=== PATIENT | female | born 1945 | race Caucasian/White ===

== ENCOUNTER 2017-06-03 18:39 | Inpatient (IN) | payer MEDICARE ==
[~2017-06-03] VITALS: Ht 160 cm; Wt 95.7 kg
--- NOTE | 2017-06-03 18:42 | ED.ADGEN ---
Past History Past Medical History: Angina, Anxiety, Depression, Other Adult General Chief Complaint Chief Complaint ".. They took some meds away... and am getting more night terrors... I just so depressed I want to .. I have got as bad when I tried to kill myself after delivery of my daughter and ended up at [facility] Psych..but been really bad since my diet in 2013.. and I just really worse the last few days..." HPI HPI Patient is a 71 year old female who presents with above hx and sent from [facility] for mental status change. Pt. recently discharged from [facility] to [facility]. Pt. threatening suicide at [facility], depressed, anxious, refusing to participate in her care. 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 Pt. currently very tearful and anxious. Pt. reports suicide ideation, but no plan. Daughter at bed side. Review of Systems Review of Systems Complaints of Depression. Constitutional: Denies fever or chills [] Eyes: Denies change in visual acuity, redness, or eye pain [] HENT: Denies nasal congestion or sore throat [] Respiratory: Denies cough or shortness of breath [] Cardiovascular: No additional information not addressed in HPI [] GI: Denies abdominal pain, nausea, vomiting, bloody stools or diarrhea [] : Denies dysuria or hematuria [] Musculoskeletal: Denies back pain or joint pain [] Integument: Denies rash or skin lesions [] Neurologic: Denies headache, focal weakness or sensory changes [] Endocrine: Denies polyuria or polydipsia [] All other systems were reviewed and found to be within normal limits, except as documented in this note. Family History Family History Non-contributory. Current Medications Current Medications Current Medications Medications (Trade) Dose Ordered Sig/Shahnaz Start Time Stop Time Status Last Admin Dose Admin Lactated Ringer's 1,000 ml @ 500 mls/hr 1X ONCE 06/03/17 18:45 06/03/17 20:44 DC 06/03/17 20:16 500 MLS/HR Allergies Allergies Allergies Coded Allergies Type Severity Reaction Last Updated Verified acetaminophen Allergy Unknown Unknown 06/03/17 Yes adhesive Allergy Unknown Unknown 06/03/17 Yes azithromycin Allergy Unknown Unknown 06/03/17 Yes hydrocodone Allergy Unknown Unknown 06/03/17 Yes latex Allergy Unknown Unknown 06/03/17 Yes nortriptyline Allergy Unknown Unknown 06/03/17 Yes olanzapine Allergy Unknown Unknown 06/03/17 Yes quetiapine Allergy Unknown Unknown 06/03/17 Yes tolmetin Allergy Unknown Unknown 06/03/17 Yes Physical Exam Physical Exam Constitutional: in acute emotional distress, non-toxic appearance. [Tearful. Crying. HENT: Normocephalic, atraumatic, bilateral external ears normal, oropharynx moist, no oral exudates, nose normal. [] Eyes: PERRLA, EOMI, conjunctiva normal, no discharge. [] Neck: Normal range of motion, no tenderness, supple, no stridor. [] Cardiovascular:Heart rate regular rhythm, no murmur [] Lungs & Thorax: Bilateral breath sounds equal at apex, with few scattered wheezes on auscultation [] Abdomen: Bowel sounds normal, soft, no tenderness, no masses, no pulsatile masses. [] Obese. Skin: Warm, dry, no erythema, no rash. [] Back: No tenderness, no CVA tenderness. [] Extremities: No tenderness, no cyanosis, no clubbing, ROM intact, no edema. [] Neurologic: Alert and oriented X 3, No gross motor or sensory function deficits from her baseline, no new focal deficits noted. [] Psychologic: Affect very anxious, judgement normal, mood depressed. Current Patient Data Vital Signs Vital Signs Date Time Temp Pulse Resp B/P (MAP) Pulse Ox O2 Delivery O2 Flow Rate FiO2 06/04/17 04:00 88 18 152/76 (101) 94 Room Air 06/03/17 18:39 98.0 Lab Results Laboratory Tests Test 06/03/17 19:08 06/03/17 19:39 White Blood Count 10.8 x10^3/uL (4.0-11.0) Red Blood Count 4.54 x10^6/uL (3.50-5.40) Hemoglobin 12.5 g/dL (12.0-15.5) Hematocrit 37.3 % (36.0-47.0) Mean Corpuscular Volume 82 fL (79-100) Mean Corpuscular Hemoglobin 28 pg (25-35) Mean Corpuscular Hemoglobin Concent 33 g/dL (31-37) Red Cell Distribution Width 15.8 % (11.5-14.5) H Platelet Count 256 x10^3/uL (140-400) Neutrophils (%) (Auto) 67 % (31-73) Lymphocytes (%) (Auto) 23 % (24-48) L Monocytes (%) (Auto) 6 % (0-9) Eosinophils (%) (Auto) 4 % (0-3) H Basophils (%) (Auto) 1 % (0-3) Neutrophils # (Auto) 7.2 x10^3uL (1.8-7.7) Lymphocytes # (Auto) 2.4 x10^3/uL (1.0-4.8) Monocytes # (Auto) 0.6 x10^3/uL (0.0-1.1) Eosinophils # (Auto) 0.4 x10^3/uL (0.0-0.7) Basophils # (Auto) 0.1 x10^3/uL (0.0-0.2) Prothrombin Time 9.5 SEC (9.4-11.4) Prothrombin Time INR 0.9 (0.9-1.1) PTT 28 SEC (23-33) Sodium Level 140 mmol/L (136-145) Potassium Level 4.2 mmol/L (3.5-5.1) Chloride Level 105 mmol/L (98-107) Carbon Dioxide Level 27 mmol/L (21-32) Anion Gap 8 (6-14) Blood Urea Nitrogen 22 mg/dL (7-20) H Creatinine 1.1 mg/dL (0.6-1.0) H Estimated GFR (Cockcroft-Gault) 49.1 Glucose Level 100 mg/dL (70-99) H Calcium Level 8.8 mg/dL (8.5-10.1) Magnesium Level 2.3 mg/dL (1.8-2.4) Creatine Kinase 47 U/L (26-192) Creatine Kinase MB (Mass) < 0.5 ng/mL (0.0-3.6) Creatine Kinase MB Relative Index 1.1 % (0-4) Troponin I Quantitative < 0.017 ng/mL (0-0.055) CD-Gjf-E-Type Natriuretic Peptide 25 pg/mL (0-124) Salicylates Level 1.6 mg/dL (2.8-20.0) L Salicylate Last Dose Date Unknown Salicylate Last Dose Time Unknown Acetaminophen Level < 2.0 mcg/mL (10-30) L Acetaminophen Last Dose Date Unknown Acetaminophen Last Dose Time Unknown Urine Collection Type Unknown Urine Color Yellow Urine Clarity Hazy Urine pH 5.5 Urine Specific [place] 1.020 Urine Protein Neg (NEG-TRACE) Urine Glucose (UA) Neg mg/dL (NEG) Urine Ketones (Stick) Neg mg/dL (NEG) Urine Blood Neg (NEG) Urine Nitrite Neg (NEG) Urine Bilirubin Neg (NEG) Urine Urobilinogen Dipstick 0.2 mg/dL (0.2 mg/dL) Urine Leukocyte Esterase Neg (NEG) Urine RBC 1-2 /HPF (0-2) Urine WBC 5-10 /HPF (0-4) Urine Squamous Epithelial Cells Many /LPF Urine Bacteria Few /HPF (0-FEW) Urine Mucus Slight /LPF Urine Opiates Screen Neg (NEG) Urine Methadone Screen Neg (NEG) Urine Barbiturates Neg (NEG) Urine Phencyclidine Screen Neg (NEG) Urine Amphetamine/Methamphetamine Neg (NEG) Urine Benzodiazepines Screen Pos (NEG) Urine Cocaine Screen Neg (NEG) Urine Cannabinoids Screen Neg (NEG) Urine Ethyl Alcohol Neg (NEG) EKG EKG My interpretation of EKG shows sinus rate 70, Lt. axis, no acute STEM findings with contralateral changes. [] Radiology/Procedures Radiology/Procedures My interpretation of CXR shows COPD changes. Borderline cardiomegaly. No acute cardiopulmonary changes. My interpretation of CT shows[no shift, mass, edema, bleed, or fx. White matter dz changes, atrophy. See formal when available. ] Course & Med Decision Making Course & Med Decision Making Pertinent Labs and Imaging studies reviewed. (See chart for details) Still awaiting Tele Psych. eval. Camera is down. 2230 hrs. Still awaiting Tele. Psych. eval. Camera is still down after IT. 2330 hrs. Requesting Telephone eval or interview with pt. if unable to get Tele Psych. eval. Pt. back of waiting list for Tele. Psych. eval. by phone. 0030 hrs. Still awaiting Tele. Psych. eval. was advised still on the list for evaluation. 0200. Still awaiting Tele. Psych. eval. 0330. Still awaiting Tele. Psych. eval 0600. - Check to Dr. Garcia. Tele. Psych currently in process at 0700. See assessment by Dr. Samina Mena- [] Final Impression Final Impression 1. Mental Status Change[] 2. Depression 3. Suicidal Ideation- No current plan 4. Anxiety Disorder 5. Restless Leg Syndrome 6. Paralytic Night Terrors 7. Elevated BUN and Creat. 8. Dehydration 9. Deconditioning 10. PTSD Problems: Dragon Disclaimer Dragon Disclaimer This electronic medical record was generated, in whole or in part, using a voice recognition dictation system. SHRUTHI RENEE MD Jun 03, 2017 18:42
[2017-06-03] MEDS ORDERED: IV RINGERS SOLUTION,LACTATED 1,000 ML IV ONE (18:45)
--- NOTE | 2017-06-03 19:03 | RAD ---
EXAM: Head CT without contrast. HISTORY: Mental status changes. TECHNIQUE: Computed tomographic images of the head were obtained without contrast. *One or more of the following individualized dose reduction techniques were utilized for this examination: 1. Automated exposure control. 2. Adjustment of the mA and/or kV according to patient size. 3. Use of iterative reconstruction technique. COMPARISON: 12/24/2004. FINDINGS: There is no acute or subacute extra-axial or intraparenchymal hemorrhage. There is no mass effect or midline shift. There is no hydrocephalus. There are areas of decreased attenuation within the cerebral white matter, nonspecific and likely related to chronic small vessel disease. The visualized portions of the orbits, paranasal sinuses and mastoid air cells are unremarkable. No suspicious calvarial lesion is seen. IMPRESSION: 1. No acute intracranial finding. Note is made that MRI is more sensitive for acute infarction. 2. Subtle areas of hypodensity within the cerebral white matter, a nonspecific finding likely due to chronic small vessel disease. Electronically signed by: Gloria Wade MD (06/03/2017 7:00 PM) [facility]
--- NOTE | 2017-06-03 19:05 | EKG ---
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
[2017-06-03 19:44] LABS: BASO # 0.1 x10^3/uL (0.0-0.2); BASO % 1 % (0-3); EOS # 0.4 x10^3/uL (0.0-0.7); EOS % 4 % (0-3); HEMATOCRIT 37.3 % (36.0-47.0); HEMOGLOBIN 12.5 g/dL (12.0-15.5); LYMPH # 2.4 x10^3/uL (1.0-4.8); LYMPH % 23 % (24-48); MEAN CORPUSCULAR HEMOGLOBIN 28 pg (25-35); MEAN CORPUSCULAR HGB CONC 33 g/dL (31-37); MEAN CORPUSCULAR VOLUME 82 fL (79-100); MONO # 0.6 x10^3/uL (0.0-1.1); MONO % 6 % (0-9); NEUT # 7.2 x10^3uL (1.8-7.7); NEUT % 67 % (31-73); PLATELET COUNT 256 x10^3/uL (140-400); RED BLOOD COUNT 4.54 x10^6/uL (3.50-5.40); RED CELL DISTRIBUTION WIDTH 15.8 % (11.5-14.5); WHITE BLOOD COUNT 10.8 x10^3/uL (4.0-11.0)
[2017-06-03 20:02] LABS: ANION GAP 8 (6-14); BLOOD UREA NITROGEN 22 mg/dL (7-20); CALCIUM 8.8 mg/dL (8.5-10.1); CARBON DIOXIDE 27 mmol/L (21-32); CHLORIDE 105 mmol/L (98-107); CREATININE 1.1 mg/dL (0.6-1.0); GFR 49.1; GLUCOSE 100 mg/dL (70-99); MAGNESIUM 2.3 mg/dL (1.8-2.4); POTASSIUM 4.2 mmol/L (3.5-5.1); SODIUM 140 mmol/L (136-145)
[2017-06-03 20:30] LABS: AMPHETAMINE/METHAMPHETAMINE NEG (NEG); BARBITURATES NEG (NEG); BENZODIAZEPINES POS (NEG); CANNABINOIDS NEG (NEG); COCAINE NEG (NEG); METHADONE NEG (NEG); OPIATES NEG (NEG); PHENCYCLIDINE NEG (NEG)
[2017-06-03 20:34] LABS: ACETAMIN < 2.0 mcg/mL (10-30); SALIC 1.6 mg/dL (2.8-20.0)
[2017-06-03 20:53] LABS: BACTERIA,URINE FEW /HPF (0-FEW); BILIRUBIN,URINE NEG (NEG); CLARITY,URINE HAZY; COLOR,URINE YELLOW; GLUCOSE,URINE NEG (NEG); NITRITE,URINE NEG (NEG); SQUAMOUS EPITHELIAL CELL,UR MANY /LPF; UROBILINOGEN,URINE 0.2 mg/dL (0.2 mg/dL)
--- NOTE | 2017-06-04 10:15 | RAD ---
PORTABLE CHEST 1V Clinical Indication: dyspnea Comparison: Chest radiograph dated 04/03/2013 Findings: Low lung volume. No focal consolidations. Normal pulmonary vasculature. No pleural effusion or pneumothorax. The cardiomediastinal silhouette is normal. Mildly atherosclerotic and tortuous thoracic aorta. No acute osseous abnormality. IMPRESSION: No acute cardiopulmonary process.
[2017-06-04] MEDS ORDERED: NARA2.5T PO (21:00)
[2017-06-04] MEDS ORDERED: IBUP600T16 PO (21:00)
[2017-06-04] MEDS ORDERED: DICL100G18 TP (21:00)
[2017-06-04] MEDS ORDERED: ATOR20TA58 PO (21:00)
[2017-06-04] MEDS ORDERED: MAGNESIUM HYDROXIDE 2,400 MG/30 ML ORAL.SUSP. PO PRN (21:00)
[2017-06-04] MEDS ORDERED: CLOB15GE TP (21:00)
[2017-06-04] MEDS ORDERED: DULO60CA6 PO (21:00)
[2017-06-04] MEDS ORDERED: LAMO100T5 PO (21:00)
[2017-06-04] MEDS ORDERED: MAG HYDROX/AL HYDROX/SIMETH 30 ML ORAL.SUSP PO PRN (21:00)
[2017-06-04] MEDS ORDERED: SUMA50TA3 PO (21:00)
[2017-06-04] MEDS ORDERED: MULT-681 PO (21:00)
[2017-06-04] MEDS ORDERED: PRAZ1CAP2 PO (21:00)
[2017-06-04] MEDS ORDERED: L. A1CAP12 PO (21:00)
[2017-06-04] MEDS ORDERED: NYST15CR TP (21:00)
[2017-06-04] MEDS ORDERED: ASPI81TA50 PO (21:00)
[2017-06-04] MEDS ORDERED: ALPR1TAB2 PO (21:00)
[2017-06-04] MEDS: ALPRAZolam 0.5 MG TABLET PO SCH (21:45)
[2017-06-04] MEDS: ATORVASTATIN CALCIUM 20 MG TABLET PO SCH (21:45)
[2017-06-04] MEDS ORDERED: PRAZOSIN 1 MG CAPSULE. PO SCH (22:00)
[2017-06-04] MEDS ORDERED: ALPRAZolam 0.25 MG TABLET PO PRN (22:30)
[2017-06-04] MEDS ORDERED: traZODone 50 MG TABLET. PO PRN (22:30)
[2017-06-04] MEDS ORDERED: hydrOXYzine PAMOATE 25 MG CAPSULE PO PRN (22:30)
--- NOTE | 2017-06-04 22:34 | PDOC ---
Exam Note: Gunner Note: Please also refer to the separate dictated note~for this date of service dictated separately.~Patient seen individually. Discussed the patient with Nursing staff reviewed the chart.~Reviewed interim history and current functioning. Reviewed vital signs,~Labs/ Radiology~and current medications noted below. Continue current treatment with the changes noted in the dictated addendum note Assessment: Vital Signs: Vital Signs Date Time Temp Pulse Resp B/P (MAP) Pulse Ox O2 Delivery O2 Flow Rate FiO2 06/04/17 21:45 88 152/76 06/04/17 04:00 18 94 Room Air 06/03/17 18:39 98.0 I&O Intake and Output 06/04/17 07:00 Intake Total 1000 ml Balance 1000 ml Intake IV Total 1000 ml Labs: Laboratory Tests Test 06/04/17 19:08 Magnesium Level 2.4 mg/dL (1.8-2.4) Current Medications: Meds: Current Medications Lactated Ringer's 1,000 ml @ 500 mls/hr 1X ONCE IV Last administered on at 20:16; Start 06/03/17 at 18:45; Stop 06/03/17 at 20:44; Status DC Al Hydroxide/Mg Hydroxide (Mylanta Plus Xs) 15 ml PRN AFTMEALHC PRN PO DYSPEPSIA; Start 06/04/17 at 21:00 Magnesium Hydroxide (Milk Of Magnesia) 2,400 mg PRN QHS PRN PO CONSTIPATION 1ST CHOICE; Start 06/04/17 at 21:00 Duloxetine HCl (Cymbalta) 60 mg DAILY PO ; Start 06/05/17 at 09:00 Lamotrigine (LaMICtal) 100 mg DAILY PO ; Start 06/05/17 at 09:00 Alprazolam (Xanax) 1 mg BID PO Last administered on 06/04/17at 21:45; Start at 21:30 Atorvastatin Calcium (Lipitor) 20 mg QHS PO Last administered on 06/04/17at 21: 45; Start 06/04/17 at 22:00 Prazosin HCl (Minipress) 1 mg QHS PO Last administered on 06/04/17at 21:45; Start 06/04/17 at 22:00 Trazodone HCl (Desyrel) 50 mg QHS PO ; Start 06/04/17 at 23:00 Trazodone HCl (Desyrel) 50 mg PRN QHS PRN PO Insomnia; Start 06/04/17 at 22:30 Active Scripts Active Reported Voltaren (Diclofenac Sodium) 100 Gm Gel..gram. 2 Gm TP PRN QID PRN Multi-Day Plus Minerals Tablet (Multivitamin-Min/Iron/FA/Vit K) 1 Each Tablet 1 Tab PO DAILY Imitrex (Sumatriptan Succinate) 50 Mg Tablet 50 Mg PO PRN QID PRN Acidophilus Capsule (L. Acidophilus/Pectin, [place]) 1 Each Capsule 1 Cap PO DAILY Nystatin 15 Gm Cream..g. 1 Frantz TP PRN TID PRN Naratriptan Hcl 2.5 Mg Tablet 2.5 Mg PO PRN Q4HRS PRN Lamictal (Lamotrigine) 100 Mg Tablet 100 Mg PO DAILY Clobetasol Propionate 15 Gm Gel..gram. 1 Frantz TP PRN QHS PRN Aspir-Low (Aspirin) 81 Mg Tablet. 81 Mg PO DAILY Prazosin Hcl 1 Mg Capsule 1 Mg PO QHS Ibuprofen 600 Mg Tablet 600 Mg PO PRN Q6HRS PRN Cymbalta (Duloxetine Hcl) 60 Mg Capsule. 60 Mg PO DAILY Atorvastatin Calcium 20 Mg Tablet 20 Mg PO QHS Xanax (Alprazolam) 1 Mg Tablet 1 Mg PO BID I have reviewed the current psychotropics carefully including drug interactions. Risk benefit ratio favors no change other than as noted in my dictated progress note. ARVIND ARAIZA MD Jun 04, 2017 22:34
[2017-06-04] MEDS ORDERED: traZODone 50 MG TABLET. PO SCH (23:00)
[2017-06-04 23:15] VITALS: BP 136/60
[2017-06-05 06:26] VITALS: BP 131/79
[2017-06-05] MEDS ORDERED: SUMAtriptan SUCCINATE 50 MG TABLET PO PRN (07:45)
[2017-06-05] MEDS ORDERED: NYSTATIN 100,000 UNIT/GM TOPICAL CREAM 15GM TUBE. TP PRN (07:45)
[2017-06-05] MEDS ORDERED: DICLOFENAC SODIUM 1% TOPICAL GEL 100GM TUBE. TP PRN (07:45)
[2017-06-05] MEDS ORDERED: CLOBETASOL EMOLLIENT 0.05% TOPICAL CREAM 15GM TUBE. TP PRN (09:00)
[2017-06-05] MEDS: lamoTRIgine 100 MG TABLET. PO SCH ×2 (09:00→09:14)
[2017-06-05] MEDS: LACTOBACILLUS RHAMNOSUS GG 1 CAPSULE. PO SCH (09:14)
[2017-06-05] MEDS: MULTIVITAMIN with MINERAL TABLET. PO SCH (09:15)
[2017-06-05] MEDS: DULoxetine HCL 60 MG CAPSULE.DR PO SCH (09:15)
[2017-06-05] MEDS: ALPRAZolam 0.5 MG TABLET PO SCH ×2 (09:15→20:01)
[2017-06-05] MEDS: ASPIRIN ENTERIC COATED 81 MG TABLET.DR. PO SCH (09:15)
[2017-06-05 13:11] LABS: THYROXINE 7.2 ug/dL (4.5-12.0)
--- NOTE | 2017-06-05 15:10 | PDOC1 ---
History of Present Illness Reason for Visit: Depression History of Present Illness Pt sent to [facility] for evaluation in [facility] unit due to behaviors exhibited at [facility] facility. Pt reports she was at [facility] due to "unable to walk," and was then sent to [facility]. Per the medical record, pt had been crying, fearful, having passive SI, "out of body experience killing myself," and refusing PT. Pt reports that she just feels like she doesn't want to do PT. She denies ZAMBRANO, vision changes, sore throat, rash, chest pain, SOA, diarrhea, n/v , abd pain, blood in stool or urine, leg swelling, cough, or numbness. Chief Complaint: PSYCH EVALUATION Allergies: Coded Allergies: acetaminophen (Verified Allergy, Unknown, Unknown, 06/03/17) adhesive (Verified Allergy, Unknown, Unknown, 06/03/17) azithromycin (Verified Allergy, Unknown, Unknown, 06/03/17) hydrocodone (Verified Allergy, Unknown, Unknown, 06/03/17) latex (Verified Allergy, Unknown, Unknown, 06/03/17) nortriptyline (Verified Allergy, Unknown, Unknown, 06/03/17) olanzapine (Verified Allergy, Unknown, Unknown, 06/03/17) quetiapine (Verified Allergy, Unknown, Unknown, 06/03/17) tolmetin (Verified Allergy, Unknown, Unknown, 06/03/17) Past Medical History Cardiac: HTN, hyperipidemia Psych: Anxiety, Depression, Other (PTSD) Past Surgical History: No pertinent history Family History: No pertinent hx Past Social History Smoke: Quit Alcohol: none Drugs: None Lives: Alone Review of Systems Review Of Systems Fourteen system , review of systems has been reviewed. See HPI for pertinent positives and negative responses, other hills all other systems are negative, non pertinent or non contributory Allergies: Coded Allergies: acetaminophen (Verified Allergy, Unknown, Unknown, 06/03/17) adhesive (Verified Allergy, Unknown, Unknown, 06/03/17) azithromycin (Verified Allergy, Unknown, Unknown, 06/03/17) hydrocodone (Verified Allergy, Unknown, Unknown, 06/03/17) latex (Verified Allergy, Unknown, Unknown, 06/03/17) nortriptyline (Verified Allergy, Unknown, Unknown, 06/03/17) olanzapine (Verified Allergy, Unknown, Unknown, 06/03/17) quetiapine (Verified Allergy, Unknown, Unknown, 06/03/17) tolmetin (Verified Allergy, Unknown, Unknown, 06/03/17) Medications Current Medications Lactated Ringer's 1,000 ml @ 500 mls/hr 1X ONCE IV Last administered on at 20:16; Start 06/03/17 at 18:45; Stop 06/03/17 at 20:44; Status DC Al Hydroxide/Mg Hydroxide (Mylanta Plus Xs) 15 ml PRN AFTMEALHC PRN PO DYSPEPSIA; Start 06/04/17 at 21:00 Magnesium Hydroxide (Milk Of Magnesia) 2,400 mg PRN QHS PRN PO CONSTIPATION 1ST CHOICE; Start 06/04/17 at 21:00 Duloxetine HCl (Cymbalta) 60 mg DAILY PO Last administered on 06/05/17at 09:15; Start 06/05/17 at 09:00 Lamotrigine (LaMICtal) 100 mg DAILY PO ; Start 06/05/17 at 09:00 Alprazolam (Xanax) 1 mg BID PO Last administered on 06/05/17at 09:15; Start at 21:30 Atorvastatin Calcium (Lipitor) 20 mg QHS PO Last administered on 06/04/17at 21: 45; Start 06/04/17 at 22:00 Prazosin HCl (Minipress) 1 mg QHS PO Last administered on 06/04/17at 21:45; Start 06/04/17 at 22:00 Trazodone HCl (Desyrel) 50 mg QHS PO Last administered on 06/04/17at 22:33; Start 06/04/17 at 23:00 Trazodone HCl (Desyrel) 50 mg PRN QHS PRN PO Insomnia; Start 06/04/17 at 22:30 Alprazolam (Xanax) 0.25 mg PRN Q2HR PRN PO ANXIETY / AGITATION; Start 06/04/17 at 22:30 Hydroxyzine Pamoate (Vistaril) 25 mg PRN Q2HR PRN PO Anxiety; Start 06/04/17 at 22:30 Aspirin (Aspirin Enteric Coated) 81 mg DAILY PO Last administered on 06/05/17at 09:15; Start 06/05/17 at 09:00 Diclofenac Sodium (Voltaren) 2 frantz PRN QID PRN TP PAIN; Start 06/05/17 at 07:45 Nystatin (Mycostatin) 1 frantz PRN TID PRN TP Yeast; Start 06/05/17 at 07:45 Sumatriptan Succinate (Imitrex) 50 mg PRN QID PRN PO MIGRAINE HEADACHE; Start 06/05/17 at 07:45 Clobetasol Propionate 1 frantz PRN QHS PRN TP ITCHING; Start 06/05/17 at 09:00 Lactobacillus Rhamnosus (Culturelle) 1 cap DAILY PO Last administered on at 09:14; Start 06/05/17 at 09:00 Multivitamins/ Calcium (Thera-M Plus) 1 tab DAILY PO Last administered on at 09:15; Start 06/05/17 at 09:00 Active Scripts Active Reported Voltaren (Diclofenac Sodium) 100 Gm Gel..gram. 2 Gm TP PRN QID PRN Multi-Day Plus Minerals Tablet (Multivitamin-Min/Iron/FA/Vit K) 1 Each Tablet 1 Tab PO DAILY Imitrex (Sumatriptan Succinate) 50 Mg Tablet 50 Mg PO PRN QID PRN Acidophilus Capsule (L. Acidophilus/Pectin, [place]) 1 Each Capsule 1 Cap PO DAILY Nystatin 15 Gm Cream..g. 1 Frantz TP PRN TID PRN Naratriptan Hcl 2.5 Mg Tablet 2.5 Mg PO PRN Q4HRS PRN Lamictal (Lamotrigine) 100 Mg Tablet 100 Mg PO DAILY Clobetasol Propionate 15 Gm Gel..gram. 1 Frantz TP PRN QHS PRN Aspir-Low (Aspirin) 81 Mg Tablet.dr 81 Mg PO DAILY Prazosin Hcl 1 Mg Capsule 1 Mg PO QHS Ibuprofen 600 Mg Tablet 600 Mg PO PRN Q6HRS PRN Cymbalta (Duloxetine Hcl) 60 Mg Capsule.dr 60 Mg PO DAILY Atorvastatin Calcium 20 Mg Tablet 20 Mg PO QHS Xanax (Alprazolam) 1 Mg Tablet 1 Mg PO BID Exam Vital Signs Vital Signs Date Time Temp Pulse Resp B/P (MAP) Pulse Ox O2 Delivery O2 Flow Rate FiO2 06/05/17 06:26 97.9 81 20 131/79 (96) 93 06/04/17 04:00 Room Air General Appearance: Alert, Oriented X3, Cooperative, No acute distress HEENT: Atraumatic, PERRLA, EOMI, Mucous membr. moist/pink, Other (Neck supple, full ROM, no JVD, no LAD, no thyromegaly) Respiratory: Clear to auscultation, Normal air movement Heart: Regular rate, Normal S1, Normal S2, No murmurs Abdominal: Normal bowel sounds, Soft, No tenderness, No hepatospenomegaly, No masses Extremities: No cyanosis, No edema, Normal pulses, No tenderness/swelling Skin: No rashes, No breakdown Neuro: Normal speech, Strength at 5/5 X4 ext, Normal tone, Sensation intact, Cranial nerves 3-12 NL, Reflexes 2+ Psych/Mental Status: Mental status NL, Other (Flat affect) Assessment/Plan Assessment/Plan 1. Depression w/ psychosis: Per Dr. Gentile. 2. HTN: BP stable, continue home meds. 3. HLP: Continue home meds. 4. DVT proph: Pt is ambulatory w/ walker, encourage ambulation TID. COURSE Allergies Coded Allergies Type Severity Reaction Last Updated Verified acetaminophen Allergy Unknown Unknown 06/03/17 Yes adhesive Allergy Unknown Unknown 06/03/17 Yes azithromycin Allergy Unknown Unknown 06/03/17 Yes hydrocodone Allergy Unknown Unknown 06/03/17 Yes latex Allergy Unknown Unknown 06/03/17 Yes nortriptyline Allergy Unknown Unknown 06/03/17 Yes olanzapine Allergy Unknown Unknown 06/03/17 Yes quetiapine Allergy Unknown Unknown 06/03/17 Yes tolmetin Allergy Unknown Unknown 06/03/17 Yes Laboratory Tests Test 06/04/17 19:08 Magnesium Level 2.4 mg/dL (1.8-2.4) Iron Level 45 ug/dL (50-170) Total Iron Binding Capacity 329 ug/dL (250-450) Iron Saturation 14 % (15-34) Triglycerides Level 116 mg/dL (0-150) Cholesterol Level 153 mg/dL (0-200) LDL Cholesterol, Calculated 77 mg/dL (0-100) VLDL Cholesterol, Calculated 23 mg/dL (0-40) Non-HDL Cholesterol Calculated 100 mg/dL (0-129) HDL Cholesterol 53 mg/dL (40-60) Cholesterol/HDL Ratio 2.0 Thyroxine (T4) 7.2 ug/dL (4.5-12.0) Total Triiodothyronine 121 ng/dL (71-180) Current Medications Medications (Trade) Dose Ordered Sig/Shahnaz Route PRN Reason Start Time Stop Time Status Last Admin Dose Admin Al Hydroxide/Mg Hydroxide (Mylanta Plus Xs) 15 ml PRN AFTMEALHC PRN PO DYSPEPSIA 06/04/17 21:00 Magnesium Hydroxide (Milk Of Magnesia) 2,400 mg PRN QHS PRN PO CONSTIPATION 1ST CHOICE 06/04/17 21:00 Duloxetine HCl (Cymbalta) 60 mg DAILY PO 06/05/17 09:00 06/05/17 09:15 Lamotrigine (LaMICtal) 100 mg DAILY PO 06/05/17 09:00 Alprazolam (Xanax) 1 mg BID PO 06/04/17 21:30 06/05/17 09:15 Atorvastatin Calcium (Lipitor) 20 mg QHS PO 06/04/17 22:00 06/04/17 21:45 Prazosin HCl (Minipress) 1 mg QHS PO 06/04/17 22:00 06/04/17 21:45 Trazodone HCl (Desyrel) 50 mg QHS PO 06/04/17 23:00 06/04/17 22:33 Trazodone HCl (Desyrel) 50 mg PRN QHS PRN PO Insomnia 06/04/17 22:30 Alprazolam (Xanax) 0.25 mg PRN Q2HR PRN PO ANXIETY / AGITATION 06/04/17 22:30 Hydroxyzine Pamoate (Vistaril) 25 mg PRN Q2HR PRN PO Anxiety 06/04/17 22:30 Aspirin (Aspirin Enteric Coated) 81 mg DAILY PO 06/05/17 09:00 06/05/17 09:15 Diclofenac Sodium (Voltaren) 2 frantz PRN QID PRN TP PAIN 06/05/17 07:45 Nystatin (Mycostatin) 1 frantz PRN TID PRN TP Yeast 06/05/17 07:45 Sumatriptan Succinate (Imitrex) 50 mg PRN QID PRN PO MIGRAINE HEADACHE 06/05/17 07:45 Clobetasol Propionate 1 frantz PRN QHS PRN TP ITCHING 06/05/17 09:00 Lactobacillus Rhamnosus (Culturelle) 1 cap DAILY PO 06/05/17 09:00 06/05/17 09:14 Multivitamins/ Calcium (Thera-M Plus) 1 tab DAILY PO 06/05/17 09:00 06/05/17 09:15 I & O 06/05/17 00:00 Intake Total 60 ml Balance 60 ml Vital Signs Date Time Temp Pulse Resp B/P (MAP) Pulse Ox O2 Delivery O2 Flow Rate FiO2 06/05/17 06:26 97.9 81 20 131/79 (96) 93 06/04/17 04:00 Room Air EKG: NSR PORTABLE CHEST 1V Clinical Indication: dyspnea Comparison: Chest radiograph dated 04/03/2013 Findings: Low lung volume. No focal consolidations. Normal pulmonary vasculature. No pleural effusion or pneumothorax. The cardiomediastinal silhouette is normal. Mildly atherosclerotic and tortuous thoracic aorta. No acute osseous abnormality. IMPRESSION: No acute cardiopulmonary process. EXAM: Head CT without contrast. HISTORY: Mental status changes. TECHNIQUE: Computed tomographic images of the head were obtained without contrast. *One or more of the following individualized dose reduction techniques were utilized for this examination: 1. Automated exposure control. 2. Adjustment of the mA and/or kV according to patient size. 3. Use of iterative reconstruction technique. COMPARISON: 12/24/2004. FINDINGS: There is no acute or subacute extra-axial or intraparenchymal hemorrhage. There is no mass effect or midline shift. There is no hydrocephalus. There are areas of decreased attenuation within the cerebral white matter, nonspecific and likely related to chronic small vessel disease. The visualized portions of the orbits, paranasal sinuses and mastoid air cells are unremarkable. No suspicious calvarial lesion is seen. IMPRESSION: 1. No acute intracranial finding. Note is made that MRI is more sensitive for acute infarction. 2. Subtle areas of hypodensity within the cerebral white matter, a nonspecific finding likely due to chronic small vessel disease. MAXWELL LALA MD Jun 05, 2017 15:10
[2017-06-05 16:15] VITALS: BP 141/62
[2017-06-05 18:09] LABS: HEMOGLOBIN A1C 5.3 % (4.8-5.6)
--- NOTE | 2017-06-05 18:47 | PDOC ---
Exam Note: Gunner Note: Please also refer to the separate dictated note~for this date of service dictated separately.~Patient seen individually. Discussed the patient with Nursing staff reviewed the chart.~Reviewed interim history and current functioning. Reviewed vital signs,~Labs/ Radiology~and current medications noted below. Continue current treatment with the changes noted in the dictated addendum note Assessment: Vital Signs: Vital Signs Date Time Temp Pulse Resp B/P (MAP) Pulse Ox O2 Delivery O2 Flow Rate FiO2 06/05/17 16:15 98.4 92 20 141/62 (88) 97 06/04/17 04:00 Room Air I&O Intake and Output 06/05/17 07:00 Intake Total 60 ml Balance 60 ml Intake Oral 60 ml Labs: Laboratory Tests Test 06/04/17 19:08 Hemoglobin A1c 5.3 % (4.8-5.6) Magnesium Level 2.4 mg/dL (1.8-2.4) Iron Level 45 ug/dL (50-170) L Total Iron Binding Capacity 329 ug/dL (250-450) Iron Saturation 14 % (15-34) L Triglycerides Level 116 mg/dL (0-150) Cholesterol Level 153 mg/dL (0-200) LDL Cholesterol, Calculated 77 mg/dL (0-100) VLDL Cholesterol, Calculated 23 mg/dL (0-40) Non-HDL Cholesterol Calculated 100 mg/dL (0-129) HDL Cholesterol 53 mg/dL (40-60) Cholesterol/HDL Ratio 2.0 Thyroxine (T4) 7.2 ug/dL (4.5-12.0) Total Triiodothyronine (TT3) 121 ng/dL (71-180) Current Medications: Meds: Current Medications Lactated Ringer's 1,000 ml @ 500 mls/hr 1X ONCE IV Last administered on at 20:16; Start 06/03/17 at 18:45; Stop 06/03/17 at 20:44; Status DC Al Hydroxide/Mg Hydroxide (Mylanta Plus Xs) 15 ml PRN AFTMEALHC PRN PO DYSPEPSIA; Start 06/04/17 at 21:00 Magnesium Hydroxide (Milk Of Magnesia) 2,400 mg PRN QHS PRN PO CONSTIPATION 1ST CHOICE; Start 06/04/17 at 21:00 Duloxetine HCl (Cymbalta) 60 mg DAILY PO Last administered on 06/05/17 09:15; Start 06/05/17 at 09:00 Lamotrigine (LaMICtal) 100 mg DAILY PO ; Start 06/05/17 at 09:00 Alprazolam (Xanax) 1 mg BID PO Last administered on 06/05/17at 09:15; Start at 21:30 Atorvastatin Calcium (Lipitor) 20 mg QHS PO Last administered on 06/04/17 21: 45; Start 06/04/17 at 22:00 Prazosin HCl (Minipress) 1 mg QHS PO Last administered on 06/04/17 21:45; Start 06/04/17 at 22:00 Trazodone HCl (Desyrel) 50 mg QHS PO Last administered on 06/04/17at 22:33; Start 06/04/17 at 23:00 Trazodone HCl (Desyrel) 50 mg PRN QHS PRN PO Insomnia; Start 06/04/17 at 22:30 Alprazolam (Xanax) 0.25 mg PRN Q2HR PRN PO ANXIETY / AGITATION; Start 06/04/17 at 22:30 Hydroxyzine Pamoate (Vistaril) 25 mg PRN Q2HR PRN PO Anxiety; Start 06/04/17 at 22:30 Aspirin (Aspirin Enteric Coated) 81 mg DAILY PO Last administered on 06/05/17at 09:15; Start 06/05/17 at 09:00 Diclofenac Sodium (Voltaren) 2 frantz PRN QID PRN TP PAIN; Start 06/05/17 at 07:45 Nystatin (Mycostatin) 1 frantz PRN TID PRN TP Yeast; Start 06/05/17 at 07:45 Sumatriptan Succinate (Imitrex) 50 mg PRN QID PRN PO MIGRAINE HEADACHE; Start 06/05/17 at 07:45 Clobetasol Propionate 1 frantz PRN QHS PRN TP ITCHING; Start 06/05/17 at 09:00 Lactobacillus Rhamnosus (Culturelle) 1 cap DAILY PO Last administered on at 09:14; Start 06/05/17 at 09:00 Multivitamins/ Calcium (Thera-M Plus) 1 tab DAILY PO Last administered on at 09:15; Start 06/05/17 at 09:00 Active Scripts Active Reported Voltaren (Diclofenac Sodium) 100 Gm Gel..gram. 2 Gm TP PRN QID PRN Multi-Day Plus Minerals Tablet (Multivitamin-Min/Iron/FA/Vit K) 1 Each Tablet 1 Tab PO DAILY Imitrex (Sumatriptan Succinate) 50 Mg Tablet 50 Mg PO PRN QID PRN Acidophilus Capsule (L. Acidophilus/Pectin, [place]) 1 Each Capsule 1 Cap PO DAILY Nystatin 15 Gm Cream..g. 1 Frantz TP PRN TID PRN Naratriptan Hcl 2.5 Mg Tablet 2.5 Mg PO PRN Q4HRS PRN Lamictal (Lamotrigine) 100 Mg Tablet 100 Mg PO DAILY Clobetasol Propionate 15 Gm Gel..gram. 1 Frantz TP PRN QHS PRN Aspir-Low (Aspirin) 81 Mg Tablet.dr 81 Mg PO DAILY Prazosin Hcl 1 Mg Capsule 1 Mg PO QHS Ibuprofen 600 Mg Tablet 600 Mg PO PRN Q6HRS PRN Cymbalta (Duloxetine Hcl) 60 Mg Capsule. 60 Mg PO DAILY Atorvastatin Calcium 20 Mg Tablet 20 Mg PO QHS Xanax (Alprazolam) 1 Mg Tablet 1 Mg PO BID I have reviewed the current psychotropics carefully including drug interactions. Risk benefit ratio favors no change other than as noted in my dictated progress note. Diagnosis: Problems: (1) Anxiety disorder (2) Impulse control disorder (3) Major depressive disorder, recurrent episode (4) Obsessive compulsive disorder (5) Panic disorder with agoraphobia and severe panic attacks (6) Post traumatic stress disorder ARVIND ARAIZA MD Jun 05, 2017 18:47
[2017-06-05] MEDS ORDERED: traZODone 50 MG TABLET. PO PRN (19:00)
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
[2017-06-05] MEDS: ATORVASTATIN CALCIUM 20 MG TABLET PO SCH (19:57)
[2017-06-05] MEDS: traZODone 50 MG TABLET. PO SCH (19:58)
[2017-06-05] MEDS ORDERED: PRAZOSIN 1 MG CAPSULE. PO SCH (21:00)
--- NOTE | 2017-06-05 22:22 | PDOC ---
Exam Note: Gunner Note: Please also refer to the separate dictated note~for this date of service dictated separately.~Patient seen individually. Discussed the patient with Nursing staff reviewed the chart.~Reviewed interim history and current functioning. Reviewed vital signs,~Labs/ Radiology~and current medications noted below. Continue current treatment with the changes noted in the dictated addendum note Assessment: Vital Signs: Vital Signs Date Time Temp Pulse Resp B/P (MAP) Pulse Ox O2 Delivery O2 Flow Rate FiO2 06/05/17 19:59 92 141/62 06/05/17 16:15 98.4 20 97 06/04/17 04:00 Room Air I&O Intake and Output 06/05/17 07:00 Intake Total 60 ml Balance 60 ml Intake Oral 60 ml Current Medications: Meds: Current Medications Lactated Ringer's 1,000 ml @ 500 mls/hr 1X ONCE IV Last administered on at 20:16; Start 06/03/17 at 18:45; Stop 06/03/17 at 20:44; Status DC Al Hydroxide/Mg Hydroxide (Mylanta Plus Xs) 15 ml PRN AFTMEALHC PRN PO DYSPEPSIA; Start 06/04/17 at 21:00 Magnesium Hydroxide (Milk Of Magnesia) 2,400 mg PRN QHS PRN PO CONSTIPATION 1ST CHOICE; Start 06/04/17 at 21:00 Duloxetine HCl (Cymbalta) 60 mg DAILY PO Last administered on 06/05/17at 09:15; Start 06/05/17 at 09:00 Lamotrigine (LaMICtal) 100 mg DAILY PO ; Start 06/05/17 at 09:00; Stop 06/05/17 at 18:50; Status DC Alprazolam (Xanax) 1 mg BID PO Last administered on 06/05/17at 20:01; Start at 21:30 Atorvastatin Calcium (Lipitor) 20 mg QHS PO Last administered on 06/05/17at 19: 57; Start 06/04/17 at 22:00 Prazosin HCl (Minipress) 1 mg QHS PO Last administered on 06/04/17at 21:45; Start 06/04/17 at 22:00; Stop 06/05/17 at 18:50; Status DC Trazodone HCl (Desyrel) 50 mg QHS PO Last administered on 06/04/17at 22:33; Start 06/04/17 at 23:00; Stop 06/05/17 at 18:50; Status DC Trazodone HCl (Desyrel) 50 mg PRN QHS PRN PO Insomnia; Start 06/04/17 at 22:30 ; Stop 06/05/17 at 18:50; Status DC Alprazolam (Xanax) 0.25 mg PRN Q2HR PRN PO ANXIETY / AGITATION; Start 06/04/17 at 22:30 Hydroxyzine Pamoate (Vistaril) 25 mg PRN Q2HR PRN PO Anxiety; Start 06/04/17 at 22:30 Aspirin (Aspirin Enteric Coated) 81 mg DAILY PO Last administered on 06/05/17at 09:15; Start 06/05/17 at 09:00 Diclofenac Sodium (Voltaren) 2 frantz PRN QID PRN TP PAIN; Start 06/05/17 at 07:45 Nystatin (Mycostatin) 1 frantz PRN TID PRN TP Yeast; Start 06/05/17 at 07:45 Sumatriptan Succinate (Imitrex) 50 mg PRN QID PRN PO MIGRAINE HEADACHE; Start 06/05/17 at 07:45 Clobetasol Propionate 1 frantz PRN QHS PRN TP ITCHING; Start 06/05/17 at 09:00 Lactobacillus Rhamnosus (Culturelle) 1 cap DAILY PO Last administered on at 09:14; Start 06/05/17 at 09:00 Multivitamins/ Calcium (Thera-M Plus) 1 tab DAILY PO Last administered on at 09:15; Start 06/05/17 at 09:00 Lamotrigine (LaMICtal) 150 mg DAILY PO ; Start 06/06/17 at 09:00 Prazosin HCl (Minipress) 2 mg QHS PO Last administered on 06/05/17at 19:59; Start 06/05/17 at 21:00 Trazodone HCl (Desyrel) 25 mg PRN QHS PRN PO INSOMNIA; Start 06/05/17 at 19:00 Trazodone HCl (Desyrel) 25 mg QHS PO Last administered on 06/05/17at 19:58; Start 06/05/17 at 21:00 Active Scripts Active Reported Voltaren (Diclofenac Sodium) 100 Gm Gel..gram. 2 Gm TP PRN QID PRN Multi-Day Plus Minerals Tablet (Multivitamin-Min/Iron/FA/Vit K) 1 Each Tablet 1 Tab PO DAILY Imitrex (Sumatriptan Succinate) 50 Mg Tablet 50 Mg PO PRN QID PRN Acidophilus Capsule (L. Acidophilus/Pectin, [place]) 1 Each Capsule 1 Cap PO DAILY Nystatin 15 Gm Cream..g. 1 Frantz TP PRN TID PRN Naratriptan Hcl 2.5 Mg Tablet 2.5 Mg PO PRN Q4HRS PRN Lamictal (Lamotrigine) 100 Mg Tablet 100 Mg PO DAILY Clobetasol Propionate 15 Gm Gel..gram. 1 Frantz TP PRN QHS PRN Aspir-Low (Aspirin) 81 Mg Tablet.dr 81 Mg PO DAILY Prazosin Hcl 1 Mg Capsule 1 Mg PO QHS Ibuprofen 600 Mg Tablet 600 Mg PO PRN Q6HRS PRN Cymbalta (Duloxetine Hcl) 60 Mg Capsule.dr 60 Mg PO DAILY Atorvastatin Calcium 20 Mg Tablet 20 Mg PO QHS Xanax (Alprazolam) 1 Mg Tablet 1 Mg PO BID I have reviewed the current psychotropics carefully including drug interactions. Risk benefit ratio favors no change other than as noted in my dictated progress note. Diagnosis: Problems: (1) Panic disorder with agoraphobia and severe panic attacks (2) Anxiety disorder (3) Impulse control disorder (4) Obsessive compulsive disorder (5) Post traumatic stress disorder (6) Major depressive disorder, recurrent episode ARVIND ARAIZA MD Jun 05, 2017 22:22
[2017-06-06 06:16] VITALS: BP 116/69
[2017-06-06] MEDS: ASPIRIN ENTERIC COATED 81 MG TABLET.DR. PO SCH (09:41)
[2017-06-06] MEDS: LACTOBACILLUS RHAMNOSUS GG 1 CAPSULE. PO SCH (09:41)
[2017-06-06] MEDS: DULoxetine HCL 60 MG CAPSULE.DR PO SCH (09:42)
[2017-06-06] MEDS: ALPRAZolam 0.5 MG TABLET PO SCH ×2 (09:42→20:07)
[2017-06-06] MEDS: MULTIVITAMIN with MINERAL TABLET. PO SCH (09:42)
[2017-06-06] MEDS: lamoTRIgine 100 MG TABLET. PO SCH (09:44)
[2017-06-06] MEDS: LIDOCAINE (700MG/PATCH) PATCH. TD SCH ×2 (11:30→11:40)
[2017-06-06] MEDS: IBUPROFEN 600 MG TABLET. PO PRN ×2 (11:41→18:28)
[2017-06-06 16:13] VITALS: BP 129/57
[2017-06-06] MEDS: ATORVASTATIN CALCIUM 20 MG TABLET PO SCH (20:04)
[2017-06-06] MEDS: PRAZOSIN 1 MG CAPSULE. PO SCH (20:04)
[2017-06-06] MEDS: traZODone 50 MG TABLET. PO SCH (20:05)
[2017-06-06] MEDS: PATCH REMOVAL. MC SCH (20:05)
[2017-06-06] MEDS ORDERED: NYSTATIN TOPICAL POWDER 15GM BOTTLE. TP ONE (21:25)
--- NOTE | 2017-06-06 21:34 | PDOC ---
Exam Note: Gunner Note: Please also refer to the separate dictated note~for this date of service dictated separately.~Patient seen individually. Discussed the patient with Nursing staff reviewed the chart.~Reviewed interim history and current functioning. Reviewed vital signs,~Labs/ Radiology~and current medications noted below. Continue current treatment with the changes noted in the dictated addendum note Assessment: Vital Signs: Vital Signs Date Time Temp Pulse Resp B/P (MAP) Pulse Ox O2 Delivery O2 Flow Rate FiO2 06/06/17 20:04 82 129/57 06/06/17 16:13 97.6 20 92 06/04/17 04:00 Room Air I&O Intake and Output 06/06/17 07:00 Intake Total 1320 ml Balance 1320 ml Intake Oral 1320 ml # Voids 1 Current Medications: Meds: Current Medications Lactated Ringer's 1,000 ml @ 500 mls/hr 1X ONCE IV Last administered on at 20:16; Start 06/03/17 at 18:45; Stop 06/03/17 at 20:44; Status DC Al Hydroxide/Mg Hydroxide (Mylanta Plus Xs) 15 ml PRN AFTMEALHC PRN PO DYSPEPSIA; Start 06/04/17 at 21:00 Magnesium Hydroxide (Milk Of Magnesia) 2,400 mg PRN QHS PRN PO CONSTIPATION 1ST CHOICE; Start 06/04/17 at 21:00 Duloxetine HCl (Cymbalta) 60 mg DAILY PO Last administered on 06/06/17at 09:42; Start 06/05/17 at 09:00 Lamotrigine (LaMICtal) 100 mg DAILY PO ; Start 06/05/17 at 09:00; Stop 06/05/17 at 18:50; Status DC Alprazolam (Xanax) 1 mg BID PO Last administered on 06/06/17at 20:07; Start at 21:30 Atorvastatin Calcium (Lipitor) 20 mg QHS PO Last administered on 06/06/17at 20: 04; Start 06/04/17 at 22:00 Prazosin HCl (Minipress) 1 mg QHS PO Last administered on 06/04/17at 21:45; Start 06/04/17 at 22:00; Stop 06/05/17 at 18:50; Status DC Trazodone HCl (Desyrel) 50 mg QHS PO Last administered on 06/04/17at 22:33; Start 06/04/17 at 23:00; Stop 06/05/17 at 18:50; Status DC Trazodone HCl (Desyrel) 50 mg PRN QHS PRN PO Insomnia; Start 06/04/17 at 22:30 ; Stop 06/05/17 at 18:50; Status DC Alprazolam (Xanax) 0.25 mg PRN Q2HR PRN PO ANXIETY / AGITATION; Start 06/04/17 at 22:30 Hydroxyzine Pamoate (Vistaril) 25 mg PRN Q2HR PRN PO Anxiety Last administered on 06/06/17at 04:58; Start 06/04/17 at 22:30 Aspirin (Aspirin Enteric Coated) 81 mg DAILY PO Last administered on 06/06/17at 09:41; Start 06/05/17 at 09:00 Diclofenac Sodium (Voltaren) 2 frantz PRN QID PRN TP PAIN; Start 06/05/17 at 07:45 Nystatin (Mycostatin) 1 frantz PRN TID PRN TP Yeast; Start 06/05/17 at 07:45 Sumatriptan Succinate (Imitrex) 50 mg PRN QID PRN PO MIGRAINE HEADACHE; Start 06/05/17 at 07:45 Clobetasol Propionate 1 frantz PRN QHS PRN TP ITCHING; Start 06/05/17 at 09:00 Lactobacillus Rhamnosus (Culturelle) 1 cap DAILY PO Last administered on at 09:41; Start 06/05/17 at 09:00 Multivitamins/ Calcium (Thera-M Plus) 1 tab DAILY PO Last administered on at 09:42; Start 06/05/17 at 09:00 Lamotrigine (LaMICtal) 150 mg DAILY PO Last administered on 06/06/17at 09:44; Start 06/06/17 at 09:00 Prazosin HCl (Minipress) 2 mg QHS PO Last administered on 06/05/17at 19:59; Start 06/05/17 at 21:00; Stop 06/06/17 at 19:21; Status DC Trazodone HCl (Desyrel) 25 mg PRN QHS PRN PO INSOMNIA; Start 06/05/17 at 19:00 Trazodone HCl (Desyrel) 25 mg QHS PO Last administered on 06/06/17at 20:05; Start 06/05/17 at 21:00 Ibuprofen (Motrin) 600 mg PRN Q6HRS PRN PO PAIN Last administered on 06/06/17at 18:28; Start 06/06/17 at 11:30 Lidocaine (Lidoderm) 1 patch DAILY TD ; Start 06/06/17 at 11:30 Miscellaneous (Lidoderm Patch Removal) 1 ea QHS MC Last administered on at 20:05; Start 06/06/17 at 21:00 Prazosin HCl (Minipress) 3 mg QHS PO Last administered on 06/06/17at 20:04; Start 06/06/17 at 21:00 Nystatin (Nystop) 1 frantz BID TP ; Start 06/07/17 at 09:00 Nystatin (Nystop) 15 frantz STK-MED ONCE TP Last administered on 06/06/17at 21:25; Start 06/06/17 at 21:25; Stop 06/06/17 at 21:26; Status DC Active Scripts Active Reported Voltaren (Diclofenac Sodium) 100 Gm Gel..gram. 2 Gm TP PRN QID PRN Multi-Day Plus Minerals Tablet (Multivitamin-Min/Iron/FA/Vit K) 1 Each Tablet 1 Tab PO DAILY Imitrex (Sumatriptan Succinate) 50 Mg Tablet 50 Mg PO PRN QID PRN Acidophilus Capsule (L. Acidophilus/Pectin, [place]) 1 Each Capsule 1 Cap PO DAILY Nystatin 15 Gm Cream..g. 1 Frantz TP PRN TID PRN Naratriptan Hcl 2.5 Mg Tablet 2.5 Mg PO PRN Q4HRS PRN Lamictal (Lamotrigine) 100 Mg Tablet 100 Mg PO DAILY Clobetasol Propionate 15 Gm Gel..gram. 1 Frantz TP PRN QHS PRN Aspir-Low (Aspirin) 81 Mg Tablet. 81 Mg PO DAILY Prazosin Hcl 1 Mg Capsule 1 Mg PO QHS Ibuprofen 600 Mg Tablet 600 Mg PO PRN Q6HRS PRN Cymbalta (Duloxetine Hcl) 60 Mg Capsule. 60 Mg PO DAILY Atorvastatin Calcium 20 Mg Tablet 20 Mg PO QHS Xanax (Alprazolam) 1 Mg Tablet 1 Mg PO BID I have reviewed the current psychotropics carefully including drug interactions. Risk benefit ratio favors no change other than as noted in my dictated progress note. Diagnosis: Problems: (1) Panic disorder with agoraphobia and severe panic attacks (2) Anxiety disorder (3) Impulse control disorder (4) Obsessive compulsive disorder (5) Post traumatic stress disorder (6) Major depressive disorder, recurrent episode ARVIND ARAIZA MD Jun 06, 2017 21:34
[2017-06-07 06:30] VITALS: BP 110/65
[2017-06-07] MEDS: lamoTRIgine 100 MG TABLET. PO SCH (09:01)
[2017-06-07] MEDS: DULoxetine HCL 60 MG CAPSULE.DR PO SCH (09:01)
[2017-06-07] MEDS: MULTIVITAMIN with MINERAL TABLET. PO SCH (09:01)
[2017-06-07] MEDS: LACTOBACILLUS RHAMNOSUS GG 1 CAPSULE. PO SCH (09:02)
[2017-06-07] MEDS: ALPRAZolam 0.5 MG TABLET PO SCH ×2 (09:05→19:47)
[2017-06-07] MEDS: ASPIRIN ENTERIC COATED 81 MG TABLET.DR. PO SCH (09:05)
[2017-06-07] MEDS: IBUPROFEN 600 MG TABLET. PO PRN (09:33)
[2017-06-07] MEDS: NYSTATIN TOPICAL POWDER 15GM BOTTLE. TP SCH ×2 (09:34→19:47)
[2017-06-07] MEDS: LIDOCAINE (700MG/PATCH) PATCH. TD SCH (09:34)
[2017-06-07] MEDS ORDERED: LIDOCAINE (700MG/PATCH) PATCH. TD PRN (13:00)
[2017-06-07 15:56] VITALS: BP 128/67
[2017-06-07] MEDS: PATCH REMOVAL. MC SCH (19:43)
[2017-06-07] MEDS: ATORVASTATIN CALCIUM 20 MG TABLET PO SCH (19:46)
[2017-06-07] MEDS: PRAZOSIN 1 MG CAPSULE. PO SCH (19:46)
[2017-06-07] MEDS: traZODone 50 MG TABLET. PO SCH (19:47)
[2017-06-07] MEDS ORDERED: PATCH REMOVAL. MC SCH (21:00)
--- NOTE | 2017-06-07 21:35 | PDOC ---
Exam Note: Gunner Note: Please also refer to the separate dictated note~for this date of service dictated separately.~Patient seen individually. Discussed the patient with Nursing staff reviewed the chart.~Reviewed interim history and current functioning. Reviewed vital signs,~Labs/ Radiology~and current medications noted below. Continue current treatment with the changes noted in the dictated addendum note Assessment: Vital Signs: Vital Signs Date Time Temp Pulse Resp B/P (MAP) Pulse Ox O2 Delivery O2 Flow Rate FiO2 06/07/17 19:46 95 128/67 06/07/17 15:56 97.2 18 96 06/04/17 04:00 Room Air I&O Intake and Output 06/07/17 07:00 Intake Total 840 ml Balance 840 ml Intake Oral 840 ml Current Medications: Meds: Current Medications Lactated Ringer's 1,000 ml @ 500 mls/hr 1X ONCE IV Last administered on at 20:16; Start 06/03/17 at 18:45; Stop 06/03/17 at 20:44; Status DC Al Hydroxide/Mg Hydroxide (Mylanta Plus Xs) 15 ml PRN AFTMEALHC PRN PO DYSPEPSIA; Start 06/04/17 at 21:00 Magnesium Hydroxide (Milk Of Magnesia) 2,400 mg PRN QHS PRN PO CONSTIPATION 1ST CHOICE; Start 06/04/17 at 21:00 Duloxetine HCl (Cymbalta) 60 mg DAILY PO Last administered on 06/07/17at 09:01; Start 06/05/17 at 09:00 Lamotrigine (LaMICtal) 100 mg DAILY PO ; Start 06/05/17 at 09:00; Stop 06/05/17 at 18:50; Status DC Alprazolam (Xanax) 1 mg BID PO Last administered on 06/07/17at 19:47; Start 06/04 at 21:30 Atorvastatin Calcium (Lipitor) 20 mg QHS PO Last administered on 06/07/17at 19:46 ; Start 06/04/17 at 22:00 Prazosin HCl (Minipress) 1 mg QHS PO Last administered on 06/04/17at 21:45; Start 06/04/17 at 22:00; Stop 06/05/17 at 18:50; Status DC Trazodone HCl (Desyrel) 50 mg QHS PO Last administered on 06/04/17at 22:33; Start 06/04/17 at 23:00; Stop 06/05/17 at 18:50; Status DC Trazodone HCl (Desyrel) 50 mg PRN QHS PRN PO Insomnia; Start 06/04/17 at 22:30 ; Stop 06/05/17 at 18:50; Status DC Alprazolam (Xanax) 0.25 mg PRN Q2HR PRN PO ANXIETY / AGITATION; Start 06/04/17 at 22:30 Hydroxyzine Pamoate (Vistaril) 25 mg PRN Q2HR PRN PO Anxiety Last administered on 06/06/17at 04:58; Start 06/04/17 at 22:30 Aspirin (Aspirin Enteric Coated) 81 mg DAILY PO Last administered on 06/07/17at 09:05; Start 06/05/17 at 09:00 Diclofenac Sodium (Voltaren) 2 frantz PRN QID PRN TP PAIN; Start 06/05/17 at 07:45 Nystatin (Mycostatin) 1 frantz PRN TID PRN TP Yeast; Start 06/05/17 at 07:45 Sumatriptan Succinate (Imitrex) 50 mg PRN QID PRN PO MIGRAINE HEADACHE; Start 06/05/17 at 07:45 Clobetasol Propionate 1 frantz PRN QHS PRN TP ITCHING; Start 06/05/17 at 09:00 Lactobacillus Rhamnosus (Culturelle) 1 cap DAILY PO Last administered on at 09:02; Start 06/05/17 at 09:00 Multivitamins/ Calcium (Thera-M Plus) 1 tab DAILY PO Last administered on at 09:01; Start 06/05/17 at 09:00 Lamotrigine (LaMICtal) 150 mg DAILY PO Last administered on 06/07/17at 09:01; Start 06/06/17 at 09:00 Prazosin HCl (Minipress) 2 mg QHS PO Last administered on 06/05/17at 19:59; Start 06/05/17 at 21:00; Stop 06/06/17 at 19:21; Status DC Trazodone HCl (Desyrel) 25 mg PRN QHS PRN PO INSOMNIA; Start 06/05/17 at 19:00 Trazodone HCl (Desyrel) 25 mg QHS PO Last administered on 06/07/17 19:47; Start 06/05/17 at 21:00 Ibuprofen (Motrin) 600 mg PRN Q6HRS PRN PO PAIN Last administered on 06/07/17 09:33; Start 06/06/17 at 11:30 Lidocaine (Lidoderm) 1 patch DAILY TD Last administered on 06/07/17 09:34; Start 06/06/17 at 11:30 Miscellaneous (Lidoderm Patch Removal) 1 ea QHS MC Last administered on 19:43; Start 06/06/17 at 21:00 Prazosin HCl (Minipress) 3 mg QHS PO Last administered on 06/07/17 19:46; Start 06/06/17 at 21:00 Nystatin (Nystop) 1 frantz BID TP Last administered on 06/07/17 19:47; Start at 09:00 Nystatin (Nystop) 15 frantz STK-MED ONCE TP Last administered on 06/06/17 21:25; Start 06/06/17 at 21:25; Stop 06/06/17 at 21:26; Status DC Lidocaine (Lidoderm) 1 patch PRN DAILY PRN TD pain Last administered on 13:19; Start 06/07/17 at 13:00 Miscellaneous (Lidoderm Patch Removal) 1 ea QHS MC Last administered on 19:43; Start 06/07/17 at 21:00 Active Scripts Active Reported Voltaren (Diclofenac Sodium) 100 Gm Gel..gram. 2 Gm TP PRN QID PRN Multi-Day Plus Minerals Tablet (Multivitamin-Min/Iron/FA/Vit K) 1 Each Tablet 1 Tab PO DAILY Imitrex (Sumatriptan Succinate) 50 Mg Tablet 50 Mg PO PRN QID PRN Acidophilus Capsule (L. Acidophilus/Pectin, [place]) 1 Each Capsule 1 Cap PO DAILY Nystatin 15 Gm Cream..g. 1 Frantz TP PRN TID PRN Naratriptan Hcl 2.5 Mg Tablet 2.5 Mg PO PRN Q4HRS PRN Lamictal (Lamotrigine) 100 Mg Tablet 100 Mg PO DAILY Clobetasol Propionate 15 Gm Gel..gram. 1 Frantz TP PRN QHS PRN Aspir-Low (Aspirin) 81 Mg Tablet. 81 Mg PO DAILY Prazosin Hcl 1 Mg Capsule 1 Mg PO QHS Ibuprofen 600 Mg Tablet 600 Mg PO PRN Q6HRS PRN Cymbalta (Duloxetine Hcl) 60 Mg Capsule.dr 60 Mg PO DAILY Atorvastatin Calcium 20 Mg Tablet 20 Mg PO QHS Xanax (Alprazolam) 1 Mg Tablet 1 Mg PO BID I have reviewed the current psychotropics carefully including drug interactions. Risk benefit ratio favors no change other than as noted in my dictated progress note. Diagnosis: Problems: (1) Panic disorder with agoraphobia and severe panic attacks (2) Anxiety disorder (3) Impulse control disorder (4) Obsessive compulsive disorder (5) Post traumatic stress disorder (6) Major depressive disorder, recurrent episode ARVIND ARAIZA MD June 07, 2017 21:35
[2017-06-08] MEDS ORDERED: ALPR0.254 PO (02:40)
[2017-06-08] MEDS ORDERED: LIDO700A39 TD (02:43)
[2017-06-08] MEDS ORDERED: MAG355OR17 PO (02:44)
[2017-06-08] MEDS ORDERED: MAGN2400 PO (02:45)
[2017-06-08] MEDS ORDERED: NYST60PO TP (02:46)
[2017-06-08] MEDS ORDERED: [UNRECOGNIZED DRUG - OTHER] (02:47)
[2017-06-08] MEDS ORDERED: HYDR25CA75 PO (02:49)
[2017-06-08] MEDS ORDERED: TRAZ50TA15 PO ×2 (02:50→02:51)
[2017-06-08] MEDS ORDERED: LAMO150T2 PO (02:53)
--- NOTE | 2017-06-08 03:00 | PN ---
DATE: 06/06/2017 This is a late entry for 06/06/2017 covers elements not covered in my initial note. SUBJECTIVE: I met with the patient in the evening of 06/06/2017. The patient slept 6 hours previous evening, somewhat withdrawn, complains of having nightmares causing her not to sleep at night, complains of back and shoulder pain. Ambulates with a walker. REVIEW OF SYSTEMS: No CV, , pulmonary, eye system symptoms on review. MENTAL STATUS EXAM: Reasonably oriented, anxious. Speech coherent, abstraction fair, computation impaired, language function intact. Mood and affect remains depressed, anxious, labile, less so than before. LABORATORY DATA: Reviewed. IMPRESSION: Major depressive disorder with psychotic features, posttraumatic stress disorder, anxiety disorder, unspecified; bipolar II disorder. PLAN: Increase prazosin to 3 mg at bedtime. Maintain rest of the psychotropics unchanged including Lamictal, Cymbalta, Xanax. ARVIND ARAIZA MD DR: KIEL/jesus JOB#: [id number] / [id number]
[2017-06-08 06:36] VITALS: BP 112/59
[2017-06-08] MEDS: DULoxetine HCL 60 MG CAPSULE.DR PO SCH (08:55)
[2017-06-08] MEDS: lamoTRIgine 100 MG TABLET. PO SCH (08:56)
[2017-06-08] MEDS: IBUPROFEN 600 MG TABLET. PO PRN (08:56)
[2017-06-08] MEDS: LACTOBACILLUS RHAMNOSUS GG 1 CAPSULE. PO SCH (08:56)
[2017-06-08] MEDS: ASPIRIN ENTERIC COATED 81 MG TABLET.DR. PO SCH (08:56)
[2017-06-08] MEDS: MULTIVITAMIN with MINERAL TABLET. PO SCH (08:56)
[2017-06-08] MEDS: NYSTATIN TOPICAL POWDER 15GM BOTTLE. TP SCH (08:57)
[2017-06-08] MEDS: LIDOCAINE (700MG/PATCH) PATCH. TD SCH (08:57)
[2017-06-08] MEDS: ALPRAZolam 0.5 MG TABLET PO SCH (08:58)
--- NOTE | 2017-06-08 18:25 | PDOC ---
Exam Note: Gunner Note: Please also refer to the separate dictated note~for this date of service dictated separately.~Patient seen individually. Discussed the patient with Nursing staff reviewed the chart.~Reviewed interim history and current functioning. Reviewed vital signs,~Labs/ Radiology~and current medications noted below. Continue current treatment with the changes noted in the dictated addendum note Assessment: Vital Signs: Vital Signs Date Time Temp Pulse Resp B/P (MAP) Pulse Ox O2 Delivery O2 Flow Rate FiO2 06/08/17 06:36 97.8 91 20 112/59 (76) 95 06/04/17 04:00 Room Air I&O Intake and Output 06/08/17 07:00 Intake Total 1100 ml Balance 1100 ml Intake Oral 1100 ml Current Medications: Meds: Current Medications Lactated Ringer's 1,000 ml @ 500 mls/hr 1X ONCE IV Last administered on at 20:16; Start 06/03/17 at 18:45; Stop 06/03/17 at 20:44; Status DC Al Hydroxide/Mg Hydroxide (Mylanta Plus Xs) 15 ml PRN AFTMEALHC PRN PO DYSPEPSIA; Start 06/04/17 at 21:00; Stop 06/08/17 at 12:31; Status DC Magnesium Hydroxide (Milk Of Magnesia) 2,400 mg PRN QHS PRN PO CONSTIPATION 1ST CHOICE; Start 06/04/17 at 21:00; Stop 06/08/17 at 12:31; Status DC Duloxetine HCl (Cymbalta) 60 mg DAILY PO Last administered on 06/08/17at 08:55; Start 06/05/17 at 09:00; Stop 06/08/17 at 12:31; Status DC Lamotrigine (LaMICtal) 100 mg DAILY PO ; Start 06/05/17 at 09:00; Stop 06/05/17 at 18:50; Status DC Alprazolam (Xanax) 1 mg BID PO Last administered on 06/08/17at 08:58; Start 06/04 at 21:30; Stop 06/08/17 at 12:31; Status DC Atorvastatin Calcium (Lipitor) 20 mg QHS PO Last administered on 06/07/17at 19:46 ; Start 06/04/17 at 22:00; Stop 06/08/17 at 12:31; Status DC Prazosin HCl (Minipress) 1 mg QHS PO Last administered on 06/04/17at 21:45; Start 06/04/17 at 22:00; Stop 06/05/17 at 18:50; Status DC Trazodone HCl (Desyrel) 50 mg QHS PO Last administered on 06/04/17at 22:33; Start 06/04/17 at 23:00; Stop 06/05/17 at 18:50; Status DC Trazodone HCl (Desyrel) 50 mg PRN QHS PRN PO Insomnia; Start 06/04/17 at 22:30 ; Stop 06/05/17 at 18:50; Status DC Alprazolam (Xanax) 0.25 mg PRN Q2HR PRN PO ANXIETY / AGITATION; Start 06/04/17 at 22:30; Stop 06/08/17 at 12:31; Status DC Hydroxyzine Pamoate (Vistaril) 25 mg PRN Q2HR PRN PO Anxiety Last administered on 06/06/17at 04:58; Start 06/04/17 at 22:30; Stop 06/08/17 at 12:31; Status DC Aspirin (Aspirin Enteric Coated) 81 mg DAILY PO Last administered on 06/08/17at 08:56; Start 06/05/17 at 09:00; Stop 06/08/17 at 12:31; Status DC Diclofenac Sodium (Voltaren) 2 frantz PRN QID PRN TP PAIN; Start 06/05/17 at 07:45 ; Stop 06/08/17 at 12:31; Status DC Nystatin (Mycostatin) 1 frantz PRN TID PRN TP Yeast; Start 06/05/17 at 07:45; Stop 06/08/17 at 12:31; Status DC Sumatriptan Succinate (Imitrex) 50 mg PRN QID PRN PO MIGRAINE HEADACHE; Start 06/05/17 at 07:45; Stop 06/08/17 at 12:31; Status DC Clobetasol Propionate 1 frantz PRN QHS PRN TP ITCHING; Start 06/05/17 at 09:00; Stop 06/08/17 at 12:31; Status DC Lactobacillus Rhamnosus (Culturelle) 1 cap DAILY PO Last administered on at 08:56; Start 06/05/17 at 09:00; Stop 06/08/17 at 12:31; Status DC Multivitamins/ Calcium (Thera-M Plus) 1 tab DAILY PO Last administered on 08:56; Start 06/05/17 at 09:00; Stop 06/08/17 at 12:31; Status DC Lamotrigine (LaMICtal) 150 mg DAILY PO Last administered on 06/08/17 08:56; Start 06/06/17 at 09:00; Stop 06/08/17 at 12:31; Status DC Prazosin HCl (Minipress) 2 mg QHS PO Last administered on 06/05/17 19:59; Start 06/05/17 at 21:00; Stop 06/06/17 at 19:21; Status DC Trazodone HCl (Desyrel) 25 mg PRN QHS PRN PO INSOMNIA; Start 06/05/17 at 19:00 ; Stop 06/08/17 at 12:31; Status DC Trazodone HCl (Desyrel) 25 mg QHS PO Last administered on 06/07/17 19:47; Start 06/05/17 at 21:00; Stop 06/08/17 at 12:31; Status DC Ibuprofen (Motrin) 600 mg PRN Q6HRS PRN PO PAIN Last administered on 06/08/17 08:56; Start 06/06/17 at 11:30; Stop 06/08/17 at 12:31; Status DC Lidocaine (Lidoderm) 1 patch DAILY TD Last administered on 06/08/17 08:57; Start 06/06/17 at 11:30; Stop 06/08/17 at 12:31; Status DC Miscellaneous (Lidoderm Patch Removal) 1 ea QHS MC Last administered on 19:43; Start 06/06/17 at 21:00; Stop 06/08/17 at 12:31; Status DC Prazosin HCl (Minipress) 3 mg QHS PO Last administered on 06/07/17 19:46; Start 06/06/17 at 21:00; Stop 06/08/17 at 12:31; Status DC Nystatin (Nystop) 1 frantz BID TP Last administered on 06/08/17 08:57; Start 5/1/ 18 at 09:00; Stop 06/08/17 at 12:31; Status DC Nystatin (Nystop) 15 frantz STK-MED ONCE TP Last administered on 06/06/17at 21:25; Start 06/06/17 at 21:25; Stop 06/06/17 at 21:26; Status DC Lidocaine (Lidoderm) 1 patch PRN DAILY PRN TD pain Last administered on at 13:19; Start 06/07/17 at 13:00; Stop 06/08/17 at 12:31; Status DC Miscellaneous (Lidoderm Patch Removal) 1 ea QHS MC Last administered on at 19:43; Start 06/07/17 at 21:00; Stop 06/08/17 at 12:31; Status DC Active Scripts Active Reported Lamotrigine 150 Mg Tablet 150 Mg PO DAILY Trazodone Hcl 50 Mg Tablet 25 Mg PO QHS Trazodone Hcl 50 Mg Tablet 25 Mg PO PRN QHS PRN Hydroxyzine Pamoate 25 Mg Capsule 25 Mg PO PRN Q2HR PRN Nystop (Nystatin) 60 Gm Powder 60 Frantz TP BID Milk Of Magnesia (Magnesium Hydroxide) 2,400 Mg/10 Ml Oral.susp 2,400 Mg PO PRN QHS PRN Advanced Antacid Liquid (Mag Hydrox/Al Hydrox/Simeth) 355 Ml Oral.susp 15 Ml PO PRN AFTMEALHC PRN Lidocaine 1 Each Adh..patch 1 Patch TD DAILY Apply to lower back. Patches may remain in place for up to 12 hours in any 24 hour period. Alprazolam 0.25 Mg Tablet 0.25 Mg PO PRN Q2HR PRN Max daily dose of 3.5mg from all PRN and scheduled doses combined. Voltaren (Diclofenac Sodium) 100 Gm Gel..gram. 2 Gm TP PRN QID PRN Multi-Day Plus Minerals Tablet (Multivitamin-Min/Iron/FA/Vit K) 1 Each Tablet 1 Tab PO DAILY Imitrex (Sumatriptan Succinate) 50 Mg Tablet 50 Mg PO PRN QID PRN Acidophilus Capsule (L. Acidophilus/Pectin, [place]) 1 Each Capsule 1 Cap PO DAILY Nystatin 15 Gm Cream..g. 1 Frantz TP PRN TID PRN Clobetasol Propionate 15 Gm Gel..gram. 1 Frantz TP PRN QHS PRN Aspir-Low (Aspirin) 81 Mg Tablet.dr 81 Mg PO DAILY Prazosin Hcl 1 Mg Capsule 3 Mg PO QHS Ibuprofen 600 Mg Tablet 600 Mg PO PRN Q6HRS PRN Cymbalta (Duloxetine Hcl) 60 Mg Capsule.dr 60 Mg PO DAILY Atorvastatin Calcium 20 Mg Tablet 20 Mg PO QHS Xanax (Alprazolam) 1 Mg Tablet 1 Mg PO BID I have reviewed the current psychotropics carefully including drug interactions. Risk benefit ratio favors no change other than as noted in my dictated progress note. Diagnosis: Problems: (1) Major depressive disorder, recurrent episode (2) Post traumatic stress disorder (3) Obsessive compulsive disorder (4) Impulse control disorder (5) Anxiety disorder (6) Panic disorder with agoraphobia and severe panic attacks ARVIND ARAIZA MD June 08, 2017 18:24
--- NOTE | 2017-06-08 23:24 | PN ---
DATE: 06/08/2017 This late entry 06/07/2017 covers elements not covered in my initial note 06/07/2017. Met with the patient in the evening. The patient slept 6 hours, complains of some nightmares more confused in the evening, withdrawn to her room, complains of back pain. Ambulates with walker. No CV, , pulmonary, eye system symptoms on review. MENTAL STATUS EXAM: Oriented to herself and situation. Speech moderate latency, often responses monosyllabic. Abstraction fair, computation impaired, language function intact. Mood and affect somewhat dysphoric, depressed, but less psychotic. LABORATORY DATA: Reviewed. IMPRESSION: Unchanged from initial note. PLAN: Continue psychotropics mentioned in my initial note including prazosin 3 mg at bedtime for PTSD symptoms, Lamictal, Cymbalta, along with Xanax scheduled and p.r.n., and trazodone. ARVIND ARAIZA MD DR: KIEL/jesus JOB#: [id number] / [id number]
--- NOTE | 2017-06-10 21:04 | DS ---
DATE OF DISCHARGE: 06/08/2017 This is a late entry, 06/08/2017, to covers the elements not covered in my initial note, 06/08/2017. REASON FOR ADMISSION: Please refer to the admission history for details. Briefly, the patient is a 71-year-old female who presented at the Emergency Room at [facility] from [facility] where she resides. She presented with worsening symptoms of depression, anxiety, crying spells. She is fearful, had suicidal ideation, admitted to having outer body experiences of killing herself. She was refusing all the half-way facility therapies afforded to her at the facility. She had failed outpatient psychiatric interventions. She presented to the ER and was in the Emergency Room for almost 24 hours while attempts were made to secure a placement for her on an inpatient psychiatry unit. According to the family's wishes; however, no other facilities had open beds and she was then admitted to the Inpatient Geriatric Psychiatry Unit on our facility for stabilization. SIGNIFICANT FINDINGS AND CLINICAL COURSE: Following admission, the patient was seen daily individually by myself. She does have a history of bipolar 2 disorder and was continued on Lamictal, which was adjusted to 150 mg a day and seemed to respond additionally to a combination of Cymbalta 60 mg daily. She had symptoms of PTSD and prazosin was adjusted to 3 mg at bedtime, Xanax, maintained 1 mg b.i.d., plus 0.25 mg q.2 hours p.r.n., max 3.5 mg in 24 hours from all sources with the plan to taper this in due course when she was stabilized. She is also on Atarax and trazodone p.r.n. Gradually, mood appeared to improve. She was less depressed, anxious, less panic and outer body experiences were much improved. She denied active suicidal ideation, was quite insistent on returning back to the facility and discharged on 06/08/2017. CONDITION AT DISCHARGE: Improved. REVIEW OF SYSTEMS: Prior to discharge, no CV, , pulmonary, eye system symptoms on review. Gait unsteady with a walker. MENTAL STATUS EXAM: Reasonably oriented. Speech coherent, abstraction fair, computation impaired, and language function intact. Mood and affect was improved. No suicidal ideation at discharge. FINAL DIAGNOSES: Major depressive disorder with psychotic features in partial remission. History of posttraumatic stress disorder, panic disorder, anxiety disorder, unspecified. Rest unchanged from admission. DISCHARGE MEDICATIONS: Please refer to the MRAD. DISCHARGE INSTRUCTIONS: Outpatient psychiatric and medical followup at the half-way. Time for discharge, management greater than 30 minutes. ARVIND ARAIZA MD DR: KIEL/jesus JOB#: [id number] / [id number]
== END 2017-06-08 12:05 | disposition home or self-care (01) | DRG 885 ==
LOC: ER 18:39 → EEVIPCON 18:39 → ER 06-04 19:40 → GEROPSY 06-04 19:54
PROVIDERS: ADMIT Psychiatry & Neurology Psychiatry; ATTEND Psychiatry & Neurology Psychiatry
DX: F33.3 Major depressive disorder, recurrent, severe with psychotic symptoms (principal); I11.0 Hypertensive heart disease with heart failure; I50.9 Heart failure, unspecified; R45.851 Suicidal ideations; E86.0 Dehydration; E78.5 Hyperlipidemia, unspecified; G25.81 Restless legs syndrome; F63.9 Impulse disorder, unspecified; F40.01 Agoraphobia with panic disorder; F41.1 Generalized anxiety disorder; F42.9 Obsessive-compulsive disorder, unspecified; F43.10 Post-traumatic stress disorder, unspecified; X58.XXXA Exposure to other specified factors, initial encounter; Y93.89 Activity, other specified; Y92.89 Other specified places as the place of occurrence of the external cause; Y99.8 Other external cause status; Z86.73 Personal history of transient ischemic attack (TIA), and cerebral infarction without residual deficits; Z88.1 Allergy status to other antibiotic agents; Z91.040 Latex allergy status; Z88.5 Allergy status to narcotic agent; Z88.8 Allergy status to other drugs, medicaments and biological substances; Z91.048 Other nonmedicinal substance allergy status; Z79.82 Long term (current) use of aspirin; Z79.899 Other long term (current) drug therapy
CPT/HCPCS: 36415; 70450; 71045; 80048; 80061; 80307; 81001; 82306; 82553; 82607; 83036; 83540; 83550; 83735; 83880; 84436; 84443; 84480; 84484; 85025; 85610; 85730; 86593; 87086; 93005; 96360; 96361; G0480; J7120; Q0177; 97110; 97530; 99285-25; G0479

== ENCOUNTER → 2018-01-17 | Outpatient (CLI) | payer MEDICARE ==
[~2018-01-17] MED LIST: ALPR0.254 PO; ALPR1TAB2 PO; ASPI81TA50 PO; ATOR20TA58 PO; CLOB15GE TP; DICL100G18 TP; DULO60CA6 PO; HYDR25CA75 PO; IBUP600T16 PO; L. A1CAP12 PO; LAMO100T5 PO; LAMO150T2 PO; LIDO700A39 TD; MAG355OR17 PO; MAGN2400 PO; MULT-681 PO; NARA2.5T PO; NYST15CR TP; NYST60PO TP; PRAZ1CAP2 PO; SUMA50TA3 PO; TRAZ-85 PO; [UNRECOGNIZED DRUG - OTHER]
--- NOTE | 2018-01-18 14:12 | RAD ---
DATE: January 17, 2018 EXAM: DIGITAL SCREEN BILAT W/CAD HISTORY: Screening study. COMPARISON: October 06, 2015 This study was interpreted with the benefit of Computerized Aided Detection (CAD). FINDINGS: Breast Density: FATTY The breast parenchyma is primarily fatty replaced. Breast parenchyma level density A.. There are no dominant suspicious masses, suspicious microcalcifications or evidence of architectural distortion. IMPRESSION: No mammographic indicators for malignancy. BI-RADS CATEGORY: 1 NEGATIVE RECOMMENDED FOLLOW-UP: 12M 12 MONTH FOLLOW-UP PQRS compliance statement: Patient information was entered into a reminder system with a target due date January 18, 2019 for the next mammogram. Mammography is a sensitive method for finding small breast cancers, but it does not detect them all and is not a substitute for careful clinical examination. A negative mammogram does not negate a clinically suspicious finding and should not result in delay in biopsying a clinically suspicious abnormality. "Our facility is accredited by the [employer] Mammography Program." The patient's breast density may affect the ability of mammography to detect breast cancer. There are 4 categories of breast density, A, B, C and D. Breast density A means that most of the breast tissue is replaced with adipose tissue and therefore is not dense. Breast density B means that the breast tissue is mildly dense and scattered. Breast density C means that the breast tissue is heterogeneously dense. Breast density D means that the breast tissue is very dense. Breast densities especially C and D may decrease the sensitivity of mammography to detect breast cancer. Therefore, the patient may benefit from 3-D breast mammography (3D breast tomography) as a part of their screening mammogram. Insurance may or may not pay for this additional imaging. The patient's breast density based on today's mammogram is category A.
== END | disposition home or self-care (01) ==
LOC: MAMMO 13:03
PROVIDERS: ATTEND Physician Assistant Medical
DX: Z12.31 Encounter for screening mammogram for malignant neoplasm of breast (principal)
CPT/HCPCS: 77067

== ENCOUNTER 2018-08-27 19:38 | Observation (INO) | payer MEDICARE ==
[~2018-08-27] VITALS: Ht 160 cm; Wt 88.0 kg
[~2018-08-27 19:38] MED LIST changes: +LIDO700A21 TD; -LIDO700A39 TD; +TRAZ-120 PO; -TRAZ-85 PO
--- NOTE | 2018-08-27 19:50 | ED.ADGEN ---
Past History Past Medical History: Angina, Anxiety, Depression, UTI, Other Past Surgical History: Appendectomy, Hysterectomy, Other Alcohol Use: None Drug Use: None Adult General Chief Complaint Chief Complaint ".. I ve had three falls in the last couple days.. the one tonight was really hard... My dog 'Glenn'.. willow jumped down in front of me.. and I got tripped up....my hips and butt and low back are hurting... ". " would not have fallen.. except .. I ve been feeling willow weak.. and dizzy.." HPI HPI Patient is a 72 year old female who presents with above hx and complaints of f alling after being tripped by her dog Glenn. Pt. however has fallen two other times the past two days. Pt. states she fell other two times because of weakness. Pt. has hx of some complaints of chest pain periodically and dizziness. Pt. denies any change in her medications. Patient has history of depression, mood swings, anxiety, hypertension, hyperlipidemia, gait disorder, PTSD, bipolar, panic disorder, migraines, insomnia, and deconditioning. Pt. has had prior admit at [place] 06/04/17 for Depression on [facility]. Patient currently on Alprazolam 1 mg bid, ASA 81, Atorvastatin 20, Calcium 600 + D, Duloxetine bid 60mg, Ibuprofen prn, Lamotrigine 150 , and a Migraine Relief tab. ? prn. Pt. in past normally follows with Dr. Juan. Review of Systems Review of Systems Constitutional: Denies fever or chills [] Eyes: Denies change in visual acuity, redness, or eye pain [] HENT: Denies nasal congestion or sore throat [] Respiratory: Denies cough or shortness of breath [] Cardiovascular: No additional information not addressed in HPI [] GI: Denies abdominal pain, nausea, vomiting, bloody stools or diarrhea [] : Denies dysuria or hematuria [] Musculoskeletal: Denies back pain or joint pain []Complaints of bilateral hip and low back pain after trip on her dog and fall tonight. Complaints of generalized weakness this past 2 weeks. Integument: Denies rash or skin lesions [] Neurologic: Denies headache, focal weakness or sensory changes [] Endocrine: Denies polyuria or polydipsia [] All other systems were reviewed and found to be within normal limits, except as documented in this note. Family History Family History Non- contributory Current Medications Current Medications Current Medications Medications (Trade) Dose Ordered Sig/Shahnaz Start Time Stop Time Status Last Admin Dose Admin Lactated Ringer's 1,000 ml @ 100 mls/hr Q10H 08/27/18 20:00 08/28/18 05:59 08/27/18 20:35 100 MLS/HR Allergies Allergies Allergies Coded Allergies Type Severity Reaction Last Updated Verified acetaminophen Allergy Intermediate Unknown 06/06/17 Yes adhesive Allergy Intermediate Unknown 06/06/17 Yes azithromycin Allergy Intermediate Unknown 06/06/17 Yes hydrocodone Allergy Intermediate Unknown 06/06/17 Yes latex Allergy Intermediate Unknown 06/06/17 Yes nortriptyline Allergy Intermediate Unknown 06/06/17 Yes olanzapine Allergy Intermediate Unknown 06/06/17 Yes quetiapine Allergy Intermediate Unknown 06/06/17 Yes tolmetin Allergy Intermediate Unknown 06/06/17 Yes Physical Exam Physical Exam Constitutional: mild distress, non-toxic appearance. [] HENT: Normocephalic, atraumatic, bilateral external ears normal, oropharynx moist, no oral exudates, nose normal. [] Eyes: PERRLA, EOMI, conjunctiva normal, no discharge. Glasses Neck: Normal range of motion, no tenderness, supple, no stridor. [] Cardiovascular:Heart rate regular rhythm, no murmur [, PMI to Lt. . Lungs & Thorax: Bilateral breath sounds equal at apexes on auscultation [] Abdomen: Bowel sounds normal, soft, no tenderness, no masses, no pulsatile masses. Obese. Old surgery scars. Skin: Warm, dry, no erythema, no rash. [] Back: Para lumbar tenderness, no CVA tenderness. [] Extremities: bilateral hip tenderness, no cyanosis, no clubbing, ROM intact, trace ankle edema. [] Use a cane or walker because chronic unsteady gait. Neurologic: Alert and oriented X 3, moves all ext. on request, has distal sensory. Pt denies any new focal deficits. Psychologic: Affect anxious, judgement normal, mood normal. [] Current Patient Data Vital Signs Vital Signs Date Time Temp Pulse Resp B/P (MAP) Pulse Ox O2 Delivery O2 Flow Rate FiO2 08/27/18 22:30 76 18 140/70 (93) 97 Room Air 08/27/18 19:38 97.7 Lab Results Laboratory Tests Test 08/27/18 20:05 08/27/18 20:15 Urine Collection Type Unknown Urine Color Yellow Urine Clarity Hazy Urine pH 6.0 Urine Specific [place] 1.020 Urine Protein Neg (NEG-TRACE) Urine Glucose (UA) Neg mg/dL (NEG) Urine Ketones (Stick) Neg mg/dL (NEG) Urine Blood Neg (NEG) Urine Nitrite Neg (NEG) Urine Bilirubin Neg (NEG) Urine Urobilinogen Dipstick 1 mg/dL (0.2 mg/dL) Urine Leukocyte Esterase Mod (NEG) Urine RBC 0 /HPF (0-2) Urine WBC 11-20 /HPF (0-4) Urine Squamous Epithelial Cells Occ /LPF Urine Bacteria 0 /HPF (0-FEW) Urine Opiates Screen Neg (NEG) Urine Methadone Screen Neg (NEG) Urine Barbiturates Neg (NEG) Urine Phencyclidine Screen Neg (NEG) Urine Amphetamine/Methamphetamine Neg (NEG) Urine Benzodiazepines Screen Pos (NEG) Urine Cocaine Screen Neg (NEG) Urine Cannabinoids Screen Neg (NEG) Urine Ethyl Alcohol Neg (NEG) White Blood Count 10.5 x10^3/uL (4.0-11.0) Red Blood Count 4.55 x10^6/uL (3.50-5.40) Hemoglobin 12.4 g/dL (12.0-15.5) Hematocrit 38.3 % (36.0-47.0) Mean Corpuscular Volume 84 fL (79-100) Mean Corpuscular Hemoglobin 27 pg (25-35) Mean Corpuscular Hemoglobin Concent 32 g/dL (31-37) Red Cell Distribution Width 15.8 % (11.5-14.5) H Platelet Count 333 x10^3/uL (140-400) Neutrophils (%) (Auto) 68 % (31-73) Lymphocytes (%) (Auto) 21 % (24-48) L Monocytes (%) (Auto) 7 % (0-9) Eosinophils (%) (Auto) 3 % (0-3) Basophils (%) (Auto) 1 % (0-3) Neutrophils # (Auto) 7.2 x10^3uL (1.8-7.7) Lymphocytes # (Auto) 2.2 x10^3/uL (1.0-4.8) Monocytes # (Auto) 0.7 x10^3/uL (0.0-1.1) Eosinophils # (Auto) 0.4 x10^3/uL (0.0-0.7) Basophils # (Auto) 0.1 x10^3/uL (0.0-0.2) Erythrocyte Sedimentation Rate 61 (0-25) H Prothrombin Time 9.3 SEC (9.4-11.4) L Prothrombin Time INR 0.9 (0.9-1.1) PTT 26 SEC (23-33) D-Dimer (Dorys) 1.01 mg/L (0.00-0.50) H Sodium Level 144 mmol/L (136-145) Potassium Level 3.1 mmol/L (3.5-5.1) L Chloride Level 105 mmol/L (98-107) Carbon Dioxide Level 30 mmol/L (21-32) Anion Gap 9 (6-14) Blood Urea Nitrogen 17 mg/dL (7-20) Creatinine 1.1 mg/dL (0.6-1.0) H Estimated GFR (Cockcroft-Gault) 49.0 Glucose Level 89 mg/dL (70-99) Calcium Level 9.8 mg/dL (8.5-10.1) Magnesium Level 2.3 mg/dL (1.8-2.4) Total Bilirubin 0.5 mg/dL (0.2-1.0) Direct Bilirubin 0.1 mg/dL (0.0-0.2) Aspartate Amino Transferase (AST) 17 U/L (15-37) Alanine Aminotransferase (ALT) 17 U/L (14-59) Alkaline Phosphatase 147 U/L (46-116) H Creatine Kinase 66 U/L (26-192) Troponin I Quantitative < 0.017 ng/mL (0-0.055) TU-Ldt-I-Type Natriuretic Peptide 92 pg/mL (0-124) Total Protein 6.7 g/dL (6.4-8.2) Albumin 3.4 g/dL (3.4-5.0) Lipase 57 U/L (73-393) L EKG EKG My interpretation of EKG shows a sinus rhythm at 75 ft./m. Left axis. Nonspecific anterior septal changes. No findings acute STEMI of contralateral changes.[] Radiology/Procedures Radiology/Procedures [address] [address] IMAGING REPORT Signed PATIENT: BECKI CLEARY ACCOUNT: [id number] : 1945 LOCATION: ER AGE: 72 SEX: F EXAM STATUS: REG ER ORD. PHYSICIAN: SHRUTHI RENEE MD REASON: Fall PROCEDURE: CT HEAD AND CERVICAL SPINE WO Examination: CT HEAD AND CERVICAL SPINE WO History: Fall, pain Comparison/Correlation: 06/03/2017 CT head without contrast Findings: Axial images of the head and cervical spine were obtained without contrast. Sagittal and coronal reformatted images of the cervical spine were obtained. Atrophy is present. Chronic ischemic changes white matter noted. Right, midline shift, or mass effect. Globes and optic nerves are unremarkable. Visualized paranasal sinuses are unremarkable. Atlantoaxial joint degenerative remodeling is present. Moderate C5-6 and significant C6/7 disc space narrowing are present. Mild spurring is noted at these levels. Bony encroachment on the neural foramina is notable on the right at these levels and of moderate extent on the left. Nerve root compression on the right at these levels is suspected. Soft tissues of neck are unremarkable. Impression: No intracranial hemorrhage. Degenerative changes of the mid to lower cervical spine. No fracture or malalignment. RS Compliance Statement: One or more of the following individualized dose reduction techniques were utilized for this examination: 1. Automated exposure control 2. Adjustment of the mA and/or kV according to patient size 3. Use of iterative reconstruction technique Electronically signed by: Noah Potts MD (08/27/2018 10:04 PM) [facility] [place] [address] [address] IMAGING REPORT Signed PATIENT: BECKI CLEARY ACCOUNT: [id number] : 1945 LOCATION: ER AGE: 72 SEX: F EXAM STATUS: REG ER ORD. PHYSICIAN: SHRUTHI RENEE MD REASON: Fall PROCEDURE: CT HEAD AND CERVICAL SPINE WO Examination: CT HEAD AND CERVICAL SPINE WO History: Fall, pain Comparison/Correlation: 06/03/2017 CT head without contrast Findings: Axial images of the head and cervical spine were obtained without contrast. Sagittal and coronal reformatted images of the cervical spine were obtained. Atrophy is present. Chronic ischemic changes white matter noted. Right, midline shift, or mass effect. Globes and optic nerves are unremarkable. Visualized paranasal sinuses are unremarkable. Atlantoaxial joint degenerative remodeling is present. Moderate C5-6 and significant C6/7 disc space narrowing are present. Mild spurring is noted at these levels. Bony encroachment on the neural foramina is notable on the right at these levels and of moderate extent on the left. Nerve root compression on the right at these levels is suspected. Soft tissues of neck are unremarkable. Impression: No intracranial hemorrhage. Degenerative changes of the mid to lower cervical spine. No fracture or malalignment. RS Compliance Statement: One or more of the following individualized dose reduction techniques were utilized for this examination: 1. Automated exposure control 2. Adjustment of the mA and/or kV according to patient size 3. Use of iterative reconstruction technique Electronically signed by: Noah Potts MD (08/27/2018 10:04 PM) [facility] DICTATED AND SIGNED BY: NOAH POTTS MD DATE: 08/27/182203 CC: SHRUTHI RENEE MD; MOE WILBURN ~ DICTATED AND SIGNED BY: NOAH POTTS MD DATE: 08/27/182203 CC: SHRUTHI RENEE MD; MOE WILBURN ~ [][address] [address] IMAGING REPORT Signed PATIENT: BECKI CLEARY ACCOUNT: [id number] : 1945 LOCATION: ER AGE: 72 SEX: F EXAM STATUS: REG ER ORD. PHYSICIAN: SHRUTHI RENEE MD REASON: Pain after fall PROCEDURE: CT LUMBAR SPINE WO CONTRAST Examination: CT LUMBAR SPINE WO CONTRAST, CT PELVIS WO CONTRAST History: Pain, fall Comparison/Correlation: None Findings: Axial images of the lumbar spine and pelvis were obtained. Sagittal and coronal reformatted images were provided. Alignment of the lumbar spine is normal. No acute fracture or bony destruction. Facet joint degenerative changes of the low lumbar spine are present. Vertebral body heights and disc spaces are adequate. Sacroiliac and hip joints are symmetric and unremarkable. Soft tissues about the pelvis are unremarkable. Soft tissues about the pelvis are unremarkable. Impression: No fracture or malalignment. PQRS Compliance Statement: One or more of the following individualized dose reduction techniques were utilized for this examination: 1. Automated exposure control 2. Adjustment of the mA and/or kV according to patient size 3. Use of iterative reconstruction technique Electronically signed by: Noah Potts MD (08/27/2018 10:08 PM) [facility] DICTATED AND SIGNED BY: NOAH POTTS MD DATE: 08/27/182207 CC: SHRUTHI RENEE MD; MOE WILBURN ~ Course & Med Decision Making Course & Med Decision Making Pertinent Labs and Imaging studies reviewed. (See chart for details) Pt. admitted to Dr. Vazquez for further eval. and tx. [] Final Impression Final Impression 1. Falling[] 2. Weakness 3. Hypokalemia 3.1 4. Elevated Creat l.l 5. Elevated D-dimer 1.01 6. UTI Dragon Disclaimer Dragon Disclaimer This electronic medical record was generated, in whole or in part, using a voice recognition dictation system. Discharge Summary Visit Information Final Diagnosis Problems Medical Problems: (1) Falling Status: Acute Brief Hospital Course Allergies Allergies Coded Allergies Type Severity Reaction Last Updated Verified acetaminophen Allergy Intermediate Unknown 06/06/17 Yes adhesive Allergy Intermediate Unknown 06/06/17 Yes azithromycin Allergy Intermediate Unknown 06/06/17 Yes hydrocodone Allergy Intermediate Unknown 06/06/17 Yes latex Allergy Intermediate Unknown 06/06/17 Yes nortriptyline Allergy Intermediate Unknown 06/06/17 Yes olanzapine Allergy Intermediate Unknown 06/06/17 Yes quetiapine Allergy Intermediate Unknown 06/06/17 Yes tolmetin Allergy Intermediate Unknown 06/06/17 Yes Vital Signs Vital Signs Date Time Temp Pulse Resp B/P (MAP) Pulse Ox O2 Delivery O2 Flow Rate FiO2 08/27/18 22:30 76 18 140/70 (93) 97 Room Air 08/27/18 19:38 97.7 Lab Results Laboratory Tests Test 08/27/18 20:08/27/18 20:15 Urine Collection Type Unknown Urine Color Yellow Urine Clarity Hazy Urine pH 6.0 Urine Specific [place] 1.020 Urine Protein Neg (NEG-TRACE) Urine Glucose (UA) Neg mg/dL (NEG) Urine Ketones (Stick) Neg mg/dL (NEG) Urine Blood Neg (NEG) Urine Nitrite Neg (NEG) Urine Bilirubin Neg (NEG) Urine Urobilinogen Dipstick 1 mg/dL (0.2 mg/dL) Urine Leukocyte Esterase Mod (NEG) Urine RBC 0 /HPF (0-2) Urine WBC 11-20 /HPF (0-4) Urine Squamous Epithelial Cells Occ /LPF Urine Bacteria 0 /HPF (0-FEW) Urine Opiates Screen Neg (NEG) Urine Methadone Screen Neg (NEG) Urine Barbiturates Neg (NEG) Urine Phencyclidine Screen Neg (NEG) Urine Amphetamine/Methamphetamine Neg (NEG) Urine Benzodiazepines Screen Pos (NEG) Urine Cocaine Screen Neg (NEG) Urine Cannabinoids Screen Neg (NEG) Urine Ethyl Alcohol Neg (NEG) White Blood Count 10.5 x10^3/uL (4.0-11.0) Red Blood Count 4.55 x10^6/uL (3.50-5.40) Hemoglobin 12.4 g/dL (12.0-15.5) Hematocrit 38.3 % (36.0-47.0) Mean Corpuscular Volume 84 fL (79-100) Mean Corpuscular Hemoglobin 27 pg (25-35) Mean Corpuscular Hemoglobin Concent 32 g/dL (31-37) Red Cell Distribution Width 15.8 % (11.5-14.5) Platelet Count 333 x10^3/uL (140-400) Neutrophils (%) (Auto) 68 % (31-73) Lymphocytes (%) (Auto) 21 % (24-48) Monocytes (%) (Auto) 7 % (0-9) Eosinophils (%) (Auto) 3 % (0-3) Basophils (%) (Auto) 1 % (0-3) Neutrophils # (Auto) 7.2 x10^3uL (1.8-7.7) Lymphocytes # (Auto) 2.2 x10^3/uL (1.0-4.8) Monocytes # (Auto) 0.7 x10^3/uL (0.0-1.1) Eosinophils # (Auto) 0.4 x10^3/uL (0.0-0.7) Basophils # (Auto) 0.1 x10^3/uL (0.0-0.2) Erythrocyte Sedimentation Rate 61 (0-25) Prothrombin Time 9.3 SEC (9.4-11.4) Prothromb Time International Ratio 0.9 (0.9-1.1) Activated Partial Thromboplast Time 26 SEC (23-33) D-Dimer (Dorys) 1.01 mg/L (0.00-0.50) Sodium Level 144 mmol/L (136-145) Potassium Level 3.1 mmol/L (3.5-5.1) Chloride Level 105 mmol/L (98-107) Carbon Dioxide Level 30 mmol/L (21-32) Anion Gap 9 (6-14) Blood Urea Nitrogen 17 mg/dL (7-20) Creatinine 1.1 mg/dL (0.6-1.0) Estimated GFR (Cockcroft-Gault) 49.0 Glucose Level 89 mg/dL (70-99) Calcium Level 9.8 mg/dL (8.5-10.1) Magnesium Level 2.3 mg/dL (1.8-2.4) Total Bilirubin 0.5 mg/dL (0.2-1.0) Direct Bilirubin 0.1 mg/dL (0.0-0.2) Aspartate Amino Transf (AST/SGOT) 17 U/L (15-37) Alanine Aminotransferase (ALT/SGPT) 17 U/L (14-59) Alkaline Phosphatase 147 U/L (46-116) Creatine Kinase 66 U/L (26-192) Troponin I Quantitative < 0.017 ng/mL (0-0.055) SU-Nbe-Q-Type Natriuretic Peptide 92 pg/mL (0-124) Total Protein 6.7 g/dL (6.4-8.2) Albumin 3.4 g/dL (3.4-5.0) Lipase 57 U/L (73-393) Brief Hospital Course Ms. Cleary is a 72 old female who presented with hx falls at home x 3 in past [address] Vazquez for further eval . and tx. Discharge Information Condition at Discharge: Improved, Stable Dischare Medications Current Medications Lactated Ringer's 1,000 ml @ 100 mls/hr Q10H IV Last administered on 08/27/18at 20:35; Admin Dose 100 MLS/HR; Start 08/27/18 at 20:00; Stop 08/28/18 at 05:59 Active Scripts Active Reported Lamotrigine 150 Mg Tablet 150 Mg PO DAILY Trazodone Hcl 50 Mg Tablet 25 Mg PO QHS Trazodone Hcl 50 Mg Tablet 25 Mg PO PRN QHS PRN Hydroxyzine Pamoate 25 Mg Capsule 25 Mg PO PRN Q2HR PRN Nystop (Nystatin) 60 Gm Powder 60 Frantz TP BID Milk Of Magnesia (Magnesium Hydroxide) 2,400 Mg/10 Ml Oral.susp 2,400 Mg PO PRN QHS PRN Advanced Antacid Liquid (Mag Hydrox/Al Hydrox/Simeth) 355 Ml Oral.susp 15 Ml PO PRN AFTMEALHC PRN Lidocaine 1 Each Adh..patch 1 Patch TD DAILY Apply to lower back. Patches may remain in place for up to 12 hours in any 24 hour period. Alprazolam 0.25 Mg Tablet 0.25 Mg PO PRN Q2HR PRN Max daily dose of 3.5mg from all PRN and scheduled doses combined. Voltaren (Diclofenac Sodium) 100 Gm Gel..gram. 2 Gm TP PRN QID PRN Multi-Day Plus Minerals Tablet (Multivitamin-Min/Iron/FA/Vit K) 1 Each Tablet 1 Tab PO DAILY Imitrex (Sumatriptan Succinate) 50 Mg Tablet 50 Mg PO PRN QID PRN Acidophilus Capsule (L. Acidophilus/Pectin, [place]) 1 Each Capsule 1 Cap PO DAILY Nystatin 15 Gm Cream..g. 1 Frantz TP PRN TID PRN Clobetasol Propionate 15 Gm Gel..gram. 1 Rfantz TP PRN QHS PRN Aspir-Low (Aspirin) 81 Mg Tablet. 81 Mg PO DAILY Prazosin Hcl 1 Mg Capsule 3 Mg PO QHS Ibuprofen 600 Mg Tablet 600 Mg PO PRN Q6HRS PRN Cymbalta (Duloxetine Hcl) 60 Mg Capsule.dr 60 Mg PO DAILY Atorvastatin Calcium 20 Mg Tablet 20 Mg PO QHS Xanax (Alprazolam) 1 Mg Tablet 1 Mg PO BID Crissy Disclaimer This chart was dictated in whole or in part using Voice Recognition software in a busy, high-work load, and often noisy Emergency Department environment. It may contain unintended and wholly unrecognized errors or omissions. SHRUTHI RENEE MD Aug 27, 2018 19:50
[2018-08-27] MEDS ORDERED: IV RINGERS SOLUTION,LACTATED 1,000 ML IV SCH (20:00)
[2018-08-27 20:40] LABS: BASO # 0.1 x10^3/uL (0.0-0.2); BASO % 1 % (0-3); EOS # 0.4 x10^3/uL (0.0-0.7); EOS % 3 % (0-3); HEMATOCRIT 38.3 % (36.0-47.0); HEMOGLOBIN 12.4 g/dL (12.0-15.5); LYMPH # 2.2 x10^3/uL (1.0-4.8); LYMPH % 21 % (24-48); MEAN CORPUSCULAR HEMOGLOBIN 27 pg (25-35); MEAN CORPUSCULAR HGB CONC 32 g/dL (31-37); MEAN CORPUSCULAR VOLUME 84 fL (79-100); MONO # 0.7 x10^3/uL (0.0-1.1); MONO % 7 % (0-9); NEUT # 7.2 x10^3uL (1.8-7.7); NEUT % 68 % (31-73); PLATELET COUNT 333 x10^3/uL (140-400); RED BLOOD COUNT 4.55 x10^6/uL (3.50-5.40); RED CELL DISTRIBUTION WIDTH 15.8 % (11.5-14.5); WHITE BLOOD COUNT 10.5 x10^3/uL (4.0-11.0)
[2018-08-27 21:15] LABS: BACTERIA,URINE 0 /HPF (0-FEW); BILIRUBIN,URINE NEG (NEG); CLARITY,URINE HAZY; COLOR,URINE YELLOW; GLUCOSE,URINE NEG (NEG); NITRITE,URINE NEG (NEG); RBC,URINE 0 /HPF (0-2); SQUAMOUS EPITHELIAL CELL,UR OCC /LPF; UROBILINOGEN,URINE 1 mg/dL (0.2 mg/dL)
[2018-08-27 21:17] LABS: AMPHETAMINE/METHAMPHETAMINE NEG (NEG); BARBITURATES NEG (NEG); BENZODIAZEPINES POS (NEG); CANNABINOIDS NEG (NEG); COCAINE NEG (NEG); METHADONE NEG (NEG); OPIATES NEG (NEG); PHENCYCLIDINE NEG (NEG)
[2018-08-27 21:26] LABS: ALBUMIN 3.4 g/dL (3.4-5.0); CALCIUM 9.8 mg/dL (8.5-10.1); CREATININE 1.1 mg/dL (0.6-1.0); TOTAL BILIRUBIN 0.5 mg/dL (0.2-1.0); TOTAL PROTEIN 6.7 g/dL (6.4-8.2)
[2018-08-27 21:27] LABS: MAGNESIUM 2.3 mg/dL (1.8-2.4)
[2018-08-27 21:31] LABS: POTASSIUM 3.1 mmol/L (3.5-5.1)
[2018-08-27 21:32] LABS: DIRECT BILIRUBIN 0.1 mg/dL (0.0-0.2)
[2018-08-27 21:46] LABS: SEDIMENTATION RATE 61 (0-25)
--- NOTE | 2018-08-27 22:07 | RAD ---
Examination: CT HEAD AND CERVICAL SPINE WO History: Fall, pain Comparison/Correlation: 06/03/2017 CT head without contrast Findings: Axial images of the head and cervical spine were obtained without contrast. Sagittal and coronal reformatted images of the cervical spine were obtained. Atrophy is present. Chronic ischemic changes white matter noted. Right, midline shift, or mass effect. Globes and optic nerves are unremarkable. Visualized paranasal sinuses are unremarkable. Atlantoaxial joint degenerative remodeling is present. Moderate C5-6 and significant C6/7 disc space narrowing are present. Mild spurring is noted at these levels. Bony encroachment on the neural foramina is notable on the right at these levels and of moderate extent on the left. Nerve root compression on the right at these levels is suspected. Soft tissues of neck are unremarkable. Impression: No intracranial hemorrhage. Degenerative changes of the mid to lower cervical spine. No fracture or malalignment. RS Compliance Statement: One or more of the following individualized dose reduction techniques were utilized for this examination: 1. Automated exposure control 2. Adjustment of the mA and/or kV according to patient size 3. Use of iterative reconstruction technique Electronically signed by: Guillermo Sandoval MD (08/27/2018 10:04 PM) [facility]
--- NOTE | 2018-08-27 22:11 | RAD ---
Examination: CT LUMBAR SPINE WO CONTRAST, CT PELVIS WO CONTRAST History: Pain, fall Comparison/Correlation: None Findings: Axial images of the lumbar spine and pelvis were obtained. Sagittal and coronal reformatted images were provided. Alignment of the lumbar spine is normal. No acute fracture or bony destruction. Facet joint degenerative changes of the low lumbar spine are present. Vertebral body heights and disc spaces are adequate. Sacroiliac and hip joints are symmetric and unremarkable. Soft tissues about the pelvis are unremarkable. Soft tissues about the pelvis are unremarkable. Impression: No fracture or malalignment. PQRS Compliance Statement: One or more of the following individualized dose reduction techniques were utilized for this examination: 1. Automated exposure control 2. Adjustment of the mA and/or kV according to patient size 3. Use of iterative reconstruction technique Electronically signed by: Guillermo Sandoval MD (08/27/2018 10:08 PM) [facility]
[2018-08-27] MEDS ORDERED: ONDANSETRON PF 4 MG/2 ML VIAL. IV PRN (23:15)
[2018-08-27] MEDS ORDERED: ACETAMINOPHEN 325 MG TABLET PO PRN (23:15)
[2018-08-27] MEDS ORDERED: IV NORMAL SALINE 50ML 50 ML ONE (23:20)
[2018-08-27] MEDS ORDERED: cefTRIAXone SODIUM 1 GM VIAL ONE (23:21)
[2018-08-27] MEDS ORDERED: POTASSIUM CHLORIDE 20 MEQ TABLET.ER. PO ONE (23:30)
[2018-08-27] MEDS ORDERED: ENOXAPARIN ** NOTE DOSE ** SYRINGE SQ ONE (23:45)
[2018-08-28] MEDS ORDERED: ANTI-COAG MONITOR BY PHARMACY. MC PRN (00:15)
--- NOTE | 2018-08-28 01:00 | NUR ---
The patient, BECKI CLEARY, 72 y/o, F admitted by ROULA RUCKER MD, to room ICU6 was given written information regarding hospital policies, unit procedures and contact persons. Valuables were checked and left with the patient. Pt placed on telemetry. Vital signs were checked. Medication list reviewed and medical history discussed. Physical and social needs assessed. Will continue to monitor.
[2018-08-28 01:30] VITALS: BP 149/76
[2018-08-28 06:18] LABS: BASO % 1 % (0-3); EOS # 0.4 x10^3/uL (0.0-0.7); EOS % 4 % (0-3); HEMATOCRIT 33.8 % (36.0-47.0); HEMOGLOBIN 11.1 g/dL (12.0-15.5); LYMPH # 2.8 x10^3/uL (1.0-4.8); LYMPH % 28 % (24-48); MEAN CORPUSCULAR HEMOGLOBIN 27 pg (25-35); MEAN CORPUSCULAR HGB CONC 33 g/dL (31-37); MEAN CORPUSCULAR VOLUME 84 fL (79-100); MONO # 0.6 x10^3/uL (0.0-1.1); MONO % 6 % (0-9); NEUT # 6.2 x10^3uL (1.8-7.7); NEUT % 62 % (31-73); PLATELET COUNT 273 x10^3/uL (140-400); RED BLOOD COUNT 4.04 x10^6/uL (3.50-5.40); RED CELL DISTRIBUTION WIDTH 15.6 % (11.5-14.5)
--- NOTE | 2018-08-28 06:32 | EKG ---
[address] [address] Test Date: 2018-08-27 Test Time: 19:51:48 Pat Name: BECKI CLEARY Department: Room: ICU06 1 Gender: F [employer] Director: SHONA : 1945 Requested By: SHRUTHI RENEE Order Number: [id number] Reading MD: Joni Egan MD Measurements Intervals [place] Rate: 75 P: 53 VT: 180 QRS: -4 QRSD: 88 T: 79 QT: 404 QTc: 454 Interpretive Statements SINUS RHYTHM NON-SPECIFIC ST/T CHANGES Electronically Signed On 08-29-2018 12:44:11 CDT by Joni Egan MD
[2018-08-28 06:39] LABS: CALCIUM 9.2 mg/dL (8.5-10.1); CREATININE 0.9 mg/dL (0.6-1.0); GFR 61.7; POTASSIUM 3.7 mmol/L (3.5-5.1)
[2018-08-28 06:47] VITALS: BP 147/72
--- NOTE | 2018-08-28 06:55 | PDOC2 ---
MERRILL MELO BUSINESS ACCOUNT SPECIALIST 08/28/18 0655: CARDIAC CONSULT DATE OF CONSULT Date Of Consult DATE: 08/28/18 TIME: 06:48 REASON FOR CONSULT Reason for Consult dysrhythmia REFERRING PHYSICIAN Referring Physician Dr. Wang SOURCE Source: Chart review, Patient HPI History of Present Illness This is a 72 to female who presented secondary to fall and weakness. Patient reports she was out walking her dog. The dog jumped over the curb and got away from her. She subsequently tripped, falling to the ground. Had two additional falls in the last couple of days. Report legs gave out each time, causing fall. Denies any dizziness/lightheadedness, chest pain, diaphoresis, palpitations, shortness of breath, STYLES, or nausea/vomiting. No arrhythmias noted overnight on tele. EKG shows SR with t wave inversion in lead V1-V3 and aVL. PAST MEDICAL HISTORY Cardiovascular: HTN, hyperipidemia Pulmonary: No pertinent hx GI: No pertinent hx Heme/Onc: No pertinent hx Hepatobiliary: No pertinent hx Psych: Anxiety, Bipolar, Depression, Other (PTSD) Musculoskeletal: No pertinent hx Rheumatologic: No pertinent hx Infectious disease: No pertinent hx ENT: No pertinent hx Renal/: No pertinent hx Endocrine: No pertinent hx Dermatology: No pertinent hx PAST SURGICAL HISTORY Past Surgical History: Appendectomy, Hysterectomy, Tonsillectomy FAMILY HISTORY Family History: Cancer, Heart Disease (mom CHF) SOCIAL HISTORY Smoke: No ALCOHOL: none Drugs: None Lives: Alone CURRENT MEDICATIONS Current Medications Current Medications Lactated Ringer's 1,000 ml @ 100 mls/hr Q10H IV Last administered on 08/27/18at 20:35; Start 08/27/18 at 20:00; Stop 08/28/18 at 05:59; Status DC Potassium Chloride (Klor-Con) 40 meq 1X ONCE PO Last administered on 08/27/18at 23:26; Start 08/27/18 at 23:30; Stop 08/27/18 at 23:31; Status DC Ceftriaxone Sodium 1 gm/ Sodium Chloride 50 ml @ 100 mls/hr 1X ONCE IV Last administered on 08/27/18at 23:26; Start 08/27/18 at 23:30; Stop 08/27/18 at 23:59; Status DC Sodium Chloride 50 ml @ As Directed STK-MED ONCE .ROUTE ; Start 08/27/18 at 23:20; Stop 08/27/18 at 23:21; Status DC Ceftriaxone Sodium (Rocephin) 1 gm STK-MED ONCE .ROUTE ; Start 08/27/18 at 23:21; Stop 08/27/18 at 23:22; Status DC Ondansetron HCl (Zofran) 4 mg PRN Q4HRS PRN IV NAUSEA/VOMITING; Start 08/27/18 at 23:15; Stop 08/28/18 at 23:14 Acetaminophen (Tylenol) 650 mg PRN Q4HRS PRN PO FEVER; Start 08/27/18 at 23:15; Stop 08/28/18 at 23:14; Status UNV Ceftriaxone Sodium 1 gm/ Sodium Chloride 50 ml @ 100 mls/hr QHS IV ; Start 08/28/18 at 21:00 Aspirin (Children'S Aspirin) 81 mg DAILYWBKFT PO ; Start 08/28/18 at 08:00 Enoxaparin Sodium (Lovenox 80mg Syringe) 80 mg 1X ONCE SQ Last administered on 08/27/18at 23:33; Start 08/27/18 at 23:45; Stop 08/27/18 at 23:46; Status DC Enoxaparin Sodium (Lovenox 100mg Syringe) 90 mg Q12HR SQ ; Start 08/28/18 at 09:00 Info (Anti-Coagulation Monitoring By Pharmacy) 1 each PRN DAILY PRN MC SEE COMMENTS; Start 08/28/18 at 00:15 Active Scripts Active Reported Lamotrigine 150 Mg Tablet 150 Mg PO DAILY Trazodone Hcl 50 Mg Tablet 25 Mg PO QHS Trazodone Hcl 50 Mg Tablet 25 Mg PO PRN QHS PRN Hydroxyzine Pamoate 25 Mg Capsule 25 Mg PO PRN Q2HR PRN Nystop (Nystatin) 60 Gm Powder 60 Frantz TP BID Milk Of Magnesia (Magnesium Hydroxide) 2,400 Mg/10 Ml Oral.susp 2,400 Mg PO PRN QHS PRN Advanced Antacid Liquid (Mag Hydrox/Al Hydrox/Simeth) 355 Ml Oral.susp 15 Ml PO PRN AFTMEALHC PRN Lidocaine PATCH (Lidocaine) 1 Each Adh..patch 1 Patch TD DAILY Apply to lower back. Patches may remain in place for up to 12 hours in any 24 hour period. Alprazolam 0.25 Mg Tablet 0.25 Mg PO PRN Q2HR PRN Max daily dose of 3.5mg from all PRN and scheduled doses combined. Voltaren (Diclofenac Sodium) 100 Gm Gel..gram. 2 Gm TP PRN QID PRN Multi-Day Plus Minerals Tablet (Multivitamin-Min/Iron/FA/Vit K) 1 Each Tablet 1 Tab PO DAILY Imitrex (Sumatriptan Succinate) 50 Mg Tablet 50 Mg PO PRN QID PRN Acidophilus Capsule (L. Acidophilus/Pectin, [place]) 1 Each Capsule 1 Cap PO DAILY Nystatin 15 Gm Cream..g. 1 Frantz TP PRN TID PRN Clobetasol Propionate 15 Gm Gel..gram. 1 Frantz TP PRN QHS PRN Aspir-Low (Aspirin) 81 Mg Tablet.dr 81 Mg PO DAILY Prazosin Hcl 1 Mg Capsule 3 Mg PO QHS Ibuprofen 600 Mg Tablet 600 Mg PO PRN Q6HRS PRN Cymbalta (Duloxetine Hcl) 60 Mg Capsule.dr 60 Mg PO DAILY Atorvastatin Calcium 20 Mg Tablet 20 Mg PO QHS Xanax (Alprazolam) 1 Mg Tablet 1 Mg PO BID ALLERGIES Allergies: Coded Allergies: acetaminophen (Verified Allergy, Intermediate, Unknown, 06/06/17) adhesive (Verified Allergy, Intermediate, Unknown, 06/06/17) azithromycin (Verified Allergy, Intermediate, Unknown, 06/06/17) hydrocodone (Verified Allergy, Intermediate, Unknown, 06/06/17) latex (Verified Allergy, Intermediate, Unknown, 06/06/17) nortriptyline (Verified Allergy, Intermediate, Unknown, 06/06/17) olanzapine (Verified Allergy, Intermediate, Unknown, 06/06/17) quetiapine (Verified Allergy, Intermediate, Unknown, 06/06/17) tolmetin (Verified Allergy, Intermediate, Unknown, 06/06/17) ROS Review of Systems 14 point ROS conducted with pertinent positives noted above in HPI. PHYSICAL EXAM General: Alert, Oriented X3, Cooperative, No acute distress HEENT: Atraumatic, Mucous membr. moist/pink Lungs: Clear to auscultation, Normal air movement Heart: Regular rate, Normal S1, Normal S2, No murmurs Abdomen: Soft, No tenderness Extremities: No edema, Normal pulses Skin: No rashes, No breakdown Neuro: Normal speech, Sensation intact Psych/Mental Status: Mental status NL, Other (flat affect) MUSCULOSKELETAL: No deformity VITALS Vital Signs Vital Signs Date Time Temp Pulse Resp B/P (MAP) Pulse Ox O2 Delivery O2 Flow Rate FiO2 08/28/18 06:47 97.5 79 20 147/72 (97) 92 Room Air LABS LABS Laboratory Tests Test 08/27/18 20:05 08/27/18 20:15 08/28/18 05:44 Urine Collection Type Unknown Urine Color Yellow Urine Clarity Hazy Urine pH 6.0 Urine Specific [place] 1.020 Urine Protein Neg (NEG-TRACE) Urine Glucose (UA) Neg mg/dL (NEG) Urine Ketones (Stick) Neg mg/dL (NEG) Urine Blood Neg (NEG) Urine Nitrite Neg (NEG) Urine Bilirubin Neg (NEG) Urine Urobilinogen Dipstick 1 mg/dL (0.2 mg/dL) Urine Leukocyte Esterase Mod (NEG) Urine RBC 0 /HPF (0-2) Urine WBC 11-20 /HPF (0-4) Urine Squamous Epithelial Cells Occ /LPF Urine Bacteria 0 /HPF (0-FEW) Urine Opiates Screen Neg (NEG) Urine Methadone Screen Neg (NEG) Urine Barbiturates Neg (NEG) Urine Phencyclidine Screen Neg (NEG) Urine Amphetamine/Methamphetamine Neg (NEG) Urine Benzodiazepines Screen Pos (NEG) Urine Cocaine Screen Neg (NEG) Urine Cannabinoids Screen Neg (NEG) Urine Ethyl Alcohol Neg (NEG) White Blood Count 10.5 x10^3/uL (4.0-11.0) 10.0 x10^3/uL (4.0-11.0) Red Blood Count 4.55 x10^6/uL (3.50-5.40) 4.04 x10^6/uL (3.50-5.40) Hemoglobin 12.4 g/dL (12.0-15.5) 11.1 g/dL (12.0-15.5) Hematocrit 38.3 % (36.0-47.0) 33.8 % (36.0-47.0) Mean Corpuscular Volume 84 fL (79-100) 84 fL (79-100) Mean Corpuscular Hemoglobin 27 pg (25-35) 27 pg (25-35) Mean Corpuscular Hemoglobin Concent 32 g/dL (31-37) 33 g/dL (31-37) Red Cell Distribution Width 15.8 % (11.5-14.5) 15.6 % (11.5-14.5) Platelet Count 333 x10^3/uL (140-400) 273 x10^3/uL (140-400) Neutrophils (%) (Auto) 68 % (31-73) 62 % (31-73) Lymphocytes (%) (Auto) 21 % (24-48) 28 % (24-48) Monocytes (%) (Auto) 7 % (0-9) 6 % (0-9) Eosinophils (%) (Auto) 3 % (0-3) 4 % (0-3) Basophils (%) (Auto) 1 % (0-3) 1 % (0-3) Neutrophils # (Auto) 7.2 x10^3uL (1.8-7.7) 6.2 x10^3uL (1.8-7.7) Lymphocytes # (Auto) 2.2 x10^3/uL (1.0-4.8) 2.8 x10^3/uL (1.0-4.8) Monocytes # (Auto) 0.7 x10^3/uL (0.0-1.1) 0.6 x10^3/uL (0.0-1.1) Eosinophils # (Auto) 0.4 x10^3/uL (0.0-0.7) 0.4 x10^3/uL (0.0-0.7) Basophils # (Auto) 0.1 x10^3/uL (0.0-0.2) 0.0 x10^3/uL (0.0-0.2) Erythrocyte Sedimentation Rate 61 (0-25) Prothrombin Time 9.3 SEC (9.4-11.4) Prothromb Time International Ratio 0.9 (0.9-1.1) Activated Partial Thromboplast Time 26 SEC (23-33) D-Dimer (Dorys) 1.01 mg/L (0.00-0.50) Sodium Level 144 mmol/L (136-145) 143 mmol/L (136-145) Potassium Level 3.1 mmol/L (3.5-5.1) 3.7 mmol/L (3.5-5.1) Chloride Level 105 mmol/L (98-107) 106 mmol/L (98-107) Carbon Dioxide Level 30 mmol/L (21-32) 29 mmol/L (21-32) Anion Gap 9 (6-14) 8 (6-14) Blood Urea Nitrogen 17 mg/dL (7-20) 15 mg/dL (7-20) Creatinine 1.1 mg/dL (0.6-1.0) 0.9 mg/dL (0.6-1.0) Estimated GFR (Cockcroft-Gault) 49.0 61.7 Glucose Level 89 mg/dL (70-99) 103 mg/dL (70-99) Calcium Level 9.8 mg/dL (8.5-10.1) 9.2 mg/dL (8.5-10.1) Magnesium Level 2.3 mg/dL (1.8-2.4) Total Bilirubin 0.5 mg/dL (0.2-1.0) Direct Bilirubin 0.1 mg/dL (0.0-0.2) Aspartate Amino Transf (AST/SGOT) 17 U/L (15-37) Alanine Aminotransferase (ALT/SGPT) 17 U/L (14-59) Alkaline Phosphatase 147 U/L (46-116) Creatine Kinase 66 U/L (26-192) Troponin I Quantitative < 0.017 ng/mL (0-0.055) FX-Cdd-T-Type Natriuretic Peptide 92 pg/mL (0-124) Total Protein 6.7 g/dL (6.4-8.2) Albumin 3.4 g/dL (3.4-5.0) Lipase 57 U/L (73-393) ASSESSMENT/PLAN Assessment/Plan 1. Weakness, falls 2. Hypertension; controlled 3. Hyperlipidemia; statin therapy 4. Anxiety, depression 5. Hypokalemia; replaced 6. NARCISO; improved with IVFs Recommendations Pt/OT Monitor tele Echo to assess LV systolic function Consider outpatient ischemic evaluation. Supportive care STEPHANIE MCCLELLAND MD 08/29/18 1249: CARDIAC CONSULT ASSESSMENT/PLAN Assessment/Plan Pt. seen and examined. Agree with above SENIOR BRANCH MANAGER note. Late entry for 08/28/2018 72 y.o woman with falls, which appear to be related to MSK issues. No obvious cardiac pathology noted. EKG, echo wnl. Labs unremarkable. Ok to DC from CV standpoint. Thanks LORIE,MERRILL BUSINESS ACCOUNT SPECIALIST Aug 28, 2018 06:55 STEPHANIE MCCLELLAND MD Aug 29, 2018 12:49
--- NOTE | 2018-08-28 08:58 | RAD ---
Examination: ACUTE ABDOMEN SERIES History: Fall, bruising to the abdomen Comparison/Correlation: 06/03/2017 portable chest x-ray exam, lumbar spine CT exam 08/27/2018 Findings: Frontal views of the chest, upright view of the abdomen, and supine view of the abdomen were provided. Heart size and pulmonary vasculature are normal. No infiltrate or pleural effusion. No pneumothorax. Interstitial thickening of the retrocardiac region is present. Fluid levels are present within nondistended bowel. No suspicious abdominal calcifications. Bony structures are unremarkable. Impression: Retrocardiac linear scarring or atelectasis is similar compared to 06/03/2017. No bowel obstruction. Electronically signed by: Guillermo Sandoval MD (08/28/2018 8:55 AM) [id number]
--- NOTE | 2018-08-28 09:15 | RAD ---
CLINICAL HISTORY: Elevated d-dimer COMPARISON: None available. TECHNIQUE: Ultrasound evaluation of the bilateral lower extremities was performed from the groin to the upper calf with urena scale, spectral and color doppler evaluation. FINDINGS: The bilateral common femoral vein, and femoral vein, including the saphenous-femoral junction are normal in appearance. Color and spectral Doppler evaluation demonstrates normal spontaneous flow, augmentation and phasicity. The bilateral popliteal vein and visualized calf veins also demonstrate normal compressibility and flow. IMPRESSION: No evidence for bilateral lower extremity DVT Electronically signed by: Dion Terrazas MD (08/28/2018 9:12 AM) [facility]
--- NOTE | 2018-08-28 09:16 | RAD ---
UE VENOUS DUPLEX BILATERAL UPPER EXTREMITIES Left upper extremity venous duplex was performed using B-mode, color-flow, and spectral Doppler. Indication: Elevated d-dimer Findings: The bilateral internal jugular, subclavian, axillary, brachial, basilic, and cephalic veins were assessed for patency. All the visualized vessels were found to be compressible and demonstrated phasic, competent to flow with normal augmentation. Of note some this distal veins were too small to evaluate with Doppler techniques. Impression: Negative study for acute DVT of the bilateral upper extremity. Electronically signed by: Dion Terrazas MD (08/28/2018 9:14 AM) [facility]
--- NOTE | 2018-08-28 10:08 | NUR ---
Patient is alert and oriented. States she was discharged from [facility] a while ago and had 15 falls right when she got home. Reports having falls the last few days, 2 episodes from weak legs, the 3rd from tripping on her dog. Pt reports her legs feel weak often and this is why she falls. Attempting to help patient get out of bed this morning, pt stated she was only able to move legs to the side of the bed and then needed help. At that time ultrasound came in to test so patient placed back in bed. Pt needed to be scooted up in bed and was able to do this all on her own. Pt is will to go to a rehab but not willing to consider assisted living or [facility]cf. [facility] and [facility] Garcia to check on patients medications as patient had some that were changed. It was discovered that patient was supposed to be taking lamictal but hasn't filled it since 07/18/18, and it was a 30 [address] supply. Will notify Dr Morel of this. [facility] [place] on board for discharge planning. Will continue to monitor.
[2018-08-28] MEDS ORDERED: DICLOFENAC SODIUM 1% TOPICAL GEL 100GM TUBE. TP PRN (11:00)
--- NOTE | 2018-08-28 11:31 | HP ---
ADMIT DATE: 08/27/2018 HISTORY OF PRESENT ILLNESS: The patient is a 72-year-old female patient who presented to the Emergency Room with a complaint of falling after being tripped by her dog. She also has fallen two other times in the past 2 days. The patient states that she fell because of weakness and she said that she has difficulty standing from sitting position, difficulty walking in a straight line and she has to veer to the right or left or fall forward. The patient has history of some complaint of chest pain periodically and dizziness. Denied any change in her medication, although apparently her Lamictal was discontinued on 07/18/2018 on account of skin infection treated with Keflex and her doctor advised her not to take them together. PAST MEDICAL HISTORY: Significant for major depressive disorder for which she was actually admitted to [facility], hypertension, hyperlipidemia and gait disorder, posttraumatic stress disorder, bipolar, panic disorder, migraine headache, insomnia and deconditioning. She was actually admitted here on 06/04/2018 to [facility] for depression. PAST SURGICAL HISTORY: Significant for bilateral cataract extraction, appendectomy, total abdominal hysterectomy, bilateral salpingo-oophorectomy, tonsillectomy, right wrist surgery. ALLERGIES: She is allergic to TYLENOL, ADHESIVES, AZITHROMYCIN, HYDROCODONE LATEX, NORTRIPTYLINE, OLANZAPINE, QUETIAPINE, AND TOLMETIN. MEDICATIONS: She is currently on following medications: She is on atorvastatin 20 mg once a day, aspirin 81 mg once a day, diclofenac sodium for Voltaren gel 2 g topically 4 times a day, ibuprofen 600 mg every 6 hours, lamotrigine 150 mg daily, duloxetine 60 mg twice a day, alprazolam 1 mg twice a day, nystatin cream applied topically 3 times a day, nystatin powder applied topically 3 times a day and clobetasol propionate gel applied topically at bedtime and Lidoderm patch applied topically for back pain. She is also on multivitamin with mineral 1 tablet once a day. FAMILY HISTORY: She has 2 sisters younger, both have hyperlipidemia. SOCIAL HISTORY: She is , has 2 daughters and one son. She does not smoke, drink alcohol or recreational drugs. 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 REVIEW OF SYSTEMS: The patient has bilateral cataract extraction, but denied any glaucoma or macular degeneration. Denied any earache, tinnitus and does have difficulty hearing, does not have any hearing aids. Denied any stuffy nose, nosebleed or postnasal drip. Denied any sore throat, sore tongue, toothache, hoarseness of voice or difficulty swallowing. Denied not any nausea, vomiting, diarrhea or constipation. Denied any hematemesis, melena or hematochezia. Denied any dysuria, frequency or hematuria. Denied any chest pain, shortness of breath, orthopnea or paroxysmal nocturnal dyspnea. Denied any cough, phlegm or hemoptysis. Denied any chills, rigors or fever. Did complain of difficulty standing, walking in a straight line tendency to veer towards the left or right side or falling forward, although she has never been diagnosed with Parkinson's disease. PHYSICAL EXAMINATION: GENERAL: On arrival to the Emergency Room, she looked well and was clearly in no apparent respiratory distress. No pallor, jaundice, cyanosis, or thyromegaly. No jugular venous distension. No limb edema. VITAL SIGNS: Her heart rate was 77, blood pressure was 139/72, temperature was 97.7, respiratory rate was 18 and oxygen saturation was 96%. HEAD, EYES, EARS, NOSE, AND THROAT: Showed normocephalic, atraumatic. NECK: Supple. HEART: Showed normal first and second heart sounds. No gallop, rub or murmur. CHEST: Clear to auscultation. No crepitation or rhonchi. ABDOMEN: Distended, soft, nontender. NEUROLOGIC: She is awake, alert. All her cranial nerves intact. EXTREMITIES: She moves extremities without difficulty; however, she has definitely marked proximal myopathy. She has very hard difficulty standing from sitting position and walking and she said that she has difficulty walking in a straight line, tends to veer to right or left, or fall forward. LABORATORY DATA: On arrival showed a white cell count of 10,500, hemoglobin 12.4, hematocrit 38, MCV 84, platelet count of 333,000. Her chemistry showed a serum sodium 144, potassium 3.1, chloride 105, bicarbonate 30, anion gap of 9, BUN 17, creatinine 1.1, estimated GFR was 49, glucose was 89, calcium was 9.8, magnesium was 2.3. Total bilirubin, AST, ALT were normal. Alkaline phosphatase slightly elevated. Total protein was 6.7, albumin was 3.4. Her prothrombin time was 9.3, INR 0.9, aPTT was 26 and D-dimer was high at 1.01. Urinalysis showed the urine was yellow, hazy with a pH of 6, specific gravity of 1.020. The urine was negative for protein, glucose, ketones, blood, nitrite, and leukocyte esterase. There was small amount of leukocyte esterase, no rbc's, 11-20 wbc's, and no bacteria and tox screen was positive for benzodiazepine. She has had CT scan of the pelvis, which basically showed that the alignment of the lumbar spine is normal, no acute fracture or bony destruction. Facet joint degenerative changes of the lower lumbar spine are present. Vertebral body heights and disk spaces are adequate. Sacroiliac and hip joints are symmetric and unremarkable. Soft tissues about the pelvis are unremarkable. CT scan of the head and cervical spine showed that there is no intracranial hemorrhage. Degenerative changes in the mid to lower cervical spine, no fracture or malalignment and she had acute abdomen series, which basically showed retrocardiac linear scarring atelectasis, similar compared to previous x-rays. Her venous Doppler ultrasounds of both upper and lower extremities were negative for deep vein thrombosis. ASSESSMENT AND PLAN: In summary, this is a 72-year-old female patient who came in with recurrent falls. She has also marked proximal myopathy, hypokalemia, and dehydration and elevated D-dimer. She has leukocyturia, but I am not really sure about urinary tract infection. The venous Doppler ultrasounds of both upper and lower extremities were negative for DVT. Probably, we need to do a CT scan with CT angio of the chest to rule out pulmonary embolism. Given her marked proximal myopathy and unsteady gait, I will consult Dr. Araujo to evaluate for possible Parkinson's disease or other possible cause of severe proximal myopathy and unsteady gait. NATALY CASTELLANOS MD DR: ANDI/jesus JOB#: [id number] / [id number]
[2018-08-28] MEDS ORDERED: IOHEXOL 350 MG/ML 100 ML VIAL. IV ONE ×2 (11:45→12:00)
[2018-08-28 11:53] VITALS: BP 165/67
[2018-08-28] MEDS: ENOXAPARIN ** NOTE DOSE ** SYRINGE SQ SCH ×2 (12:33→20:52)
[2018-08-28] MEDS: ASPIRIN 81 MG TAB.CHEW PO SCH (12:33)
--- NOTE | 2018-08-28 12:41 | NUR ---
Pt reports she was not to take her lamictal per doctors orders because she was on antibiotics. Dr Morel aware.
--- NOTE | 2018-08-28 12:41 | RAD ---
EXAM: CT chest with contrast - pulmonary embolus protocol CLINICAL HISTORY: Recurrent falls with elevated d-dimer. COMPARISON: None. TECHNIQUE: CT of the chest following the administration of intravenous contrast during the pulmonary arterial phase. Axial, coronal and sagittal reformatted images were generated including MIP images. ---PQRS compliance statement - One or more of the following individualized dose reduction techniques were utilized for this study: 1. Automated exposure control 2. Adjustment of the mA and/or kV according to patient size 3. Use of iterative reconstruction technique--- FINDINGS: CHEST: Diagnostic quality: Adequate. Pulmonary emboli: None seen Right heart strain: None Pulmonary arteries: Normal in caliber. Moderate ectasia of ascending aorta. Heart is not enlarged. No pericardial effusion. No pleural effusion or pneumothorax. No thoracic lymphadenopathy. Dependent opacities bilaterally likely atelectasis or scarring. Visualized Upper abdomen: Upper abdomen is grossly unremarkable. Bones: Evaluation of bony structures limited given MIP reconstructions. IMPRESSION: 1. No evidence for acute pulmonary embolus. 2. Minimal dependent opacities in the lower lobes likely atelectasis or scarring. Electronically signed by: Dion Terrazas MD (08/28/2018 12:38 PM) [facility]
--- NOTE | 2018-08-28 12:44 | NUR ---
Consult called into Dr Araujo with neurology.
[2018-08-28 13:56] LABS: THYROID STIM HORMONE (TSH) 1.686 uIU/mL (0.358-3.740)
[2018-08-28 16:08] VITALS: BP 164/77
--- NOTE | 2018-08-28 18:46 | CARD ---
MR#: [id number] Date of Study: 08/28/2018 Ordering Physician: MERRILL MELO, Referring Physician: ROULA RUCKER, Tech: Nancy Quintero APPROVED REPORT EXAM: Two-dimensional and M-mode echocardiogram with Doppler and color Doppler. Other Information Quality : AverageHR: 77bpm Technically limited study due to body habitus. INDICATION Dizziness and Vertigo 2D DIMENSIONS RVDd2.2 (2.9-3.5cm)Left Atrium(2D)3.5 (1.6-4.0cm) IVSd1.0 (0.7-1.1cm)Aortic Root(2D)2.6 (2.0-3.7cm) LVDd4.7 (3.9-5.9cm)LVOT Diameter1.9 (1.8-2.4cm) PWd1.0 (0.7-1.1cm)LVDs2.9 (2.5-4.0cm) FS (%) 39.4 %SV72.3 ml LVEF(%)69.9 (>50%) Aortic Valve AoV Peak Eddie.154.0cm/sAoV VTI31.6cm AO Peak GR.9.5mmHgLVOT Peak Eddie.99.9cm/s LVOT VTI 21.98cmAO Mean GR.5mmHg MAY (VMAX)1.90ub2PMX (VTI)1.90cm2 Mitral Valve MV E Ohygumuz11.1cm/sMV DECEL JTFU596ox MV A Tmpsvlkj28.9cm/sE/A Ratio0.9 Pulmonary Valve PV Peak Sgvwgujg451.9cm/sPV Peak Grad.5mmHg Tricuspid Valve TR P. Fvfcsmoa912dy/sRAP NHWAVTSF0kbJc TR Peak Gr.70fpQhDOAO35eqGp Pulmonary Vein S1 Foxjsmsa08.1cm/sD2 Aoyimlec78.8cm/s LEFT VENTRICLE The left ventricle is normal size. There is normal left ventricular wall thickness. The left ventricu lar systolic function is normal and the ejection fraction is within normal range. The Ejection Fracti on is >55%. There is normal LV segmental wall motion. Transmitral Doppler flow pattern is Grade I-abn ormal relaxation pattern. RIGHT VENTRICLE The right ventricle is normal size. There is normal right ventricular wall thickness. The right ventr icular systolic function is normal. ATRIA The left atrium size is normal. The right atrium size is normal. The interatrial septum is intact wit h no evidence for an atrial septal defect or patent foramen ovale as noted on 2-D or Doppler imaging. AORTIC VALVE The aortic valve is normal in structure and function. Doppler and Color Flow revealed trace aortic re gurgitation. There is no significant aortic valvular stenosis. MITRAL VALVE The mitral valve is normal in structure and function. There is no evidence of mitral valve prolapse. There is no mitral valve stenosis. Doppler and Color Flow revealed no mitral valve regurgitation note d. TRICUSPID VALVE The tricuspid valve is normal in structure and function. Doppler and Color Flow revealed no tricuspid valve regurgitation noted with an estimated PAP of 21 mmHg. There is no tricuspid valve stenosis. PULMONIC VALVE The pulmonic valve is not well visualized. Doppler and Color Flow revealed no pulmonic valvular regur gitation. There is no pulmonic valvular stenosis. GREAT VESSELS The aortic root is normal in size. The IVC is normal in size and collapses >50% with inspiration. PERICARDIAL EFFUSION There is no evidence of significant pericardial effusion. Critical Notification Critical Value: No <Conclusion> The left ventricular systolic function is normal and the ejection fraction is within normal range. Th e Ejection Fraction is >55%. There is normal LV segmental wall motion. Signed by : Joni Egan, Electronically Approved : 08/28/2018 18:45:28
[2018-08-28 19:53] VITALS: BP 166/72
[2018-08-28] MEDS: ALPRAZolam 0.5 MG TABLET PO SCH (20:50)
[2018-08-28] MEDS: ATORVASTATIN CALCIUM 20 MG TABLET PO SCH (20:50)
[2018-08-28] MEDS: NYSTATIN TOPICAL POWDER 15GM BOTTLE. TP SCH (20:51)
[2018-08-28] MEDS: DULoxetine HCL 60 MG CAPSULE.DR PO SCH (20:51)
[2018-08-28] MEDS ORDERED: CLOBETASOL EMOLLIENT 0.05% TOPICAL CREAM 15GM TUBE. TP PRN (21:00)
[2018-08-28] MEDS ORDERED: NYSTATIN TOPICAL POWDER 15GM BOTTLE. TP SCH (21:00)
[2018-08-28 23:14] VITALS: BP 157/65
[2018-08-29] MEDS: IBUPROFEN 600 MG TABLET. PO PRN (00:06)
--- NOTE | 2018-08-29 00:18 | PN ---
DATE: 08/28/2018 SUBJECTIVE: The patient was admitted yesterday with recurrent episodes of falling. The patient complained that she has difficulty standing from a sitting position and difficulty walking in a straight line. She tends to veer towards right or left or fall forward. She also complained of low back pain after she has fallen on her back. PHYSICAL EXAMINATION: GENERAL: When I examined her this morning, she looked pale, no jaundice, cyanosis, or thyromegaly. No jugular venous distension. No limb edema. VITAL SIGNS: Her heart rate was 80, blood pressure was 139/70, temperature was 97.7, respiratory rate was 18 and oxygen saturation was 98% on room air. HEAD, EYES, EARS, NOSE AND THROAT: Showed normocephalic, atraumatic. NECK: Supple. HEART: Showed normal first and second heart sounds. No gallop, rub or murmur. CHEST: Clear to auscultation. No crepitation or rhonchi. ABDOMEN: Distended, soft, nontender. No guarding or rigidity. No organomegaly. All hernial orifices intact. Bowel sounds normal. NEUROLOGIC: She is awake, alert, responding appropriately. All her cranial nerves intact. She moves her extremities without difficulty, although she is very slow in executing some movement, although she did not display any evidence of cerebellar dysfunction. She has severe proximal myopathy with marked difficulty getting out of the chair or walking forward. LABORATORY DATA: Her lab work this morning showed that her serum sodium is 143, potassium 3.7, chloride 106, bicarbonate 29, anion gap of 8, BUN 15, creatinine 0.9, estimated GFR was 62 mL per minute. Her glucose was 103, calcium was 9.1. Her white cell count was 10,000, hemoglobin 11, hematocrit 33, MCV 84 and platelet count 273,000. Her sed rate was 61. ASSESSMENT: This is a 72-year-old female patient who was admitted with recurrent falls, hypokalemia, acute kidney injury and elevated D-dimer as well as weakness. Clinically, she has marked proximal myopathy with marked difficulty standing from sitting position. She has also very unsteady gait and difficulty walking in a straight line, tends to veer towards left or right side or fall forward. She is very slow in executing some movement. Her CT scan of the head was essentially unremarkable and showed that there is atrophy present, chronic ischemic changes of white matter noted, right midline shift. Globes and optic nerves unremarkable. Visualized paranasal sinuses unremarkable. Atlantoaxial joint degenerative remodeling is present. She has moderate C5-C6 and significant C6-C7 disk space narrowing present. Mild spurring is noted at these levels. Bony encroachment on the neural foramina is notable on the right at these levels and of moderate extent on the left. Nerve root compression on the right at these levels is suspected. Soft tissues of neck are unremarkable. PLAN: My plan is to consult Dr. Araujo to assist with evaluation and management to rule out possibility of Parkinson's disease. I will also arrange for her to check her thyroid function as well as morning cortisol and also arrange for CT angio of the chest to rule out possibility of PE. NATALY CASTELLANOS MD DR: ANDI/jesus JOB#: [id number] / [id number]
[2018-08-29 05:26] VITALS: BP 142/77
[2018-08-29 06:45] LABS: CALCIUM 9.1 mg/dL (8.5-10.1); GFR 54.7; POTASSIUM 3.9 mmol/L (3.5-5.1)
[2018-08-29] MEDS: MULTIVITAMIN with MINERAL TABLET. PO SCH (08:05)
[2018-08-29] MEDS: DULoxetine HCL 60 MG CAPSULE.DR PO SCH ×2 (08:05→21:02)
[2018-08-29] MEDS: ASPIRIN 81 MG TAB.CHEW PO SCH (08:05)
[2018-08-29] MEDS: ALPRAZolam 0.5 MG TABLET PO SCH ×2 (08:05→21:02)
[2018-08-29] MEDS: lamoTRIgine 100 MG TABLET. PO SCH (08:06)
[2018-08-29] MEDS: NYSTATIN TOPICAL POWDER 15GM BOTTLE. TP SCH ×2 (08:07→21:02)
[2018-08-29] MEDS: LIDOCAINE (700MG/PATCH) PATCH. TD SCH (08:07)
[2018-08-29] MEDS: ENOXAPARIN ** NOTE DOSE ** SYRINGE SQ SCH (08:08)
[2018-08-29] MEDS ORDERED: NON FORMULARY ITEM (Aspirin (Aspir-Low) 81 MG) PO SCH (09:00)
--- NOTE | 2018-08-29 09:31 | NUR ---
Screen for [facility] sent via fax per physician order this shift.
[2018-08-29 11:43] VITALS: BP 142/67
[2018-08-29 15:09] VITALS: BP 158/83
--- NOTE | 2018-08-29 18:43 | PDOC ---
Exam Note: Gunner Note: Please also refer to the separate dictated note~for this date of service dictated separately.~Patient seen individually. Discussed the patient with Nursing staff reviewed the chart.~Reviewed interim history and current functioning. Reviewed vital signs,~Labs/ Radiology~and current medications noted below. Continue current treatment with the changes noted in the dictated addendum note Assessment: Vital Signs/I&O: Vital Signs Date Time Temp Pulse Resp B/P (MAP) Pulse Ox O2 Delivery O2 Flow Rate FiO2 08/29/18 15:09 98.4 72 20 158/83 (108) 95 Room Air I & O 08/28/18 08/28/18 08/29/18 15:00 23:00 07:00 Intake Total 600 ml 460 ml 240 ml Balance 600 ml 460 ml 240 ml Labs: Laboratory Tests Test 08/29/18 05:42 Sodium Level 142 mmol/L (136-145) Potassium Level 3.9 mmol/L (3.5-5.1) Chloride Level 106 mmol/L (98-107) Carbon Dioxide Level 28 mmol/L (21-32) Anion Gap 8 (6-14) Blood Urea Nitrogen 13 mg/dL (7-20) Creatinine 1.0 mg/dL (0.6-1.0) Estimated GFR (Cockcroft-Gault) 54.7 Glucose Level 90 mg/dL (70-99) Calcium Level 9.1 mg/dL (8.5-10.1) Cortisol AM Sample 1.07 ug/dL (4.3-22.4) L Current Medications: Meds: Current Medications Medications (Trade) Dose Ordered Sig/Shahnaz Route PRN Reason Start Time Stop Time Status Last Admin Dose Admin Atorvastatin Calcium (Lipitor) 20 mg QHS PO 08/28/18 21:00 08/28/18 20:50 Lidocaine (Lidoderm) 1 patch DAILY TD 08/29/18 09:00 08/29/18 08:07 Alprazolam (Xanax) 1 mg BID PO 08/28/18 21:00 08/29/18 08:05 Duloxetine HCl (Cymbalta) 60 mg BID PO 08/28/18 21:00 08/29/18 08:05 Lamotrigine (LaMICtal) 150 mg DAILY PO 08/29/18 09:00 08/29/18 08:06 Multivitamins/ Calcium (Thera-M Plus) 1 tab DAILY PO 08/29/18 09:00 08/29/18 08:05 Nystatin (Nystop) 1 sparkle BID TP 08/28/18 21:00 08/29/18 08:07 I have reviewed the current psychotropics carefully including drug interactions. Risk benefit ratio favors no change other than as noted in my dictated progress note. Diagnosis: Problems: (1) Major depressive disorder, recurrent episode (2) Post traumatic stress disorder (3) Obsessive compulsive disorder (4) Impulse control disorder (5) Anxiety disorder (6) Panic disorder with agoraphobia and severe panic attacks ARVIDN ARAIZA MD Aug 29, 2018 18:43
[2018-08-29 18:59] VITALS: BP 136/70
[2018-08-29] MEDS ORDERED: PATCH REMOVAL. MC SCH (21:00)
[2018-08-29] MEDS: ATORVASTATIN CALCIUM 20 MG TABLET PO SCH (21:02)
--- NOTE | 2018-08-29 22:27 | CONS ---
DATE OF CONSULTATION: 08/28/2018 REFERRING PHYSICIAN: Dr. Morel. REASON FOR CONSULTATION: Lower back pain, frequent falls. HISTORY OF PRESENT ILLNESS: This is a 72-year-old right-handed female who was admitted through Emergency Room after she presented with chief complaints of chronic lower back pain radiating into the left buttock and associated with numbness and paresthesia for several years. The symptoms have worsened in the last month or so and aggravated by prolonged standing, sitting or bending. She has recently noticed increased weakness of the lower extremities, more prominent on the left side resulted in multiple falls in the past; however, the recent fall resulted from tripping by her dog. Subsequently, she acquired small and superficial bruises over the knee joints. She denies head injuries, loss of consciousness, bowel or bladder incontinence. On occasion, she complains of exertional chest pain, but she denies shortness of breath or diaphoresis. PAST MEDICAL HISTORY: Significant for major depressions, hypertension, hyperlipidemia, insomnia and gait disturbances. The patient has been using a walker for at least 6 months. History of posttraumatic stress disorder, bipolar and panic disorders along with migraine headaches. PAST SURGICAL HISTORY: Significant for bilateral cataract extraction, hysterectomy, appendectomy, tonsillectomy, and right wrist surgery. SOCIAL HISTORY: The patient is . She has 2 daughters and 1 son. She denies smoking, alcohol drinking, or illicit drug use. 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 FAMILY HISTORY: Noncontributory. CURRENT HOME MEDICATIONS: Lipitor 20 mg p.o. daily, aspirin 81 mg p.o. daily, Voltaren gel 2 g topically 4 times daily, ibuprofen 600 mg p.r.n., lamotrigine 150 mg for depression daily, Cymbalta 60 mg twice daily, alprazolam 1 mg twice daily, lidocaine patches, multivitamins. ALLERGIES: TYLENOL, ADHESIVE, AZITHROMYCIN, HYDROCODONE, NORTRIPTYLINE, OLANZAPINE, SEROQUEL AND TOLMETIN. REVIEW OF SYSTEMS: A 10-point review of systems as mentioned above in the history of present illness. She also complains of intermittent tremor of the hands upon arising, which usually subside later on the same day. PHYSICAL EXAMINATION: GENERAL: Well-developed, well-nourished female, not in acute distress. She weighs 88 kilos. VITAL SIGNS: Blood pressure 164/77, respiratory rate 20, pulse is 78, temperature 98.2, oxygen saturation 97% on room air. HEENT: Normocephalic, atraumatic, otherwise unremarkable. NECK: Supple. Negative for carotid bruit, lymphadenopathy or thyromegaly. LUNGS: Clear to A and P. CARDIOVASCULAR: Regular rate and rhythm, normal S1, S2. There is no S3, S4 or murmur. ABDOMEN: Soft. Bowel sounds positive. EXTREMITIES: Negative for cyanosis, clubbing or edema. NEUROLOGIC: Mental status: The patient is alert and oriented x 3. The speech is fluent. There is no language dysfunction. Memory, judgment, and abstract thinking are normal. The patient denies hallucination or delusion. CRANIAL NERVES: Visual gonzalez are full. The pupils are reactive to light and accommodation. The extraocular movements are intact. There is no nystagmus. There is no facial motor or sensory deficit. Hearing is intact bilaterally. The palate is elevated symmetrically. Sternocleidomastoid muscles are powerful bilaterally. The patient shrugs her shoulders symmetrically and protrudes her tongue in the midline without fasciculation or atrophy. MOTOR: No focal muscle bulk was seen. The tone is normal. The strength is 5/5 in the upper extremities and 4/5 in the proximal left lower extremity and 5/5 in the proximal and distal right upper extremity. Sensory examination revealed slightly diminished pinprick and light touch senses over the lateral aspect of the left lower extremity compared to that on the right side. Deep tendon reflexes were symmetric with absent left Achilles response compared with normal response on the left side. Gait: The patient has difficulty to stand up, but she uses a walker perfectly. DIAGNOSTIC: Initial nonenhanced head CT scan revealed no evidence of acute intracranial process. CT of the pelvis and lumbar spine consistent with degenerative disk disease, otherwise, unremarkable. Ultrasound of the upper and lower extremities revealed no evidence of DVT. CT angio of the lungs revealed no evidence of pulmonary embolism and acute abdominal series revealed no evidence of bowel obstructions. LABORATORY DATA: CBC revealed white blood cells of 10,000, hemoglobin 11.1, hematocrit 33.8, platelet count 273,000. Chemistry revealed sodium of 143, potassium 3.7, chloride 106, CO2 of 29, BUN 15, creatinine 0.9, glucose 103, and calcium 9.2. Recent lipid profile revealed high triglyceride with LDL at 101. TSH was normal at 1.686. Urinalysis revealed moderate leukocyte with white blood cells of 11-20. IMPRESSION: 1. Frequent falls, the recent one was prior to admission due to tripping with dog associated with proximal weakness of the left lower extremity. Etiology uncertain; however, radicular lower back pain may have contributed to the current symptoms. 2. Multiple medical problems include hypertension, hyperlipidemia and possible recent urinary tract infections. 3. Anxiety, posttraumatic stress disorders and major depression intermittent with panic attack and bipolar disorder. RECOMMENDATIONS: 1. We will continue with current conservative management with nonsteroidal anti-inflammatory drugs for a short period along with analgesics and muscle relaxant. 2. Physical therapy as tolerated. 3. We will arrange for EMG/NCS of the lower extremities to rule out entrapment neuropathy versus lumbosacral radiculopathy. M Dom RAMEY MD DR: NOE/jesus JOB#: [id number] / [id number]
[2018-08-29 22:59] VITALS: BP 146/75
--- NOTE | 2018-08-30 03:13 | PN ---
DATE: SUBJECTIVE: The patient stated her lower back pain is better today and she denies any pain when she is resting in bed. The patient stated tremor will be mild and just in the morning when she gets out of the bed. She denies stiffness, numbness or paresthesia, bowel or bladder dysfunctions. OBJECTIVE: GENERAL: Well-developed, well-nourished female, not in acute distress. VITAL SIGNS: Blood pressure is 142/77, respiratory rate 18, pulse rate is 77 and regular, temperature 98, oxygen saturation 92% on room air. HEENT: Normocephalic, atraumatic, otherwise unremarkable. NECK: Supple. Negative for carotid bruit, lymphadenopathy or thyromegaly. LUNGS: Clear to A and P. CARDIOVASCULAR: Regular rate and rhythm, normal S1, S2. ABDOMEN: Soft. Bowel sounds positive. EXTREMITIES: Negative for cyanosis, clubbing or edema. NEUROLOGIC: Normal mental status and intact cranial nerves. Motor Examination: No focal muscle bulk was seen. The strength was 5/5 in the upper extremity and 4/5 in the left proximal lower extremities. No tremor. The tone is normal. Sensory examination revealed diminished pinprick and light touch senses over the lateral aspect of the left lower extremity, otherwise the sensory examination revealed normal pinprick, light touch, vibratory and position senses. Deep tendon reflexes were symmetric with absent left Achilles responses. Gait: The stance is steady when she uses a walker. IMPRESSION: 1. Chronic lower back pain with frequent falls, etiology for lower back pain, likely due to underlying degenerative disk disease and radicular pain. 2. No strong evidence of parkinsonism at this time. 3. Multiple medical problems include hypertension, hyperlipidemia and possible cervical radiculopathy due to underlying degenerative disk disease and possible urinary tract infection. RECOMMENDATIONS: 1. Continue with current management. 2. Physical therapy as tolerated. 3. Follow up in Neurologic Clinic with Dr. Ramey after 2 weeks from discharge to evaluate any worsening of slowing and rule out entrapment neuropathy versus lumbosacral radiculopathy. In case of questionable parkinsonism, empiric trial of carbidopa/levodopa 25/100 extended release 1 tablet 3 times daily to rule out possible early parkinsonism. M Dom RAMEY MD DR: NOE/jesus JOB#: [id number] / [id number]
--- NOTE | 2018-08-30 04:22 | PN ---
DATE: SUBJECTIVE: The patient is sitting comfortably in her chair, in no apparent distress. She continued to complain of pain in her low back and difficulty walking with tendency to fall to the right and left or sometimes forward. According to nursing staff, she has ____ last night, has been extremely depressed and crying. PHYSICAL EXAMINATION: GENERAL: When I examined her; however, this morning, she looked well and was clearly in no apparent respiratory distress. No pallor, jaundice, cyanosis or thyromegaly. No jugular venous distension. No lower limb edema. VITAL SIGNS: Her heart rate was 77, blood pressure 142/77, temperature was 98, respiratory rate was 18 and oxygen saturation was 92%. HEAD, EYES, EARS, NOSE AND THROAT: Normocephalic, atraumatic. NECK: Supple. HEART: Showed normal first and second heart sounds with no gallop, rub or murmur. CHEST: Clear to auscultation. No crepitation or rhonchi. ABDOMEN: Distended, soft, nontender. NEUROLOGIC: She is awake, alert, responding appropriately. All cranial nerves intact. She ambulates with a walker with standby assist. Her intake was 700. No output was recorded. LABORATORY DATA: As of this morning, her serum sodium 142, potassium 3.9, chloride 106, bicarbonate 28, anion gap of 8, BUN 13, creatinine 1, estimated GFR was 55 mL per minute. Her glucose 90 and calcium was 9.1. Her serum triglycerides were 172. Total cholesterol 180, LDL cholesterol 101, VLDL was 34, HDL was 45 and the ratio was 4. Her TSH was 1.686. Given that she had recurrent falls and D-dimer was high, she had a CT angio of the chest, which basically showed that the patient has no evidence of acute pulmonary embolus, minimal dependent opacities in the lower lobes likely atelectasis or scarring. ASSESSMENT AND PLAN: The patient was admitted with recurrent falls and muscle weakness. She has also unsteady gait. According to her, she has tendency to veer towards left or right or fall forward. She is on 3 medications that might be contributing to this. She is on lamotrigine 150 mg daily. She is on alprazolam 1 mg twice a day as well as atorvastatin 20 mg that can cause immune-mediated myopathy. I did consult Dr. Araujo and that she has also depression for which we will consult Dr. Gentile for evaluation to see whether she qualifies for inpatient psychiatric treatment. She has multiple other medical problems including hypertension, hyperlipidemia, gait disorder, posttraumatic stress disorder, migraine headache. NATALY CASTELLANOS MD DR: ANDI/jesus JOB#: [id number] / [id number]
[2018-08-30 05:03] VITALS: BP 144/71
--- NOTE | 2018-08-30 05:45 | NUR ---
Pt has been resting most of this shift. Pt does get tearful when referring to her puppy she bought recently. She states that her host/hostess head where she stays agreed to take the dog permanently. Pt also informed this nurse that her depression got worse approximately 2 months ago, when she had to put her dog down due to medical problems with him, she had him for many of years and now she feels lonely and no one to talk to.
[2018-08-30 06:28] LABS: HEMATOCRIT 34.7 % (36.0-47.0); HEMOGLOBIN 11.4 g/dL (12.0-15.5); RED BLOOD COUNT 4.16 x10^6/uL (3.50-5.40); RED CELL DISTRIBUTION WIDTH 15.4 % (11.5-14.5); WHITE BLOOD COUNT 9.7 x10^3/uL (4.0-11.0)
[2018-08-30 06:30] LABS: CALCIUM 9.1 mg/dL (8.5-10.1); CREATININE 0.9 mg/dL (0.6-1.0); GFR 61.7; POTASSIUM 3.8 mmol/L (3.5-5.1)
[2018-08-30 08:41] VITALS: BP 121/73
[2018-08-30 08:45] VITALS: BP 115/69
[2018-08-30] MEDS: NYSTATIN TOPICAL POWDER 15GM BOTTLE. TP SCH (08:58)
[2018-08-30] MEDS: LIDOCAINE (700MG/PATCH) PATCH. TD SCH (09:00)
[2018-08-30] MEDS: MULTIVITAMIN with MINERAL TABLET. PO SCH (09:00)
[2018-08-30] MEDS: ALPRAZolam 0.5 MG TABLET PO SCH (09:00)
[2018-08-30] MEDS: ASPIRIN 81 MG TAB.CHEW PO SCH (09:00)
[2018-08-30] MEDS: DULoxetine HCL 60 MG CAPSULE.DR PO SCH (09:00)
[2018-08-30] MEDS: lamoTRIgine 100 MG TABLET. PO SCH (09:17)
--- NOTE | 2018-08-30 09:50 | PN ---
DATE: SUBJECTIVE: The patient denies any new medical or neurological complaints. She continues to be dizzy when she stands up. She has generalized weakness. She continues to complain of lower back pain radiating to the left lower extremity. She denies chest pain, shortness of breath or palpitation. OBJECTIVE: GENERAL: Well-developed, well-nourished female, not in acute distress. VITAL SIGNS: Blood pressure 115/69, respiratory rate 18, pulse is 79, temperature is 97.1, oxygen saturation 94% on room air. HEENT: Normocephalic, atraumatic, otherwise unremarkable. NECK: Supple. Negative for carotid bruit, lymphadenopathy, JVD or thyromegaly. LUNGS: Clear to A and P. CARDIOVASCULAR: Regular rate and rhythm. Normal S1, S2. ABDOMEN: Soft. Bowel sounds positive. EXTREMITIES: Negative for cyanosis, clubbing or edema. NEUROLOGIC: Mental Status: The patient is alert and oriented x 3. Speech is fluent. There is no language dysfunction. Cranial nerves are intact. Motor examination revealed no focal muscle bulk was seen. The tone was normal. The strength was 4/5 throughout. The patient does not have any resting tremor. Sensory examination revealed normal pinprick, light touch senses throughout. Deep tendon reflexes were symmetric and active with absent left Achilles responses. Gait: The stance is unsteady today. The patient uses a walker for ambulation. IMPRESSION: 1. Chronic radicular lower back pain. 2. Frequent falls and deconditioning. 3. Multiple medical problems include hypertension, hyperlipidemia, possible cervical radiculopathy. RECOMMENDATIONS: Continue with physical therapy and current medical and psychiatric care. M Dom RAMEY MD DR: NOE/jesus JOB#: [id number] / [id number]
[2018-08-30 11:30] VITALS: BP 124/50
--- NOTE | 2018-08-30 11:43 | NUR ---
Pt c/o pain to her back, stating when asked whether the Lidocaine patch was helping by this RN, "It doesn't feel like it's doing anything." Pt offered ordered Ibuprofen and Diclofenac, but pt stated, "I'll wait till after lunch." WCTM. Nick Kelsey RN
[2018-08-30] MEDS: IBUPROFEN 600 MG TABLET. PO PRN (13:40)
--- NOTE | 2018-08-30 14:03 | DISCH ---
HOME HEALTH DISCHARGE/MEDS DISCHARGE INFORMATION: Discharge Date: Aug 30, 2018 Final Diagnosis: Problems Medical Problems: (1) Acute kidney failure Status: Acute (2) Anxiety disorder Status: Acute (3) Dehydration Status: Acute (4) Elevated d-dimer Status: Acute (5) Falling Status: Acute (6) HTN (hypertension) Status: Chronic (7) Hyperlipidemia Status: Chronic (8) Hypokalemia Status: Acute (9) Impulse control disorder Status: Chronic (10) Migraine headache Status: Acute (11) Myopathy Status: Acute (12) Obsessive compulsive disorder Status: Chronic (13) Panic disorder with agoraphobia and severe panic attacks Status: Acute (14) Post traumatic stress disorder Status: Acute Condition on Discharge: Stable CODE STATUS: Code Status: Full HOME HEALTH: Face to Face: I certify this patient is under my care and that I, or a nurse practitioner or physician's university administrative assistant working with me, had a face to face encounter that meets the physician face to face encounter requirements with this patient on 08/30/2018 Medical Condition(s): Other Senior Care For: Assess & Educate Safety Physical Therapy For: Evalulation/Treatment Occupational Therapy For: Evaluation/Treatment POST DISCHARGE ORDERS: Activity Instructions for Disc: Activity as tolerated Weight Bearing Status after Di: Full weight bearing DIET AFTER DISCHARGE: Regular CERTIFICATION STATEMENT: Certification Statement: Based on the above finding, I certify that this patient is confined to the home and needs intermittent alf care, physical therapy and/or speech therapy, or continues to need occupational therapy.~ This patient is under my care, and I have initiated the establishment of the plan of care.~ This patient will be followed by myself or a community physician who will periodically review the plan of care. DISCHARGE MEDICATIONS: Home Meds Reported Medications Lamotrigine (LAMOTRIGINE) 150 Mg Tablet, 150 MG PO DAILY for Bipolar D/O, TAB 06/08/17 Nystatin (NYSTOP) 60 Gm Powder, 60 CHANDAN TP BID for Yeast, MISC 06/08/17 Lidocaine (Lidocaine PATCH ) 1 Each Adh..patch, 1 PATCH TD DAILY for PAIN, PATCH Apply to lower back. Patches may remain in place for up to 12 hours in any 24 hour period. 06/08/17 Diclofenac Sodium (VOLTAREN) 100 Gm Gel..gram., 2 GM TP PRN QID PRN for PAIN 06/04/17 Multivitamin-Min/Iron/FA/Vit K (Multi-Day Plus Minerals Tablet) 1 Each Tablet, 1 TAB PO DAILY for Supplement 06/04/17 Nystatin (NYSTATIN) 15 Gm Cream..g., 1 CHANDAN TP PRN TID PRN for Yeast 06/04/17 Clobetasol Propionate (CLOBETASOL PROPIONATE) 15 Gm Gel..gram., 1 CHANDAN TP PRN QHS PRN for ITCHING 06/04/17 Aspirin (ASPIR-LOW) 81 Mg Tablet.dr, 81 MG PO DAILY for Cardiac Health 06/04/17 Ibuprofen (IBUPROFEN) 600 Mg Tablet, 600 MG PO PRN Q6HRS PRN for PAIN 06/04/17 Duloxetine Hcl (CYMBALTA) 60 Mg Capsule.dr, 60 MG PO BID for Depression 06/04/17 Atorvastatin Calcium (ATORVASTATIN CALCIUM) 20 Mg Tablet, 20 MG PO QHS for Hyperlipidemia 06/04/17 Alprazolam (XANAX) 1 Mg Tablet, 1 MG PO BID for ANXIETY 06/04/17 Discontinued Reported Medications Trazodone Hcl (TRAZODONE HCL) 50 Mg Tablet, 25 MG PO QHS for INSOMNIA, TAB 06/08/17 Trazodone Hcl (TRAZODONE HCL) 50 Mg Tablet, 25 MG PO PRN QHS PRN for INSOMNIA, TAB 06/08/17 Hydroxyzine Pamoate (HYDROXYZINE PAMOATE) 25 Mg Capsule, 25 MG PO PRN Q2HR PRN for ANXIETY / AGITATION, CAP 06/08/17 Magnesium Hydroxide (MILK OF MAGNESIA) 2,400 Mg/10 Ml Oral.susp, 2400 MG PO PRN QHS PRN for CONSTIPATION, LIQUID 06/08/17 Mag Hydrox/Al Hydrox/Simeth (ADVANCED ANTACID LIQUID) 355 Ml Oral.susp, 15 ML PO PRN AFTMEALHC PRN for DYSPEPSIA, LIQUID 06/08/17 Alprazolam (ALPRAZOLAM) 0.25 Mg Tablet, 0.25 MG PO PRN Q2HR PRN for ANXIETY / AGITATION, TAB 0 Refills Max daily dose of 3.5mg from all PRN and scheduled doses combined. 06/08/17 Sumatriptan Succinate (IMITREX) 50 Mg Tablet, 50 MG PO PRN QID PRN for MIGRAINE HEADACHE 06/04/17 L. Acidophilus/Pectin, [place] (Acidophilus Capsule) 1 Each Capsule, 1 CAP PO DAILY for Supplement 06/04/17 NATALY CASTELLANOS MD Aug 30, 2018 14:03
[2018-08-30 14:30] VITALS: BP 118/71
[2018-08-30] MEDS ORDERED: CEFD300C PO (14:47)
[2018-08-30] MEDS ORDERED: LAMO25TA9 PO (14:48)
--- NOTE | 2018-08-30 15:16 | NUR ---
PT dc to home. Pt is able to verbalize understanding of discharge instructions and medications. PT sent with 2 RX for lamictal HS and Cefdinir BID. PT to have home health at home. Pt left via WC with friend driving. Dilia WHITE
[2018-08-30] MEDS ORDERED: lamoTRIgine 25 MG TABLET. PO SCH (18:00)
--- NOTE | 2018-08-30 20:55 | DS ---
DATE OF DISCHARGE: 08/30/2018 HOSPITAL COURSE: The patient is a 72-year-old female patient who was admitted with recurrent falls and unsteady gait. She also has difficulty standing from a sitting position and difficulty walking in a straight line. According to her, she tends to veer towards left to right or left to far forward. She was complaining of low back pain after she has fallen in her back. She has had a CT scan of the lumbar spine, which basically showed that the alignment of the lumbar spine is normal, no acute fracture or bony destruction, facet joint degenerative changes of the lower lumbar spine are present. Vertebral body heights and disk spaces are adequate. Sacroiliac and hip joints are symmetrical and unremarkable. Soft tissues about the pelvis are unremarkable. She was seen in consultation by Dr. Araujo and Dr. Gentile. She is known to have major depressive disorder. Her D-dimer was high, so she had bilateral upper and lower extremity venous ultrasound, which was negative for DVT. She has CT angio of the chest, which was also negative for pulmonary emboli and she was seen in consultation by the physical therapist and apparently she has been able to walk with a walker. It was felt the patient will require further physical therapy and therefore, she was discharged home with home health to continue with physical and occupational therapy. PHYSICAL EXAMINATION: GENERAL: When I saw her this afternoon, she looked well and was clearly in no apparent respiratory distress. No pallor, jaundice, cyanosis or thyromegaly. No jugular venous distension. No limb edema. VITAL SIGNS: Her heart rate was 82, blood pressure was 124/50, temperature was 97.1, respiratory rate 20 and oxygen saturation was 97%. HEAD, EYES, EARS, NOSE AND THROAT: Showed normocephalic, atraumatic. NECK: Supple. HEART: Showed normal first and second heart sounds. No gallop, rub or murmur. CHEST: Clear to auscultation. No crepitation or rhonchi. ABDOMEN: Distended, soft, nontender. NEUROLOGIC: She is awake, alert, responding appropriately. All cranial nerves intact. She moves extremities without difficulty. She ambulates with a walker. Her intake over the last 24 hours was 1300, no output was recorded. LABORATORY DATA: Her lab work showed that her white cell count was 9700, hemoglobin 11.4, hematocrit 34, MCV 84 and platelet count 286,000. Her chemistry showed a serum sodium 139, potassium 3.8, chloride 104, bicarbonate 27, anion gap of 8, BUN 14, creatinine 0.9, estimated GFR was 62 mL per minute. Her glucose was 91, calcium was 9.1. Her serum triglycerides were 172. Total cholesterol 180, LDL cholesterol 101, VLDL was 34, HDL cholesterol was 45 and the ratio was 4. Her TSH was 1.685 and a.m. cortisol was 1.07. I am not sure what to make of this value as there are no electrolyte abnormalities or hypertension to suggest some hypocortisolism. The patient will be advised to repeat this and perhaps make an appointment to see an city tax auditor will elicit it further. Her prothrombin time was 9.3, INR 0.9. PTT was 26. D-dimer was 1.01. Urinalysis was unremarkable. DISCHARGE MEDICATIONS: The patient will be discharged home to continue on lamotrigine 25 mg in the evening and lamotrigine 150 mg in the morning, multivitamin 1 tablet once a day and Lidoderm patch topically at bedtime, nystatin powder applied topically twice a day, duloxetine 60 mg twice a day, clobetasol propionate one application at bedtime, alprazolam 1 mg p.o. b.i.d., atorvastatin 20 mg at bedtime, ibuprofen 600 mg every 6 hours as needed, diclofenac 2 grams apply topically 4 times a day and aspirin 81 mg once a day. FINAL DISCHARGE DIAGNOSES: 1. Chronic radicular lower back pain. 2. Frequent falls and deconditioning. 3. Multiple other medical problems including: A. Hypertension. B. Hyperlipidemia. C. Possible cervical radiculopathy. NATALY CASTELLANOS MD DR: ANDI/jesus JOB#: [id number] / [id number]
--- NOTE | 2018-08-31 02:32 | CONS ---
DATE OF CONSULTATION: 08/29/2018 PSYCHIATRIC CONSULTATION This late entry, 08/29/2018, covers elements not covered in my initial note. I met with the patient in the evening of 08/29/2018 in ICU bed #6. Discussed with nursing staff and reviewed the chart. IDENTIFYING DATA: The patient is a 72-year-old female referred by Dr. Morel on account of worsening symptoms of anxiety and depression and fluctuations in her mood with worsening mood swings. She has had crying spells, increasing panic attacks which are worse at night. Apparently, her Lamictal was stopped on 07/18/2018 on account of skin infection, treated with Keflex and to avoid any drug interactions with the Keflex. Her mood symptoms have worsened since then though they were evident even before this. CHIEF COMPLAINT: "I can't go on like this. I live at [facility] by myself and I have been there about 5 years. I go to [employer] for my grocery shopping. I have been more depressed. Nothing is helping." HISTORY OF PRESENT ILLNESS: The patient has a history of bipolar 2 disorder versus major depressive disorder. She was hospitalized with us a few months back on the [facility] and had been stable on a combination of Lamictal along with duloxetine 60 mg twice a day, whereas the Lamictal was 150 mg a day, and Xanax 1 mg twice a day. Since stopping the Lamictal and perhaps even before then, she has had increasing mood swings, being depressed, hopeless, worthless with panic attacks. She has had sleep and appetite changes. No active suicidal or homicidal ideation. PAST PSYCHIATRIC HISTORY: As above. MEDICAL HISTORY: The patient had repeated falls and has had fallen two other times in the past 2 days in addition to another fall after she states she tripped on her dog. She complains of weakness. She has had some occasional chest pain, periodically dizziness. PAST PSYCHIATRIC HISTORY: Positive for depression, bipolar 2 disorder, symptoms of posttraumatic stress disorder, panic disorder and ongoing insomnia. MEDICAL HISTORY: Positive for hypertension, hyperlipidemia, impaired ambulation, migraine headaches, deconditioning. CURRENT PSYCHOTROPICS: Xanax 1 mg twice a day, duloxetine 60 mg twice a day. ALLERGIES: TYLENOL, ADHESIVE, AZITHROMYCIN, HYDROCODONE, LATEX, NORTRIPTYLINE, OLANZAPINE, SEROQUEL, and TOLMETIN. FAMILY HISTORY: Noncontributory for psychiatric problems. SOCIAL HISTORY: The patient's daughter is involved in her care. The patient lives in a [facility] [address] in [place]. No alcohol or drug abuse history is noted. MENTAL STATUS EXAMINATION: The patient was seen individually in the evening of 08/29/2018 in ICU bed #6. She did not seem to quite remember me from her [facility] a few months back. Speech is coherent, abstraction fair, computation impaired, language function intact, attention span short. Mood is depressed, anxious and somewhat labile in her affect. No active suicidal or homicidal ideation. Attention span is short. Language function intact and intellect average. IMPRESSION: Major depressive disorder, recurrent. Bipolar 2 disorder, depressed; anxiety disorder, unspecified; panic disorder. Rest as above. RECOMMENDATION: From a psychiatric standpoint, the patient's mood swings and depression seems to have worsened since the Lamictal was stopped. I would suggest restarting Lamictal 25 mg a day for 1 week, then increasing by 25 mg a day every week until she reaches a prior dosage of 150 mg a day. She has had repeated falls and I think the Xanax should be gradually tapered. She is very reluctant doing this as she states she has been on it over 20 years. Nevertheless, given her falls over a period of time and age, she is more likely to fall if she continues on her current dosage of Xanax. She does live alone by herself and that is an added risk factor. I defer to Dr. Morel to help taper the Xanax. Dr. Morel, thank you for the opportunity to participate in your patient's care. We will follow with you. MAN Colin ARAIZA MD DR: KIEL/jesus JOB#: [id number] / [id number]
== END 2018-08-30 15:15 | disposition home health service (06) ==
LOC: ER 19:38 → INTOOBSV 23:00 → ICU 23:00
PROVIDERS: ADMIT Hospitalist; ATTEND Hospitalist
DX: M54.5 Low back pain (principal); E87.6 Hypokalemia; N17.9 Acute kidney failure, unspecified; F41.9 Anxiety disorder, unspecified; N39.0 Urinary tract infection, site not specified; E78.5 Hyperlipidemia, unspecified; R26.9 Unspecified abnormalities of gait and mobility; F43.10 Post-traumatic stress disorder, unspecified; F31.9 Bipolar disorder, unspecified; G43.909 Migraine, unspecified, not intractable, without status migrainosus; F41.0 Panic disorder [episodic paroxysmal anxiety]; G47.00 Insomnia, unspecified; R53.1 Weakness; W01.0XXA Fall on same level from slipping, tripping and stumbling without subsequent striking against object, initial encounter; R29.6 Repeated falls; I10 Essential (primary) hypertension; G89.29 Other chronic pain; R42 Dizziness and giddiness; M54.10 Radiculopathy, site unspecified; Z79.899 Other long term (current) drug therapy; Z81.8 Family history of other mental and behavioral disorders; R79.1 Abnormal coagulation profile; E86.0 Dehydration; Z82.49 Family history of ischemic heart disease and other diseases of the circulatory system; Z90.710 Acquired absence of both cervix and uterus; Z90.49 Acquired absence of other specified parts of digestive tract; Z98.41 Cataract extraction status, right eye; Z98.42 Cataract extraction status, left eye; Y93.K1 Activity, walking an animal; Y92.89 Other specified places as the place of occurrence of the external cause; Y99.8 Other external cause status
CPT/HCPCS: 36415; 70450; 71275; 72125; 72131; 72192; 74022; 80048; 80061; 80076; 80307; 81001; 82533; 82550; 83690; 83735; 83880; 84443; 84484; 85025; 85027; 85379; 85610; 85651; 85730; 87086; 87186; 87641; 93005; 93306; 93970; 96361; 96365; 96372; 97110; 97161; 97166; 97530; 97535; 99284; G0378; J0696; J1650; J7120; Q9967; G0379; 99285-25

== ENCOUNTER 2019-07-09 21:07 | Emergency (ER) | payer MEDICARE ==
[~2019-07-09] VITALS: Ht 160 cm; Wt 86.3 kg
[~2019-07-09 21:07] MED LIST changes: +CEFD300C PO; -LAMO150T2 PO; +LAMO150T4 PO; +LAMO25TA9 PO; -MAGN2400 PO; +MAGN24003 PO
--- NOTE | 2019-07-09 21:29 | PHYS DOC ---
Past History Past Medical History: Angina, Anxiety, Depression, Hypertension, UTI, Other Past Surgical History: Appendectomy, Hysterectomy, Other Additional Past Surgical Histo: R ARM SX Alcohol Use: None Drug Use: None General Adult EDM: Chief Complaint: MECHANICAL FALL HPI: HPI: ".. I was visiting my mother dane.. .it is her birthday... but I missed stepped.. and fell backwards and rolled down the hill... My lower back still hurts.. " Patient is a 73 year old female who presents with above hx and complaints of a fall. Patient states she only tripped and there is no dysrhythmia. Patient localizes pain to lumbar area. Patient denies any head injury. Patient denies any loss of consciousness. Patient was ambulatory after fall but left lower back pain. Patient denies any recent changes in meds. Patient denies any travel outside the [place] area. Patient denies any immunosuppression. Pt. follows with Ian. Review of Systems: Review of Systems: Constitutional: Denies fever or chills Eyes: Denies change in visual acuity HENT: Denies nasal congestion or sore throat Respiratory: Denies cough or shortness of breath Cardiovascular: Denies chest pain or edema GI: Denies abdominal pain, nausea, vomiting, bloody stools or diarrhea : Denies dysuria Musculoskeletal: Complains of lower back pain and joint pain Integument: Denies rash Neurologic: Denies headache, focal weakness or sensory changes Endocrine: Denies polyuria or polydipsia Lymphatic: Denies swollen glands Psychiatric: Denies depression or anxiety Heart Score: HEART Score for Chest Pain: HEART Score for Chest Pain Response (Comments) Value History Slighlty/Non-Suspicious 0 ECG Nonspecific Repolarizatio 1 Age > 65 2 Risk Factors 1 or 2 Risk Factors 1 Troponin < Normal Limit 0 Total 4 Risk Factors: Risk Factors: DM, Current or recent (<one month) smoker, HTN, HLP, family history of CAD, obesity. Risk Scores: Score 0 - 3: 2.5% MACE over next 6 weeks - Discharge Home Score 4 - 6: 20.3% MACE over next 6 weeks - Admit for Clinical Observation Score 7 - 10: 72.7% MACE over next 6 weeks - Early Invasive Strategies Family History: Family History: Noncontributory to presentation Current Medications: Current Meds: See nursing for home meds Allergies: Allergies: Allergies Coded Allergies Type Severity Reaction Last Updated Verified acetaminophen Allergy Intermediate Unknown 06/06/17 Yes adhesive Allergy Intermediate Unknown 06/06/17 Yes azithromycin Allergy Intermediate Unknown 06/06/17 Yes hydrocodone Allergy Intermediate Unknown 06/06/17 Yes latex Allergy Intermediate Unknown 06/06/17 Yes nortriptyline Allergy Intermediate Unknown 06/06/17 Yes olanzapine Allergy Intermediate Unknown 06/06/17 Yes quetiapine Allergy Intermediate Unknown 06/06/17 Yes tolmetin Allergy Intermediate Unknown 06/06/17 Yes Physical Exam: PE: Constitutional: Moderate acute distress, non-toxic appearance. [] HENT: Normocephalic, atraumatic, bilateral external ears normal, oropharynx moist, no oral exudates, nose normal. [] Eyes: PERRLA, EOMI, conjunctiva normal, no discharge. Glasses Neck: Normal range of motion, no tenderness, supple, no stridor. Neck circumference more than 17 inches Cardiovascular:Heart rate regular rhythm, no murmur [] PMI to the left Lungs & Thorax: Bilateral breath sounds basilar crackles bilaterally on auscultation [] Abdomen: Bowel sounds normal, soft, no tenderness, no masses, no pulsatile masses. Morbidly obese Skin: Warm, dry, no erythema, no rash. [] Back: Lumbar spine sacral l tenderness, no CVA tenderness. [] Extremities: No tenderness, no cyanosis, no clubbing, ROM intact, bilateral lower leg edema. [] Neurologic: Alert and oriented X 3, patient moves all extremities on request, has decreased plantar sensory, no focal deficits noted. [] Psychologic: Affect anxious, judgement normal, mood normal. [] Current Patient Data: Vital Signs: Vital Signs Date Time Temp Pulse Resp B/P (MAP) Pulse Ox O2 Delivery O2 Flow Rate FiO2 07/09/19 21:10 98.6 90 20 151/83 (105) 90 Room Air EKG: EKG: My interpretation EKG shows a sinus rhythm at 76 bpm. Leftward axis. Slightly prolonged QT interval at 422 ms. No findings of acute STEMI with contralateral changes [] Radiology/Procedures: Radiology/Procedures: [[address] [address] IMAGING REPORT Signed PATIENT: BECKI CLEARY ACCOUNT: [id number] : 1945 LOCATION: ER AGE: 73 SEX: F EXAM STATUS: REG ER ORD. PHYSICIAN: SHRUTHI RENEE MD REASON: Fall, chest pain PROCEDURE: PORTABLE CHEST 1V PORTABLE CHEST 1V Clinical History: Reason: Fall, chest pain / Spl. Instructions: / History: Technique: AP view of the chest was obtained at 07/09/2019 10:09 PM. Comparison: June 03, 2017. Findings: The cardiomediastinal silhouette is normal. The pulmonary vasculature is normal. The lungs and pleural margins are clear. Impression: No evidence of an acute cardiopulmonary process. Electronically signed by: Atiya Velazquez III, MD (07/09/2019 10:50 PM) [id number] DICTATED AND SIGNED BY: ATIYA VELAZQUEZ III, MD DATE: 07/09/192249 CC: SHRUTHI RENEE MD; [facility]IL[facility] ~ ][place] [address] IMAGING REPORT Signed PATIENT: BECKI CLEARY ACCOUNT: [id number] : 1945 LOCATION: ER AGE: 73 SEX: F EXAM STATUS: REG ER ORD. PHYSICIAN: SHRUTHI RENEE MD REASON: Fall, chest pain PROCEDURE: PORTABLE CHEST 1V PORTABLE CHEST 1V Clinical History: Reason: Fall, chest pain / Spl. Instructions: / History: Technique: AP view of the chest was obtained at 07/09/2019 10:09 PM. Comparison: June 03, 2017. Findings: The cardiomediastinal silhouette is normal. The pulmonary vasculature is normal. The lungs and pleural margins are clear. Impression: No evidence of an acute cardiopulmonary process. Electronically signed by: Atiya Velazquez III, MD (07/09/2019 10:50 PM) [id number] DICTATED AND SIGNED BY: ATIYA VELAZQUEZ III, MD DATE: 07/09/192249 CC: SHRUTHI RENEE MD; [facility] Course & Med Decision Making: Course & Med Decision Making Pertinent Labs and Imaging studies reviewed. (See chart for details) Patient is ice packs as needed. Patient take ibuprofen as needed for discomfort. Patient to follow-up with Dr. Sosa. Patient return for any concerns. Impression: 1. Trip and fall 2. Lumbar sacral back strain 3. Contusions multiple 4. Mild leukocytosis 11.9 5. Mild elevation in alk phos 158 and lipase 42 6. Morbid obesity. [] Dragon Disclaimer: Dragon Disclaimer: This electronic medical record was generated, in whole or in part, using a voice recognition dictation system. Departure Departure: Disposition: 01 HOME/RESIDENCE PRIOR TO ADM Condition: STABLE Referrals: MOE WILBURN (PCP) Crissy Disclaimer This chart was dictated in whole or in part using Voice Recognition software in a busy, high-work load, and often noisy Emergency Department environment. It may contain unintended and wholly unrecognized errors or omissions. SHRUTHI RENEE MD Jul 09, 2019 21:29
[2019-07-09] MEDS ORDERED: IV RINGERS SOLUTION,LACTATED 1,000 ML IV SCH (22:09)
[2019-07-09] MEDS ORDERED: KETOROLAC 30 MG/ML VIAL. IVP ONE (22:15)
[2019-07-09] MEDS ORDERED: ORPHENADRINE CITRATE 60 MG/2 ML VIAL. IV ONE (22:15)
[2019-07-09] MEDS ORDERED: KETOROLAC 60 MG/2 ML VIAL. IM ONE (22:15)
--- NOTE | 2019-07-09 22:45 | EKG ---
[address] [address] Test Date: 2019-07-09 Test Time: 22:41:42 Pat Name: BECKI CLEARY Department: Room: Gender: F Websphere Developer: : 1945 Requested By: SHRUTHI RENEE Order Number: [id number] Reading MD: Kwasi Harris Measurements Intervals [place] Rate: 76 P: 46 WV: 172 QRS: -19 QRSD: 84 T: 56 QT: 422 QTc: 480 Interpretive Statements SINUS RHYTHM LEFTWARD AXIS PROLONGED QT Electronically Signed On 07-10-2019 12:06:23 CDT by Kwasi Harris
[2019-07-09 22:50] LABS: BASO # 0.1 x10^3/uL (0.0-0.2); BASO % 1 % (0-3); EOS # 0.2 x10^3/uL (0.0-0.7); EOS % 2 % (0-3); HEMATOCRIT 37.5 % (36.0-47.0); HEMOGLOBIN 12.2 g/dL (12.0-15.5); LYMPH # 2.5 x10^3/uL (1.0-4.8); LYMPH % 21 % (24-48); MEAN CORPUSCULAR HEMOGLOBIN 27 pg (25-35); MEAN CORPUSCULAR HGB CONC 33 g/dL (31-37); MEAN CORPUSCULAR VOLUME 82 fL (79-100); MONO # 0.7 x10^3/uL (0.0-1.1); MONO % 6 % (0-9); NEUT # 8.4 x10^3uL (1.8-7.7); NEUT % 70 % (31-73); PLATELET COUNT 244 x10^3/uL (140-400); RED BLOOD COUNT 4.59 x10^6/uL (3.50-5.40); WHITE BLOOD COUNT 11.9 x10^3/uL (4.0-11.0)
--- NOTE | 2019-07-09 22:53 | RAD ---
Exam: CT the lumbar spine without contrast INDICATION: Fall, lower back pain TECHNIQUE: Sequential axial images through the lumbar spine obtained without IV contrast. Sagittal and coronal reformatted images were reconstructed from the axial data and reviewed. Comparisons: None FINDINGS: Vertebral body heights and alignment are well-maintained. Fracture to the lumbar spine is not identified. Multilevel spondylotic changes lumbar spine with broad-based disc bulges greatest at L4-L5 without significant neural foraminal or spinal canal stenosis. Visualized paraspinal soft tissues are unremarkable. IMPRESSION: Negative CT L-spine for acute traumatic injury. Exposure: One or more of the following in the visualized dose reduction techniques were utilized for this examination: 1. Automated exposure control 2. Adjustment of the MA and/or KV according to patient size 3. Use of iterative of reconstructive technique Electronically signed by: Estee Larsen MD (07/09/2019 10:50 PM) [id number]
--- NOTE | 2019-07-09 22:53 | RAD ---
PORTABLE CHEST 1V Clinical History: Reason: Fall, chest pain / Spl. Instructions: / History: Technique: AP view of the chest was obtained at 07/09/2019 10:09 PM. Comparison: June 03, 2017. Findings: The cardiomediastinal silhouette is normal. The pulmonary vasculature is normal. The lungs and pleural margins are clear. Impression: No evidence of an acute cardiopulmonary process. Electronically signed by: Robin Carrasco III, MD (07/09/2019 10:50 PM) [id number]
[2019-07-09 23:00] LABS: ALBUMIN 3.2 g/dL (3.4-5.0); DIRECT BILIRUBIN 0.1 mg/dL (0.0-0.2); MAGNESIUM 2.2 mg/dL (1.8-2.4); TOTAL BILIRUBIN 0.6 mg/dL (0.2-1.0); TOTAL PROTEIN 6.9 g/dL (6.4-8.2)
[2019-07-10 00:57] LABS: CALCIUM 8.9 mg/dL (8.5-10.1); GFR 54.5; POTASSIUM 3.7 mmol/L (3.5-5.1)
[2019-07-10 01:00] LABS: BARBITURATES NEG (NEG); BENZODIAZEPINES POS (NEG); CANNABINOIDS NEG (NEG); COCAINE NEG (NEG); METHADONE NEG (NEG); OPIATES NEG (NEG); PHENCYCLIDINE NEG (NEG)
[2019-07-10 01:09] LABS: AMPHETAMINE/METHAMPHETAMINE NEG (NEG)
[2019-07-10 01:15] LABS: BILIRUBIN,URINE NEG (NEG); CLARITY,URINE CLEAR; COLOR,URINE YELLOW; GLUCOSE,URINE NEG (NEG); NITRITE,URINE NEG (NEG); UROBILINOGEN,URINE 0.2 mg/dL (0.2 mg/dL)
[2019-07-10 01:16] LABS: BACTERIA,URINE 0 /HPF (0-FEW); RBC,URINE 0 /HPF (0-2); SQUAMOUS EPITHELIAL CELL,UR FEW /LPF; WBC,URINE OCC /HPF (0-4)
[2019-07-10 01:45] VITALS: BP 135/73
== END 2019-07-10 01:50 | disposition home or self-care (01) ==
LOC: ER 21:07
DX: S39.012A Strain of muscle, fascia and tendon of lower back, initial encounter (principal); D72.828 Other elevated white blood cell count; F41.9 Anxiety disorder, unspecified; F32.9 Major depressive disorder, single episode, unspecified; I10 Essential (primary) hypertension; E66.01 Morbid (severe) obesity due to excess calories; Z90.89 Acquired absence of other organs; Z90.710 Acquired absence of both cervix and uterus; Z98.890 Other specified postprocedural states; Z68.33 Body mass index [BMI] 33.0-33.9, adult; Z88.1 Allergy status to other antibiotic agents; Z88.5 Allergy status to narcotic agent; Z88.6 Allergy status to analgesic agent; Z88.2 Allergy status to sulfonamides; Z88.8 Allergy status to other drugs, medicaments and biological substances; Z91.040 Latex allergy status; W18.09XA Striking against other object with subsequent fall, initial encounter; Y93.89 Activity, other specified; Y92.89 Other specified places as the place of occurrence of the external cause; Y99.8 Other external cause status
CPT/HCPCS: 36415; 71045; 72131; 80048; 80076; 80307; 81001; 82550; 83690; 83735; 83880; 84443; 84484; 85025; 85379; 85610; 85730; 87086; 93005; 96374; 96375; 99285; J1885; J2360; J7120

== ENCOUNTER → 2019-08-16 | Outpatient (CLI) | payer MEDICARE ==
--- NOTE | 2019-08-17 18:03 | RAD ---
EXAM: BILATERAL DIGITAL SCREENING MAMMOGRAPHY. HISTORY: Routine mammographic screening. TECHNIQUE: Bilateral full field digital images were obtained in CC and MLO projections. Computer-aided detection was applied. COMPARISON: 01/17/2019. COMPOSITION: A. The breasts are almost entirely fatty. FINDINGS: There is a new focus of architectural distortion lateral and slightly superior to the left nipple line. See annotations. There is no suspicious finding on the right. BI-RADS CATEGORY 0: Incomplete--Needs Additional Imaging Evaluation. RECOMMENDATION: 1. Spot compression of a new focus of architectural distortion superolaterally on the right. Sonography if necessary. Electronically signed by: Zulma Ludwig MD (08/17/2019 6:00 PM) [id number]
== END ==
LOC: MAMMO 14:48
PROVIDERS: ATTEND Physician Assistant Medical
DX: Z12.31 Encounter for screening mammogram for malignant neoplasm of breast (principal)
CPT/HCPCS: 77067

== ENCOUNTER → 2019-09-04 | Outpatient (CLI) | payer MEDICARE ==
--- NOTE | 2019-09-04 14:38 | RAD ---
DATE: 09/04/2019 1:30 PM EXAM: DIGITAL DIAGNOSTIC LT HISTORY: Screening recall for distortion in the left anterolateral breast. COMPARISON: 08/16/2019, 01/17/2018. Technique: Spot compression views of the anterior left breast in the CC and MLO projections were obtained. FINDINGS: Breast Density: FATTY The Breast Parenchyma is primarily fatty replaced. Breast parenchyma level density A. Additional views of the anterior left breast revealed no persistent mammographic abnormality. IMPRESSION: No mammographic evidence of malignancy. BI-RADS CATEGORY: 1 NEGATIVE RECOMMENDED FOLLOW-UP: 12M 12 MONTH FOLLOW-UP Annual screening mammography is recommended, unless clinically indicated sooner based on symptoms or change in physical exam. PQRS compliance statement: Patient information was entered into a reminder system with a target due date for the next mammogram. Mammography is a sensitive method for finding small breast cancers, but it does not detect them all and is not a substitute for careful clinical examination. A negative mammogram does not negate a clinically suspicious finding and should not result in delay in biopsying a clinically suspicious abnormality. "Our facility is accredited by the [employer] Mammography Program."
--- NOTE | 2019-09-04 15:41 | RAD ---
EXAM: DUAL ENERGY X-RAY ABSORPTIOMETRY (DEXA). HISTORY: Postmenopausal screening. FINDINGS: The lowest measured T-score is -1.0 in the right hip, based on a bone mineral density of 0.836 g/cm^2. Refer to the worksheets for full detail. No comparison examinations are available. IMPRESSION: Borderline low bone mass. Bone mineral density yields a T-score between -1.0 and -2.5. Fracture risk is increased. METHODOLOGY: Dual energy x-ray absorptiometry was performed to measure bone mineral density. The following analysis is based on the 2019 Official Positions of the International Society for Clinical Densitometry: Measurements of the hips and the average of L1-L4 are preferred. When the spine and/or hip cannot be feasibly measured or interpreted, or in the setting of hyperparathyroidism, distal radial bone mineral density may be measured. The lumbar spine T-score is based on the average bone mineral density of L1-L4. In the setting of artifact or anatomic abnormality, some lumbar levels may be excluded, and the remaining levels used for calculation. A single lumbar level is not used for diagnosis, and if only a single level is available for assessment, another anatomic site will be used to assign a diagnosis. The hip T-score is based on the bone mineral density measurement of the femoral neck or total proximal femur of either side, whichever is lowest. Bilateral mean values are not used for diagnosis. The forearm T-score is derived from 33% of the distal radius of the nondominant forearm. Electronically signed by: Gloria Wade MD (09/04/2019 3:38 PM) [id number]
== END | disposition home or self-care (01) ==
LOC: DXRAD 13:36
PROVIDERS: ATTEND Physician Assistant Medical
DX: Z00.00 Encounter for general adult medical examination without abnormal findings (principal); R92.2 Inconclusive mammogram; Z78.0 Asymptomatic menopausal state
CPT/HCPCS: 77065; 77080

== ENCOUNTER 2019-12-19 18:05 | Emergency (ER) | payer MEDICARE ==
[~2019-12-19] VITALS: Ht 160 cm; Wt 86.3 kg
[2019-12-19 18:16] VITALS: BP 145/77
[2019-12-19 19:02] LABS: BASO # 0.1 x10^3/uL (0.0-0.2); BASO % 1 % (0-3); EOS # 0.3 x10^3/uL (0.0-0.7); EOS % 3 % (0-3); HEMATOCRIT 38.6 % (36.0-47.0); HEMOGLOBIN 12.3 g/dL (12.0-15.5); LYMPH # 2.6 x10^3/uL (1.0-4.8); LYMPH % 29 % (24-48); MEAN CORPUSCULAR HEMOGLOBIN 27 pg (25-35); MEAN CORPUSCULAR HGB CONC 32 g/dL (31-37); MEAN CORPUSCULAR VOLUME 84 fL (79-100); MONO # 0.7 x10^3/uL (0.0-1.1); MONO % 7 % (0-9); NEUT # 5.5 x10^3uL (1.8-7.7); NEUT % 60 % (31-73); PLATELET COUNT 256 x10^3/uL (140-400); RED BLOOD COUNT 4.58 x10^6/uL (3.50-5.40); RED CELL DISTRIBUTION WIDTH 15.4 % (11.5-14.5); WHITE BLOOD COUNT 9.1 x10^3/uL (4.0-11.0)
--- NOTE | 2019-12-19 19:06 | PHYS DOC ---
Past History Past Medical History: Angina, Anxiety, Depression, Hypertension, UTI, Other Past Surgical History: Appendectomy, Hysterectomy, Other Additional Past Surgical Histo: R ARM SX Alcohol Use: None Drug Use: None Adult General Chief Complaint Chief Complaint: ALTERED MENTAL STATUS [facility] HPI Patient 74-year-old emergency room with difficulty with speech and walking. This started this morning when she woke up. She has been having stuttering speech and felt very dizzy. She has had episodes like this previously. She has been under a lot of stress due to some emotional things at home. She denies any chest pain or shortness of breath. She has not had any URI symptoms. Her daughter called and stated that this is been ongoing for the last 3 years. Review of Systems Review of Systems Complete ROS is negative unless otherwise documented in HPI Allergies Allergies Allergies Coded Allergies Type Severity Reaction Last Updated Verified acetaminophen Allergy Intermediate Unknown 06/06/17 Yes adhesive Allergy Intermediate Unknown 06/06/17 Yes azithromycin Allergy Intermediate Unknown 06/06/17 Yes hydrocodone Allergy Intermediate Unknown 06/06/17 Yes latex Allergy Intermediate Unknown 06/06/17 Yes nortriptyline Allergy Intermediate Unknown 06/06/17 Yes olanzapine Allergy Intermediate Unknown 06/06/17 Yes quetiapine Allergy Intermediate Unknown 06/06/17 Yes Physical Exam Physical Exam General: Awake, alert, NAD. Well Nourished, well hydrated. Cooperative HEENT: Atraumatic, EOMI, PERRL, airway patent, moist oral mucosa Neck: Supple, trachea midline Respiratory: CTA bilaterally, normal effort, no wheezing/crackles CV: RRR, no murmur, cap refill <2 GI: Soft, nondistended, nontender, no masses MSK: No obvious deformities Skin: Warm, dry, intact Neuro: A&O x3, stuttering speech, 3/5 strength in BUE/BLE distally and proximally, CN 2-12 intact, cerebellar testing normal Psych: Normal affect, normal mood, not suicidal or homicidal Current Patient Data Vital Signs Vital Signs Date Time Temp Pulse Resp B/P (MAP) Pulse Ox O2 Delivery O2 Flow Rate FiO2 12/19/19 18:16 97.6 57 16 145/77 (99) 97 Room Air EKG EKG [] Radiology/Procedures Radiology/Procedures [] Heart Score Risk Factors: Risk Factors: DM, Current or recent (<one month) smoker, HTN, HLP, family history of CAD, obesity. Risk Scores: Risk Factors: DM, Current or recent (<one month) smoker, HTN, HLP, family history of CAD, obesity. Course & Med Decision Making Course & Med Decision Making Pertinent Labs and Imaging studies reviewed. (See chart for details) Patient is a 74-year-old female who presents to the emergency room with speech difficulty and weakness. She has had episodes like this previously. Patient is outside of the window for stroke activation or TPA. She will have an altered mental status work-up including CBC, CMP, troponin, EKG, chest x-ray, UA, CT head. Work-up was unremarkable. Patient stuttering speech is not consistent with aphasia. She has had this multiple times in the past. Family feels this is related to her mental health. I have offered her admission and she would like to go home. At this time will allow her to go home and follow-up with her primary care physician tomorrow. Patient's test results and vitals while in the ED were fully reviewed and discussed with the patient. Patient is stable and at this time does not need admission to the hospital. We have discussed strict re turn precautions and the importance of following up with their Primary Care Physician. Patient stated understanding and was given an opportunity to ask any questions. Patient is in agreement with plan. Dragon Disclaimer Dragon Disclaimer This electronic medical record was generated, in whole or in part, using a voice recognition dictation system. Departure Departure: Impression: Primary Impression: Weakness Additional Impressions: Anxiety disorder Post traumatic stress disorder Disposition: 01 DC HOME SELF CARE/HOMELESS Condition: STABLE Referrals: MOE WILBURN (PCP) Patient Instructions: Altered Mental Status Problem Qualifiers SARA STORM MD Dec 19, 2019 19:06
[2019-12-19 19:12] LABS: CALCIUM 9.1 mg/dL (8.5-10.1); CREATININE 1.3 mg/dL (0.6-1.0); GFR 40.2; POTASSIUM 3.6 mmol/L (3.5-5.1)
[2019-12-19 19:21] LABS: ALBUMIN 3.1 g/dL (3.4-5.0); ALBUMIN/GLOBULIN RATIO 0.9 (1.0-1.7); TOTAL BILIRUBIN 0.5 mg/dL (0.2-1.0); TOTAL PROTEIN 6.6 g/dL (6.4-8.2)
--- NOTE | 2019-12-19 19:23 | RAD ---
CT scan of the head without contrast 12/19/2019 Clinical History: Weakness. Speech difficulty. Technique: Unenhanced, contiguous, 5 mm axial sections were obtained through the head. One or more of the following individualized dose reduction techniques were utilized for this study: 1. Automated exposure control. 2. Adjustment of the mA and/or kV according to patient size. 3. Use of iterative reconstruction technique. Findings: Comparison study is dated 08/27/2018. There is generalized parenchymal atrophy. Areas of decreased attenuation are seen within the periventricular and subcortical white matter of both cerebral hemispheres consistent with areas of small vessel ischemic disease. No acute parenchymal abnormality is seen. No extra-axial fluid collection is noted. No skull fracture is seen. Impression: No acute intracranial abnormality is seen. Electronically signed by: Arnulfo Martell MD (12/19/2019 7:20 PM) [id number]
--- NOTE | 2019-12-19 19:50 | RAD ---
Exam: Chest one view INDICATION: Shortness of breath TECHNIQUE: Frontal view of the chest Comparisons: 07/09/2019 FINDINGS: The cardiomediastinal silhouette and pulmonary vessels are within normal limits. The lung and pleural spaces are clear. IMPRESSION: No acute cardiopulmonary process. Electronically signed by: Estee Larsen MD (12/19/2019 7:47 PM) [facility]SEY
[2019-12-19 20:56] LABS: BARBITURATES NEG (NEG); BENZODIAZEPINES POS (NEG); CANNABINOIDS NEG (NEG); COCAINE NEG (NEG); METHADONE NEG (NEG); OPIATES NEG (NEG); PHENCYCLIDINE NEG (NEG)
[2019-12-19 21:06] LABS: BACTERIA,URINE 0 /HPF (0-FEW); BILIRUBIN,URINE NEG (NEG); CLARITY,URINE CLEAR; COLOR,URINE YELLOW; GLUCOSE,URINE NEG (NEG); NITRITE,URINE NEG (NEG); RBC,URINE 0 /HPF (0-2); SQUAMOUS EPITHELIAL CELL,UR FEW /LPF; UROBILINOGEN,URINE 0.2 mg/dL (0.2 mg/dL)
[2019-12-19 21:09] LABS: AMPHETAMINE/METHAMPHETAMINE NEG (NEG)
== END 2019-12-19 22:30 | disposition home or self-care (01) ==
LOC: ER 18:05
DX: F43.10 Post-traumatic stress disorder, unspecified (principal); F41.9 Anxiety disorder, unspecified; R53.1 Weakness; F32.9 Major depressive disorder, single episode, unspecified; I10 Essential (primary) hypertension; Z87.440 Personal history of urinary (tract) infections; Z88.6 Allergy status to analgesic agent; Z88.8 Allergy status to other drugs, medicaments and biological substances; Z88.1 Allergy status to other antibiotic agents; Z88.5 Allergy status to narcotic agent; Z91.040 Latex allergy status
CPT/HCPCS: 36415; 70450; 71045; 80053; 80307; 81001; 83880; 84484; 85025; 99285

== ENCOUNTER → 2021-01-14 | Outpatient (CLI) | payer MEDICARE ==
[~2021-01-14] MED LIST changes: -DULO60CA6 PO; +DULO60CA7 PO
--- NOTE | 2021-01-14 16:28 | RAD ---
EXAMINATION: Chest radiograph. VIEWS: Frontal and lateral views the chest COMPARISON: Chest radiograph from 12/19/2019 INDICATION:75 years, Female, chest congestion with cough for 2 weeks. FINDINGS: Normal cardiomediastinal silhouette. Subtle right basilar opacity. Likely retrocardiac subsegmental a telectasis. No pleural effusion or pneumothorax. No acute osseous process. IMPRESSION: Subtle right basilar opacity may represent focus of atelectasis or developing infiltrate. Electronically signed by: Vladislav Black DO (01/14/2021 4:25 PM) [facility] / [facility]
== END ==
LOC: RAD 15:16
PROVIDERS: ATTEND Physician Assistant Medical
DX: R05.9 Cough, unspecified (principal); R09.89 Other specified symptoms and signs involving the circulatory and respiratory systems
CPT/HCPCS: 71046

== ENCOUNTER 2021-03-21 11:42 | Emergency (ER) | payer MEDICARE ==
[~2021-03-21] VITALS: Ht 160 cm; Wt 86.3 kg
[2021-03-21 12:01] VITALS: BP 148/96
[2021-03-21] MEDS ORDERED: FLUT9.9S NS (12:01)
[2021-03-21] MEDS ORDERED: CETI10TA74 PO (12:01)
--- NOTE | 2021-03-21 12:05 | PHYS DOC ---
Past History Past Medical History: Angina, Anxiety, Depression, Hypertension, UTI, Other Past Surgical History: Appendectomy, Hysterectomy, Other Additional Past Surgical Histo: R ARM SX Alcohol Use: None Drug Use: None Adult General Chief Complaint Chief Complaint: FLU SYMPTOM HPI HPI Patient is a 75-year-old female presenting for upper respiratory symptoms. Reports she has been at baseline health but admits developing upper respiratory symptoms approximately 2 weeks ago. She presented to local urgent care 12 days ago and was diagnosed with COVID-19. Admits she was vaccinated but overdue for her booster shot. Nonetheless, she was given a Medrol Dosepak and discharged home given unremarkable vitals and remaining work-up. Patient responded to supportive care practices and reports her symptoms of nasal congestion, rhinorrhea, postnasal drip and sore throat improved with administered steroids. Nonetheless, she presents today due to ongoing symptomatic rhinorrhea, postnasal drip, and sore throat. She has no other noteworthy medical issues. Does admit she has history of anxiety and current infection has made her more anxious than usual. No reported fevers, syncope, chest pain, ripping or tearing sensation in torso, shortness of breath, productive cough, abdominal pain, urinary symptoms or changes in motor or sensory or neuro function Review of Systems Review of Systems Fourteen body systems of review of systems have been reviewed. See HPI for pertinent positives and negative responses, other hills all other systems are negative, non-pertinent or non-contributory Allergies Allergies Allergies Coded Allergies Type Severity Reaction Last Updated Verified acetaminophen Allergy Intermediate Unknown 06/06/17 Yes adhesive Allergy Intermediate Unknown 06/06/17 Yes azithromycin Allergy Intermediate Unknown 06/06/17 Yes hydrocodone Allergy Intermediate Unknown 06/06/17 Yes latex Allergy Intermediate Unknown 06/06/17 Yes nortriptyline Allergy Intermediate Unknown 06/06/17 Yes olanzapine Allergy Intermediate Unknown 06/06/17 Yes quetiapine Allergy Intermediate Unknown 06/06/17 Yes Physical Exam Physical Exam General: Appears well, non toxic, and comfortable Skin: Warm, dry. Normal for ethnicity. HEENT: Atraumatic. PERRLA. Rhinorrhea and congestion. Postnasal drip present. Nasal turbinates boggy b/l. Moist mucous membranes. Uvula midline. Maintaining secretions. No phonation changes. Neck: Trachea midline. Normal ROM. No stridor. Respiratory: Normal WOB. CTAB w/o w/r/r. No tachypnea. Cardiovascular: Regular rate and rhythm. Normal peripheral perfusion. Abdomen: Soft. Non tender. No distension. Back: Normal ROM. Musculoskeletal: No swelling or deformity. Neuro: Alert and oriented x 4. MAEE. Lymph: No cervical LAD. Psych: Anxious affect and mood EKG EKG [] Radiology/Procedures Radiology/Procedures [] Heart Score C/O Chest Pain: No Risk Factors: Risk Factors: DM, Current or recent (<one month) smoker, HTN, HLP, family history of CAD, obesity. Risk Scores: Risk Factors: DM, Current or recent (<one month) smoker, HTN, HLP, family history of CAD, obesity. Course & Med Decision Making Course & Med Decision Making ABCs unremarkable HPI and comprehensive physical exam nonconcerning for any emergent or surgical issues Patient extremely anxious today likely contributing to her hesitation. Suffering from nonconcerning rhinorrhea and postnasal drip, has not been taking any medications for this. Continued supportive care and start of antihistamine and Flonase advised I disclosed little indication for further diagnostic ER workup, intervention, or hospitalization at this time, patient agreed. She has good access to PCP. As such, close outpatient follow-up given recent illness advised Crissy Disclaimer Crissy Disclaimer This electronic medical record was generated, in whole or in part, using a voice recognition dictation system. Departure Departure: Impression: Primary Impression: COVID-19 Additional Impression: Anxiety about health Disposition: 01 HOME / SELF CARE / HOMELESS Condition: STABLE Referrals: MOE WILBURN (PCP) Additional Instructions: As discussed prior to ER departure, your vitals and physical exam were nonconcerning for any emergent or surgical issues. You are suffering from sequelae of recent COVID-19 infection. Your symptoms should respond with continued supportive care practices that should include prescribed Zyrtec or other antihistamine of choice in addition to an intranasal corticosteroid spray such as Flonase. Please contact your primary care physician to review ER visit and recent COVID-19 illness as close outpatient follow-up is advised. If any concerning signs or symptoms present prior to outpatient follow-up please do not hesitate to come back for repeat evaluation. It was pleasure to take care of you and I wish you the best going forward Scripts Fluticasone Propionate (Flonase Allergy Relief) 9.9 Ml [place].susp 2 SPRAYS NS DAILY for rhinorrhea, #1 ML Prov: ZAK SUMMERS DO 03/21/21 Cetirizine Hcl (ZYRTEC) 10 Mg Tablet 1 TAB PO DAILY for rhinorrhea, #30 TAB 0 Refills Prov: ZAK SUMMERS DO 03/21/21 Problem Qualifiers ZAK SUMMERS DO Mar 21, 2021 12:05
== END 2021-03-21 12:52 | disposition home or self-care (01) ==
LOC: ER 11:42
DX: U07.1 COVID-19 (principal); F41.9 Anxiety disorder, unspecified; F32.9 Major depressive disorder, single episode, unspecified; I10 Essential (primary) hypertension; Z87.440 Personal history of urinary (tract) infections; Z88.8 Allergy status to other drugs, medicaments and biological substances; Z88.5 Allergy status to narcotic agent; Z91.040 Latex allergy status; Z88.1 Allergy status to other antibiotic agents
CPT/HCPCS: 99282